=== PATIENT | male | born 1930 | race Caucasian/White ===

== ENCOUNTER 2016-03-07 10:06 | Emergency (ER) | payer MEDICARE ==
[~2016-03-07 10:06] MED LIST: /DULO30CA PO; /PANT40TA PO; ALBU17IN INH; ASPI81CH PO; CALC25TA PO; COMBAER6 INH; COMBRESP INH; COZA50TA PO; CYMB60CA3 PO; D 202000 PO; FLOM5CAP PO; FOLI1TAB2 PO; GABA-279 PO; GABA100C PO; INHALER INH; KEPP1TAB2 PO; KEPP500T6 PO; LOSA100T PO; MAGN400C2 PO; MAGN400T5 PO; MECL-68 PO; NEUR100C PO; NIFE15CA PO; PROTPAK PO; SELE25SHA TOP; SIMV20TA2 PO; SYMB16INH INH; SYMB80INH INH; SYNT50TA PO; SYNTHROID PO; TRAZ50TA4 PO; TRIA1OI TOP; TYLE325T5 PO; VITA10002 PO; VITA100041 PO; VITA100T60 PO; ZOCO20TA PO; [UNRECOGNIZED DRUG - CODE] TOP
[2016-03-07] MEDS ORDERED: LABETALOL HCL 100 MG/20 ML VIAL As Ordered ONE (13:09)
[2016-03-07] MEDS ORDERED: OXAZEPAM 15 MG CAP As Ordered ONE (13:09)
[2016-03-07] MEDS ORDERED: ASPIRIN 81 MG CHEW TABLET As Ordered ONE (13:09)
--- NOTE | 2016-03-07 13:18 | REP ---
PA and lateral chest 03/07/2016 Indication redness of breath Comparison PA and lateral chest 02/06/2009, portable chest 11/04/2014 Cardiac silhouette is of normal size. Mild ectasia and tortuosity of descending thoracic aorta. Small left basilar nodular opacity of 6 mm diameter is most compatible with a nipple shadow. The bones and soft tissues are within normal limits. Impression: 1. Normal cardiomediastinal silhouette 2. 6 mm nodular opacity in left lower lung field is likely a nipple shadow. This can be evaluated by obtaining PA chest with nipple markers. Signed by Paige Morfin MD 03/07/2016 01:10 P
[2016-03-07 13:49] LABS: BASO % 0.1 % (0.0-1.0); EOS # 0.1 K/mm3 (0.0-0.50); EOS % 0.7 % (0.0-3.0); LARGE UNSTAINED CELL # 0.2 K/mm3 (0.0-0.4); LARGE UNSTAINED CELL % 2.1 % (0.0-4.0); LYMPH # 0.9 K/mm3 (1.5-4.5); MEAN CORPUSCULAR HEMOGLOBIN 30.1 pg (27.0-33.0); MEAN CORPUSCULAR HGB CONC 34.5 g/dl (32.0-36.5); MEAN CORPUSCULAR VOLUME 87.3 fl (80.0-96.0); MONO # 0.6 K/mm3 (0.0-0.8); MONO % 6.6 % (0.0-5.0); NEUTROPHILS # 7.2 K/mm3 (1.8-7.7); NEUTROPHILS % 80.5 % (36.0-66.0); PLATELET COUNT, AUTOMATED 166 k/mm3 (150-450); RED CELL DISTRIBUTION WIDTH 13.3 % (11.5-14.5)
[2016-03-07 13:59] LABS: ALBUMIN 3.6 GM/DL (3.2-5.2); ALKALINE PHOSPHATASE 70 U/L (45-117); ALT/SGPT 17 U/L (12-78); ANION GAP 13 MEQ/L (8-16); AST/SGOT 16 U/L (15-37); BILIRUBIN,DIRECT 0.1 MG/DL (0.0-0.2); BILIRUBIN,TOTAL 0.5 MG/DL (0.2-1.0); BLOOD UREA NITROGEN 23 MG/DL (7-18); CALCIUM LEVEL 8.9 MG/DL (8.8-10.2); CARBON DIOXIDE LEVEL 22 MEQ/L (21-32); CHLORIDE LEVEL 103 MEQ/L (98-107); CREATININE FOR GFR 1.46 MG/DL (0.70-1.30); GLOMERULAR FILTRATION RATE 48.5 (>35); GLUCOSE, FASTING 90 MG/DL (83-110); POTASSIUM SERUM 3.8 MEQ/L (3.5-5.1); SODIUM LEVEL 138 MEQ/L (136-145); TOTAL PROTEIN 7.2 GM/DL (6.4-8.2)
--- NOTE | 2016-03-07 16:26 | EDDOCDS ---
[facility] Name: Chidi May Age: 86 yrs Sex: Male : 1930 Arrival Date: 03/07/2016 Time: 10:06 Bed TR8 Private MD: Diagnosis: Anxiety disorder due to known physiological condition Presentation: 03/07 10:10 Presenting complaint: EMS states: INITIAL CALL WAS FOR DIFFICULTY BREATHING OXYGEN EVEN srm THOUGH SATS WERE IN HIGH 90'S. FEELING WEAK. HAVING ANXIETY. The last date and time the patient was known to be well was was at an unknown time on an unknown date. No acute neurological deficit is noted. The patients blood glucose was checked before arriving to the hospital and was found to be normal. Adult Sepsis Screening: The patient does not have new or worsening altered mentation. Suicide/Homicide risk assessment- the patient denies having any suicidal and/or homicidal ideations and does not present with any other emotional, behavioral or mental health complaints. Status: Patient is not a children's service worker or dependent. Transition of care: patient was not received from another setting of care. 10:10 Acuity: AMEE Level 3 srm 10:10 Method Of Arrival: Ambulance srm 10:22 Adult Sepsis Screening: Patient's respiratory rate is less than 22. Systolic blood srm pressure is greater than 100. Patient has a qSOFA score of 0- Negative Sepsis Screen. Care prior to arrival: IV initiated. Saline lock initiated. Glucose check. 18 g LAC fsbs 106. Triage Assessment: 10:22 The onset of the patients symptoms was at an unknown time. General: Appears in no srm apparent distress, Behavior is appropriate for age, cooperative. Pain: Denies pain. Neurological: Level of Consciousness is awake, alert, Oriented to person, place, time, Moves all extremities. Full function Speech is normal, slow to answer questions but normal for pt after craniotomy. Facial symmetry appears normal, Reports weakness. Historical: - Allergies: Morphine (Vomit); - Home Meds: 1. methylphenidate 5 mg Oral tab daily (Last dose: 03/06/2016) 2. Synthroid 50 mcg Oral tab 1 tab once daily (Last dose: 03/06/2016) 3. losartan 50 mg oral tab 1 tab once daily (Last dose: 03/06/2016) 4. simvastatin 20 mg Oral tab 1 tab once daily (Last dose: 03/06/2016) 5. pantoprazole 40 mg oral TbEC 1 tab once daily (Last dose: 03/06/2016) 6. duloxetine 60 mg Oral cpDR 1 cap once daily (Last dose: 03/06/2016) 7. levetiracetam 500 mg oral tab 2 times per day (Last dose: 03/06/2016) - PMHx: Hypercholesterolemia; Hypertension; GERD; Thyroid problem; COPD; Anxiety; Alcoholism; barin cancer; leiomyasarcoma scalp; colon cancer; cerebellar aneurysm; Subdural Hematoma; kidney disease stage 3; - PSHx: brain bleed; Craniotomy; toe nail removal; Appendectomy; - Social history: Smoking status: Patient states former smoker of tobacco. No barriers to communication noted, The patient speaks fluent Lithuanian, Speaks appropriately for age. - Family history: Not pertinent. - : The pt / caregiver states he / she is not on anticoagulants. Home medication list is obtained from external med list Unable to Verify Home Med List with the patient / caregiver. - Exposure Risk Screening:: None identified. Screenin:22 Screening information is obtained from the patient. Fall risk: No risks identified. js13 Assistance ADL's: requires no assistance with activities of daily living. Abuse/DV Screen: The patient / caregiver reports he/she is: not in a situation that causes fear, pain or injury. Nutritional screening: No deficits noted. Advance Directives: Currently, there is no health care proxy. home support is adequate. Assessment: 10:29 General: Appears in no apparent distress, Behavior is appropriate for age, cooperative, srm becomes anxious anD tearful when talking about son and grandson who are in [place] and in the hospital but he cant remember why. Respiratory: Airway is patent Respiratory effort is even, unlabored, Breath sounds are clear bilaterally. GI: Abdomen is non- distended Bowel sounds present X 4 quads. Abd is soft and non tender X 4 quads. Derm: No deficits noted. 10:45 General: Appears in no apparent distress, Behavior is appropriate for age, cooperative. ml6 Pain: Denies pain. Neurological: No deficits noted. Level of Consciousness is awake, alert, Oriented to person, place, time. Cardiovascular: No deficits noted. Capillary refill < 3 seconds is brisk in bilateral fingers toes Heart tones S1 S2 present. Respiratory: No deficits noted. Airway is patent Respiratory effort is even, unlabored, Respiratory pattern is regular, symmetrical, Breath sounds are clear bilaterally. GI: No deficits noted. 11:23 General: patient very anxious states that he was trying to call son and grandson in ml6 [place] and was having trouble making the call, states he then began feeling SOB. 12:30 Reassessment: patient anxious shaking, states that he needs to get ahold of his son. ml6 Daughter in to see patient, states that patient drinks heavily 1L whiskey per day, states no ETOH since last evening. 13:30 Reassessment: Patient appears in no apparent distress at this time. Patient denies pain ml6 at this time. Patient states feeling better. Patient states symptoms have improved. 14:30 Reassessment: Patient appears in no apparent distress at this time. Patient denies pain ml6 at this time. Patient states feeling better. Patient states symptoms have improved. 15:20 General: Appears in no apparent distress, comfortable, Behavior is appropriate for age, ml6 cooperative. Pain: Denies pain. Neurological: No deficits noted. Level of Consciousness is awake, alert, Oriented to person, place, time. Cardiovascular: No deficits noted. Capillary refill < 3 seconds is brisk in bilateral fingers toes Respiratory: No deficits noted. Airway is patent Respiratory effort is even, unlabored, Respiratory pattern is regular, symmetrical. Vital Signs: 10:22 BP 200 / 117; Pulse 59; Resp 18; Temp 99.0(TE); Pulse Ox 98% on R/A; Weight 71.67 kg; dem1 10:28 BP 190 / 88 RA Sitting (man/); [facility] 10:46 BP 178 / 63 (auto/); js13 10:46 Pulse 66 MON; Resp 16; Pulse Ox 98% on R/A; Pain 0/10; js13 11:01 BP 180 / 84 (auto/); js13 11:01 Pulse 66 MON; Resp 16; Pulse Ox 96% on R/A; js13 11:16 BP 179 / 78 (auto/); js13 11:16 Pulse 64 MON; Resp 16; Pulse Ox 96% on R/A; js13 12:30 ml6 13:30 BP 177 / 98; Pulse 65; Resp 18; Pulse Ox 98% on R/A; Pain 0/10; ml6 14:48 BP 160 / 74; Pulse 65; Resp 18; Pulse Ox 98% on R/A; ml6 15:20 BP 155 / 84; Pulse 62; Resp 18; Temp 98.3(O); Pulse Ox 98% on R/A; Pain 0/10; ml6 12:30 patient keeps taking off bp cuff, attempts made to get bp ml6 Vitals: 10:22 Log In Time N/A - ambulance arrival. dem1 10:28 Glucose Measurement D-stick done by EMS. [facility] ED Course: 10:07 Patient visited by Tressa Forrest, Entry Level Project Coordinator. deg 10:07 Patient moved to Waiting deg 10:08 Patient moved to 11 deg 10:12 Triage Initiated srm 10:28 The patient / caregiver is instructed regarding the plan of care and ED course. Patient srm has correct armband on for positive identification. Placed in gown. Bed in low position. Call light in reach. Side rails up X2. front desk monitor on. Pulse ox on. NIBP on. 10:28 Maintain field IV. Dressing intact. Good blood return noted. Site clean & dry. srm 10:31 Patient visited by Samantha Lemus, MARVA. srm 11:04 Patient visited by Zhang Castro, MARVA. ml6 11:30 Patient visited by Zhang Castro, MARVA. ml6 12:08 Patient visited by Niurka Guzman PCA. ls3 12:16 Geremias Oconnor FNP is PHCP. ke 12:16 Patient visited by Geremias Oconnor FNP. ke 12:16 Patient visited by Geremias Oconnor FNP. ke 12:49 Patient visited by Geremias Oconnor FNP. ke 13:03 [facility] Payment Agreement was scanned into [employer] and attached to record. jp5 13:07 EKG done. (by ED staff). Reviewed by Geremias PEÑA. ct3 13:10 Patient visited by Mari Figueroa PCA. ct3 13:34 Patient visited by Zhang Castro, MARVA. ml6 13:34 Liver Profile Sent. ml6 13:35 -Blood Culture Sent. ml6 13:35 B-Type Natiuretic Peptide Sent. ml6 13:35 Basic Metabolic Profile Sent. ml6 13:35 CBC with Diff Sent. ml6 13:35 ETOH Sent. ml6 13:35 Cardiac Injury Profile Sent. ml6 13:35 Troponin Sent. ml6 13:35 BLOOD CULTURES Sent. ml6 13:45 Chest, 2 View (pa\E\lat) Returned. EDMS 13:57 Patient visited by Geremias Oconnor FNP. ke 14:21 Patient visited by Geremias Oconnor FNP. ke 14:39 Patient visited by Zhang Castro RN. ml6 15:07 Chris Miranda is Referral Physician. ke 15:20 Discontinued IV bleeding controlled, pressure dressing applied, No redness/swelling at ml6 site. No procedures done that require assistance. 15:57 Patient moved to [place] [id number] Administered Medications: 13:10 Drug: Oxazepam 30 mg [oxazepam 15 mg capsule (2 caps)] Route: PO; ml6 13:10 Drug: Aspirin 324 mg [aspirin 81 mg chewable tablet (4 tabs)] Route: PO; ml6 13:10 Drug: Labetalol 10 mg [labetalol 5 mg/mL intravenous solution (2 mL)] Route: IVP; Rate: ml6 bolus; Infused Over: 2 mins; Site: left antecubital; 14:39 Drug: Labetalol 10 mg [labetalol 5 mg/mL intravenous solution (2 mL)] Route: IVP; Rate: ml6 bolus; Infused Over: 2 mins; Site: left antecubital; Order Results: Lab Order: B-Type Natiuretic Peptide; SPEC'M 03/07/16 13:29 Test: BRAIN NATRIURETIC PEPTIDE; Value: 94.7; Range: <100; Units: PG/ML; Status: F Lab Order: Basic Metabolic Profile; SPEC'M 03/07/16 13:29 Test: GLUCOSE, FASTING; Value: 90; Range: 83-110; Units: MG/DL; Status: F Test: BLOOD UREA NITROGEN; Value: 23; Range: 7-18; Abnormal: Above high normal; Units: MG/DL; Status: F Test: CREATININE FOR GFR; Value: 1.46; Range: 0.70-1.30; Abnormal: Above high normal; Units: MG/DL; Status: F Test: GLOMERULAR FILTRATION RATE; Value: 48.5; Range: >35; Status: F Test: SODIUM LEVEL; Value: 138; Range: 136-145; Units: MEQ/L; Status: F Test: POTASSIUM SERUM; Value: 3.8; Range: 3.5-5.1; Units: MEQ/L; Status: F Test: CHLORIDE LEVEL; Value: 103; Range: 98-107; Units: MEQ/L; Status: F Test: CARBON DIOXIDE LEVEL; Value: 22; Range: 21-32; Units: MEQ/L; Status: F Test: ANION GAP; Value: 13; Range: 8-16; Units: MEQ/L; Status: F Test: CALCIUM LEVEL; Value: 8.9; Range: 8.8-10.2; Units: MG/DL; Status: F Test Note: ; Units are mL/min/1.73 m2 Chronic Kidney Disease Staging per NKF: Stage I & II GFR >=60 Normal to Mildly Decreased Stage III GFR 30-59 Moderately Decreased Stage IV GFR 15-29 Severely Decreased Stage V GFR <15 Very Little GFR Left ESRD GFR <15 on LOOM CHANGER Lab Order: CBC with Diff; SPEC'M 03/07/16 13:29 Test: WHITE BLOOD COUNT; Value: 9.0; Range: 4.0-10.0; Units: K/mm3; Status: F Test: RED BLOOD COUNT; Value: 4.76; Range: 4.30-6.10; Units: M/mm3; Status: F Test: HEMOGLOBIN; Value: 14.3; Range: 14.0-18.0; Units: g/dl; Status: F Test: HEMATOCRIT; Value: 41.6; Range: 42.0-52.0; Abnormal: Below low normal; Units: %; Status: F Test: MEAN CORPUSCULAR VOLUME; Value: 87.3; Range: 80.0-96.0; Units: fl; Status: F Test: MEAN CORPUSCULAR HEMOGLOBIN; Value: 30.1; Range: 27.0-33.0; Units: pg; Status: F Test: MEAN CORPUSCULAR HGB CONC; Value: 34.5; Range: 32.0-36.5; Units: g/dl; Status: F Test: RED CELL DISTRIBUTION WIDTH; Value: 13.3; Range: 11.5-14.5; Units: %; Status: F Test: PLATELET COUNT, AUTOMATED; Value: 166; Range: 150-450; Units: k/mm3; Status: F Test: NEUTROPHILS %; Value: 80.5; Range: 36.0-66.0; Abnormal: Above high normal; Units: %; Status: F Test: LYMPH %; Value: 10.0; Range: 24.0-44.0; Abnormal: Below low normal; Units: %; Status: F Test: MONO %; Value: 6.6; Range: 0.0-5.0; Abnormal: Above high normal; Units: %; Status: F Test: EOS %; Value: 0.7; Range: 0.0-3.0; Units: %; Status: F Test: BASO %; Value: 0.1; Range: 0.0-1.0; Units: %; Status: F Test: LARGE UNSTAINED CELL %; Value: 2.1; Range: 0.0-4.0; Units: %; Status: F Test: NEUTROPHILS #; Value: 7.2; Range: 1.8-7.7; Units: K/mm3; Status: F Test: LYMPH #; Value: 0.9; Range: 1.5-4.5; Abnormal: Below low normal; Units: K/mm3; Status: F Test: MONO #; Value: 0.6; Range: 0.0-0.8; Units: K/mm3; Status: F Test: EOS #; Value: 0.1; Range: 0.0-0.50; Units: K/mm3; Status: F Test: BASO #; Value: 0.0; Range: 0.0-0.2; Units: K/mm3; Status: F Test: LARGE UNSTAINED CELL #; Value: 0.2; Range: 0.0-0.4; Units: K/mm3; Status: F Lab Order: Cardiac Injury Profile; SPEC'M 03/07/16 13:29 Test: CPK CREATINE PHOSPHOKINASE; Value: 45; Range: 39-308; Units: U/L; Status: F Test: CK-MB VALUE MASS; Value: 1.0; Range: 0.0-3.6; Units: NG/ML; Status: F Test: MB/CK RELATIVE INDEX; Value: 2.22; Range: < OR =4; Status: F Test Note: ; DIAGNOSIS CRITERIA MMB ng/ml Relative Index (RI) NON-AMI < or = 5 N/A [place]ONE > 5 < or = 4 AMI > 5 > 4 Lab Order: Troponin; SPEC'M 03/07/16 13:29 Test: TROPONIN I; Value: < 0.02; Range: < 0.10; Units: NG/ML; Status: F Test Note: ; Troponin I Reference Interval for Siemens Metafused LOCI: 99th Percentile= 0.00-0.045 ng/ml Risk Stratification: <= 0.10 ng/ml Decreased Risk for Adverse Clinical Events. 0.10-1.50 ng/ml Increased Risk for Adverse Clinical Events. Evaluation of additional criterion and/or repeat testing in 2-6 hours is suggested to rule out myocardial damage. >= 1.50 ng/ml Indicative of Myocardial Injury. Lab Order: ETOH; SPEC' 03/07/16 13:29 Test: ETHYL ALCOHOL (ETHANOL); Value: < 0.003; Range: 0.000-0.010; Units: %; Status: F Lab Order: Liver Profile; [facility]' 03/07/16 13:29 Test: AST/SGOT; Value: 16; Range: 15-37; Units: U/L; Status: F Test: ALT/SGPT; Value: 17; Range: 12-78; Units: U/L; Status: F Test: ALKALINE PHOSPHATASE; Value: 70; Range: 45-117; Units: U/L; Status: F Test: BILIRUBIN,TOTAL; Value: 0.5; Range: 0.2-1.0; Units: MG/DL; Status: F Test: BILIRUBIN,DIRECT; Value: 0.1; Range: 0.0-0.2; Units: MG/DL; Status: F Test: TOTAL PROTEIN; Value: 7.2; Range: 6.4-8.2; Units: GM/DL; Status: F Test: ALBUMIN; Value: 3.6; Range: 3.2-5.2; Units: GM/DL; Status: F Test: ALBUMIN/GLOBULIN RATIO; Value: 1.00; Range: 1.00-1.93; Status: F Radiology Order: Chest, 2 View (pa\E\lat) Test: Chest, 2 View (pa\E\lat) REASON FOR EXAMINATION: Shortness of Breath; PA and lateral chest 03/07/2016; ; Indication redness of breath; ; Comparison PA and lateral chest 02/06/2009, portable chest 11/04/2014; ; Cardiac silhouette is of normal size. Mild ectasia and tortuosity of descending; thoracic aorta. Small left basilar nodular opacity of 6 mm diameter is most; compatible with a nipple shadow.; ; The bones and soft tissues are within normal limits.; ; Impression:; 1. Normal cardiomediastinal silhouette; 2. 6 mm nodular opacity in left lower lung field is likely a nipple shadow.; This can be evaluated by obtaining PA chest with nipple markers.; ; ; Signed by; Paige Morfin MD 03/07/2016 01:10 P; Outcome: 15:08 Discharge ordered by Provider. ke 15:20 Discharge Assessment: Patient awake, alert and oriented x 3. No cognitive and/or ml6 functional deficits noted. Patient verbalized understanding of disposition instructions. patient administered narcotics - no. The following High Risk Discharge criteria are identified: None. Discharged to home ambulatory, with family. Condition: stable. Discharge instructions given to patient, family, Instructed on discharge instructions, follow up and referral plans. medication usage, Demonstrated understanding of instructions, medications, Pt was receptive of discharge instructions/ teaching. Prescriptions given X 1. CT Study completed. Property :Personal belongings accompany Pt. 16:25 Patient left the ED. ml6 Signatures: Dispatcher [employer] EDMS Tressa Forrest, Entry Level Project Coordinator Unit deg Samantha Lemus RN RN srm Elsner, Karl, FITNESS CONSULTANT FITNESS CONSULTANT Gissell Pendleton,RN Zhang Wilson RN RN ml6 Mari Figueroa, VACUUM CLEANER MECHANIC VACUUM CLEANER MECHANIC ct3 Ivette Matthew dem1 Gissell Lau,RN RN js13 Aminata Taylor jp5 Niurka Guzman, VACUUM CLEANER MECHANIC VACUUM CLEANER MECHANIC ls3 Corrections: (The following items were deleted from the chart) 10:24 10:22 BP 200 / 117; Pulse 59bpm; Resp 18bpm; Pulse Ox 98% RA; Temp 99.0F Temporal; dem1 dem1 11:27 10:45 General: Appears in no apparent distress, Behavior is appropriate for age, ml6 sailaja brown 11:27 10:45 Pain: Denies pain. js13 ml6 : 10:45 Neurological: No deficits noted. Level of Consciousness is awake, alert, Oriented ml6 to person, place, time, [facility] : 10:45 Cardiovascular: No deficits noted. Capillary refill < 3 seconds is brisk in ml6 bilateral fingers toes Heart tones S1 S2 present [facility] : 10:45 Respiratory: No deficits noted. Airway is patent Respiratory effort is even, ml6 unlabored, Respiratory pattern is regular, symmetrical, Breath sounds are clear bilaterally. [facility] : 10:45 GI: No deficits noted. [facility] ml6 MTDD
--- NOTE | 2016-03-07 16:26 | EDDOCDS ---
Physician Documentation [facility] Name: Chidi May Age: 86 yrs Sex: Male : 1930 Arrival Date: 03/07/2016 Time: 10:06 Bed TR8 Private MD: Disposition: 03/07/16 15:08 Discharged to Home/Self Care. Impression: Anxiety disorder due to known physiological condition. - Condition is Stable. - Discharge Instructions: Alcohol Abuse and Nutrition, Panic Attacks, [id number]. - Prescriptions for oxazepam 30 mg Oral capsule - take 1 capsule by ORAL route 3 times per day; 20 capsule. - Medication Reconciliation, Local Pharmacy Hours form. - Follow up: Chris Miranda; When: 4 - 5 days; Reason: Recheck today's complaints, Continuance of care. - Problem is an acute exacerbation. - Symptoms have improved. Historical: - Allergies: Morphine (Vomit); - Home Meds: 1. methylphenidate 5 mg Oral tab daily (Last dose: 03/06/2016) 2. Synthroid 50 mcg Oral tab 1 tab once daily (Last dose: 03/06/2016) 3. losartan 50 mg oral tab 1 tab once daily (Last dose: 03/06/2016) 4. simvastatin 20 mg Oral tab 1 tab once daily (Last dose: 03/06/2016) 5. pantoprazole 40 mg oral TbEC 1 tab once daily (Last dose: 03/06/2016) 6. duloxetine 60 mg Oral cpDR 1 cap once daily (Last dose: 03/06/2016) 7. levetiracetam 500 mg oral tab 2 times per day (Last dose: 03/06/2016) - PMHx: Hypercholesterolemia; Hypertension; GERD; Thyroid problem; COPD; Anxiety; Alcoholism; barin cancer; leiomyasarcoma scalp; colon cancer; cerebellar aneurysm; Subdural Hematoma; kidney disease stage 3; - PSHx: brain bleed; Craniotomy; toe nail removal; Appendectomy; - Social history: Smoking status: Patient states former smoker of tobacco. No barriers to communication noted, The patient speaks fluent Maori, Speaks appropriately for age. - Family history: Not pertinent. - : The pt / caregiver states he / she is not on anticoagulants. Home medication list is obtained from external med list Unable to Verify Home Med List with the patient / caregiver. - Exposure Risk Screening:: None identified. Vital Signs: 03/07 10:22 BP 200 / 117; Pulse 59; Resp 18; Temp 99.0(TE); Pulse Ox 98% on R/A; Weight 71.67 kg / dem1 158.01 lbs; 10:28 BP 190 / 88 RA Sitting (man/); srm 10:46 BP 178 / 63 (auto/); js13 10:46 Pulse 66 MON; Resp 16; Pulse Ox 98% on R/A; Pain 0/10; js13 11:01 BP 180 / 84 (auto/); js13 11:01 Pulse 66 MON; Resp 16; Pulse Ox 96% on R/A; js13 11:16 BP 179 / 78 (auto/); js13 11:16 Pulse 64 MON; Resp 16; Pulse Ox 96% on R/A; js13 12:30 ml6 13:30 BP 177 / 98; Pulse 65; Resp 18; Pulse Ox 98% on R/A; Pain 0/10; ml6 14:48 BP 160 / 74; Pulse 65; Resp 18; Pulse Ox 98% on R/A; ml6 15:20 BP 155 / 84; Pulse 62; Resp 18; Temp 98.3(O); Pulse Ox 98% on R/A; Pain 0/10; ml6 12:30 patient keeps taking off bp cuff, attempts made to get bp ml6 MDM: 12:29 -Blood Culture (Adults Only), peripheral from different site, or from device/port/PICC ke etc. if present ordered. 12:29 Program Control Analyst/Pulse Ox/q 15 min VS ordered. ke 12:29 IV Saline Lock ordered. ke 12:29 Oxygen at 4L/Min NC or Home dosage ordered. ke 12:29 Rhythm Strip to chart ordered. ke 12:29 Oxazepam 30 mg PO once ordered. ke 12:30 B-Type Natiuretic Peptide Ordered. EDMS 12:30 Basic Metabolic Profile Ordered. EDMS 12:30 CBC with Diff Ordered. EDMS 12:30 Cardiac Injury Profile Ordered. EDMS 12:30 Troponin Ordered. EDMS 12:30 ETOH Ordered. EDMS 12:30 Liver Profile Ordered. EDMS 12:30 -Blood Culture Ordered. EDMS 12:30 Aspirin Chewable Tablet 324 mg PO once ordered. ke 12:30 Labetalol 10 mg IVP at bolus once over 2 mins ordered. ke 12:31 Chest, 2 View (pa\E\lat) Ordered. EDMS 12:31 ECG WITH READING ER PHYS+CARDIAG ordered. EDMS 12:38 -Blood Culture (Adults Only), peripheral from different site, or from device/port/PICC deg etc. if present complete. 12:39 BLOOD CULTURES Ordered. EDMS 13:03 [facility] Payment Agreement was scanned into [employer] and attached to record. jp5 13:03 Financial registration complete. jp5 13:45 Keppra (short red top tube) Ordered. EDMS 14:04 Basic Metabolic Profile Reviewed. ke 14:04 CBC with Diff Reviewed. ke 14:04 Troponin Reviewed. ke 14:04 ETOH Reviewed. ke 14:04 Liver Profile Reviewed. ke 14:04 Chest, 2 View (pa\E\lat) Reviewed. ke 14:06 Labetalol 10 mg IVP at bolus once over 2 mins ordered. ke 14:22 Basic Metabolic Profile Reviewed. ke 14:22 Cardiac Injury Profile Reviewed. ke 14:22 Troponin Reviewed. ke 14:22 ETOH Reviewed. ke 14:22 Liver Profile Reviewed. ke 14:37 B-Type Natiuretic Peptide Reviewed. ke Administered Medications: 13:10 Drug: Oxazepam 30 mg [oxazepam 15 mg capsule (2 caps)] Route: PO; ml6 13:10 Drug: Aspirin 324 mg [aspirin 81 mg chewable tablet (4 tabs)] Route: PO; ml6 13:10 Drug: Labetalol 10 mg [labetalol 5 mg/mL intravenous solution (2 mL)] Route: IVP; Rate: ml6 bolus; Infused Over: 2 mins; Site: left antecubital; 14:39 Drug: Labetalol 10 mg [labetalol 5 mg/mL intravenous solution (2 mL)] Route: IVP; Rate: ml6 bolus; Infused Over: 2 mins; Site: left antecubital; Signatures: Dispatcher [employer] EDMS Tressa Forrest, Petroleum Refinery Operator Unit deg Samantha Lemus RN RN srm Elsner, Karl, SEA KAYAKING GUIDE SEA KAYAKING GUIDE Zhang De La Vega RN RN ml6 Aminata Taylor jp5 The chart was reviewed and I authenticate all verbal orders and agree with the evaluation and treatment provided.Attachments: 13:03 [facility] Payment Agreement jp5 [id number]
--- NOTE | 2016-03-08 08:27 | ECGEPIP ---
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
--- NOTE | 2016-03-09 17:26 | EDDOCDS ---
Physician Documentation [facility] Name: Chidi May Age: 86 yrs Sex: Male : 1930 Arrival Date: 03/07/2016 Time: 10:06 Bed TR8 Private MD: Disposition: 03/07/16 15:08 Discharged to Home/Self Care. Impression: Anxiety disorder due to known physiological condition. - Condition is Stable. - Discharge Instructions: Alcohol Abuse and Nutrition, Panic Attacks, [id number]. - Prescriptions for oxazepam 30 mg Oral capsule - take 1 capsule by ORAL route 3 times per day; 20 capsule. - Medication Reconciliation, Local Pharmacy Hours form. - Follow up: Chris Miranda; When: 4 - 5 days; Reason: Recheck today's complaints, Continuance of care. - Problem is an acute exacerbation. - Symptoms have improved. Historical: - Allergies: Morphine (Vomit); - Home Meds: 1. methylphenidate 5 mg Oral tab daily (Last dose: 03/06/2016) 2. Synthroid 50 mcg Oral tab 1 tab once daily (Last dose: 03/06/2016) 3. losartan 50 mg oral tab 1 tab once daily (Last dose: 03/06/2016) 4. simvastatin 20 mg Oral tab 1 tab once daily (Last dose: 03/06/2016) 5. pantoprazole 40 mg oral TbEC 1 tab once daily (Last dose: 03/06/2016) 6. duloxetine 60 mg Oral cpDR 1 cap once daily (Last dose: 03/06/2016) 7. levetiracetam 500 mg oral tab 2 times per day (Last dose: 03/06/2016) - PMHx: Hypercholesterolemia; Hypertension; GERD; Thyroid problem; COPD; Anxiety; Alcoholism; barin cancer; leiomyasarcoma scalp; colon cancer; cerebellar aneurysm; Subdural Hematoma; kidney disease stage 3; - PSHx: brain bleed; Craniotomy; toe nail removal; Appendectomy; - Social history: Smoking status: Patient states former smoker of tobacco. No barriers to communication noted, The patient speaks fluent Pashto, Speaks appropriately for age. - Family history: Not pertinent. - : The pt / caregiver states he / she is not on anticoagulants. Home medication list is obtained from external med list Unable to Verify Home Med List with the patient / caregiver. - Exposure Risk Screening:: None identified. Vital Signs: 03/07 10:22 BP 200 / 117; Pulse 59; Resp 18; Temp 99.0(TE); Pulse Ox 98% on R/A; Weight 71.67 kg / dem1 158.01 lbs; 10:28 BP 190 / 88 RA Sitting (man/); srm 10:46 BP 178 / 63 (auto/); js13 10:46 Pulse 66 MON; Resp 16; Pulse Ox 98% on R/A; Pain 0/10; js13 11:01 BP 180 / 84 (auto/); js13 11:01 Pulse 66 MON; Resp 16; Pulse Ox 96% on R/A; js13 11:16 BP 179 / 78 (auto/); js13 11:16 Pulse 64 MON; Resp 16; Pulse Ox 96% on R/A; js13 12:30 ml6 13:30 BP 177 / 98; Pulse 65; Resp 18; Pulse Ox 98% on R/A; Pain 0/10; ml6 14:48 BP 160 / 74; Pulse 65; Resp 18; Pulse Ox 98% on R/A; ml6 15:20 BP 155 / 84; Pulse 62; Resp 18; Temp 98.3(O); Pulse Ox 98% on R/A; Pain 0/10; ml6 12:30 patient keeps taking off bp cuff, attempts made to get bp ml6 MDM: 12:29 -Blood Culture (Adults Only), peripheral from different site, or from device/port/PICC ke etc. if present ordered. 12:29 Children'S Lunchroom Supervisor/Pulse Ox/q 15 min VS ordered. ke 12:29 IV Saline Lock ordered. ke 12:29 Oxygen at 4L/Min NC or Home dosage ordered. ke 12:29 Rhythm Strip to chart ordered. ke 12:29 Oxazepam 30 mg PO once ordered. ke 12:30 B-Type Natiuretic Peptide Ordered. EDMS 12:30 Basic Metabolic Profile Ordered. EDMS 12:30 CBC with Diff Ordered. EDMS 12:30 Cardiac Injury Profile Ordered. EDMS 12:30 Troponin Ordered. EDMS 12:30 ETOH Ordered. EDMS 12:30 Liver Profile Ordered. EDMS 12:30 -Blood Culture Ordered. EDMS 12:30 Aspirin Chewable Tablet 324 mg PO once ordered. ke 12:30 Labetalol 10 mg IVP at bolus once over 2 mins ordered. ke 12:31 Chest, 2 View (pa\E\lat) Ordered. EDMS 12:31 ECG WITH READING ER PHYS+CARDIAG ordered. EDMS 12:38 -Blood Culture (Adults Only), peripheral from different site, or from device/port/PICC deg etc. if present complete. 12:39 BLOOD CULTURES Ordered. EDMS 13:03 [facility] Payment Agreement was scanned into [employer] and attached to record. jp5 13:03 Financial registration complete. jp5 13:45 Keppra (short red top tube) Ordered. EDMS 14:04 Basic Metabolic Profile Reviewed. ke 14:04 CBC with Diff Reviewed. ke 14:04 Troponin Reviewed. ke 14:04 ETOH Reviewed. ke 14:04 Liver Profile Reviewed. ke 14:04 Chest, 2 View (pa\E\lat) Reviewed. ke 14:06 Labetalol 10 mg IVP at bolus once over 2 mins ordered. ke 14:22 Basic Metabolic Profile Reviewed. ke 14:22 Cardiac Injury Profile Reviewed. ke 14:22 Troponin Reviewed. ke 14:22 ETOH Reviewed. ke 14:22 Liver Profile Reviewed. ke 14:37 B-Type Natiuretic Peptide Reviewed. ke 03/08 09:34 T-Sheet-- Draft Copy was scanned into [employer] and attached to record. gb 09:35 ECG/EKG was scanned into [employer] and attached to record. gb 09:36 Trend VS was scanned into [employer] and attached to record. gb 09:36 PCR was scanned into [employer] and attached to record. gb Administered Medications: 03/07 13:10 Drug: Oxazepam 30 mg [oxazepam 15 mg capsule (2 caps)] Route: PO; ml6 13:10 Drug: Aspirin 324 mg [aspirin 81 mg chewable tablet (4 tabs)] Route: PO; ml6 13:10 Drug: Labetalol 10 mg [labetalol 5 mg/mL intravenous solution (2 mL)] Route: IVP; Rate: ml6 bolus; Infused Over: 2 mins; Site: left antecubital; 14:39 Drug: Labetalol 10 mg [labetalol 5 mg/mL intravenous solution (2 mL)] Route: IVP; Rate: ml6 bolus; Infused Over: 2 mins; Site: left antecubital; Signatures: Dispatcher [employer] EDTressa Sierra, System Support Developer Unit deg Samantha Lemus, RN RN [facility] Swati Avila, Reg Reg gb Geremias Oconnor, GRINDER SET UP OPERATOR GEAR TOOL GRINDER SET UP OPERATOR GEAR TOOL Zhang De La Vega, RN RN ml6 Aminata Taylor jp5 The chart was reviewed and I authenticate all verbal orders and agree with the evaluation and treatment provided.Attachments: 13:03 [facility] Payment Agreement jp5 03/08 09:34 T-Sheet-- Draft Copy 09:35 ECG/EKG Chart Complete MTDD
--- NOTE | 2016-03-09 17:26 | EDDOCDS ---
Physician Documentation [facility] Name: Chidi May Age: 86 yrs Sex: Male : 1930 Arrival Date: 03/07/2016 Time: 10:06 Bed TR8 Private MD: Disposition: 03/07/16 15:08 Discharged to Home/Self Care. Impression: Anxiety disorder due to known physiological condition. - Condition is Stable. - Discharge Instructions: Alcohol Abuse and Nutrition, Panic Attacks, [id number]. - Prescriptions for oxazepam 30 mg Oral capsule - take 1 capsule by ORAL route 3 times per day; 20 capsule. - Medication Reconciliation, Local Pharmacy Hours form. - Follow up: Chris Miranda; When: 4 - 5 days; Reason: Recheck today's complaints, Continuance of care. - Problem is an acute exacerbation. - Symptoms have improved. Historical: - Allergies: Morphine (Vomit); - Home Meds: 1. methylphenidate 5 mg Oral tab daily (Last dose: 03/06/2016) 2. Synthroid 50 mcg Oral tab 1 tab once daily (Last dose: 03/06/2016) 3. losartan 50 mg oral tab 1 tab once daily (Last dose: 03/06/2016) 4. simvastatin 20 mg Oral tab 1 tab once daily (Last dose: 03/06/2016) 5. pantoprazole 40 mg oral TbEC 1 tab once daily (Last dose: 03/06/2016) 6. duloxetine 60 mg Oral cpDR 1 cap once daily (Last dose: 03/06/2016) 7. levetiracetam 500 mg oral tab 2 times per day (Last dose: 03/06/2016) - PMHx: Hypercholesterolemia; Hypertension; GERD; Thyroid problem; COPD; Anxiety; Alcoholism; barin cancer; leiomyasarcoma scalp; colon cancer; cerebellar aneurysm; Subdural Hematoma; kidney disease stage 3; - PSHx: brain bleed; Craniotomy; toe nail removal; Appendectomy; - Social history: Smoking status: Patient states former smoker of tobacco. No barriers to communication noted, The patient speaks fluent Latvian, Speaks appropriately for age. - Family history: Not pertinent. - : The pt / caregiver states he / she is not on anticoagulants. Home medication list is obtained from external med list Unable to Verify Home Med List with the patient / caregiver. - Exposure Risk Screening:: None identified. Vital Signs: 03/07 10:22 BP 200 / 117; Pulse 59; Resp 18; Temp 99.0(TE); Pulse Ox 98% on R/A; Weight 71.67 kg / dem1 158.01 lbs; 10:28 BP 190 / 88 RA Sitting (man/); srm 10:46 BP 178 / 63 (auto/); js13 10:46 Pulse 66 MON; Resp 16; Pulse Ox 98% on R/A; Pain 0/10; js13 11:01 BP 180 / 84 (auto/); js13 11:01 Pulse 66 MON; Resp 16; Pulse Ox 96% on R/A; js13 11:16 BP 179 / 78 (auto/); js13 11:16 Pulse 64 MON; Resp 16; Pulse Ox 96% on R/A; js13 12:30 ml6 13:30 BP 177 / 98; Pulse 65; Resp 18; Pulse Ox 98% on R/A; Pain 0/10; ml6 14:48 BP 160 / 74; Pulse 65; Resp 18; Pulse Ox 98% on R/A; ml6 15:20 BP 155 / 84; Pulse 62; Resp 18; Temp 98.3(O); Pulse Ox 98% on R/A; Pain 0/10; ml6 12:30 patient keeps taking off bp cuff, attempts made to get bp ml6 MDM: 12:29 -Blood Culture (Adults Only), peripheral from different site, or from device/port/PICC ke etc. if present ordered. 12:29 Energy Efficiency Finance Manager/Pulse Ox/q 15 min VS ordered. ke 12:29 IV Saline Lock ordered. ke 12:29 Oxygen at 4L/Min NC or Home dosage ordered. ke 12:29 Rhythm Strip to chart ordered. ke 12:29 Oxazepam 30 mg PO once ordered. ke 12:30 B-Type Natiuretic Peptide Ordered. EDMS 12:30 Basic Metabolic Profile Ordered. EDMS 12:30 CBC with Diff Ordered. EDMS 12:30 Cardiac Injury Profile Ordered. EDMS 12:30 Troponin Ordered. EDMS 12:30 ETOH Ordered. EDMS 12:30 Liver Profile Ordered. EDMS 12:30 -Blood Culture Ordered. EDMS 12:30 Aspirin Chewable Tablet 324 mg PO once ordered. ke 12:30 Labetalol 10 mg IVP at bolus once over 2 mins ordered. ke 12:31 Chest, 2 View (pa\E\lat) Ordered. EDMS 12:31 ECG WITH READING ER PHYS+CARDIAG ordered. EDMS 12:38 -Blood Culture (Adults Only), peripheral from different site, or from device/port/PICC deg etc. if present complete. 12:39 BLOOD CULTURES Ordered. EDMS 13:03 [facility] Payment Agreement was scanned into [employer] and attached to record. jp5 13:03 Financial registration complete. jp5 13:45 Keppra (short red top tube) Ordered. EDMS 14:04 Basic Metabolic Profile Reviewed. ke 14:04 CBC with Diff Reviewed. ke 14:04 Troponin Reviewed. ke 14:04 ETOH Reviewed. ke 14:04 Liver Profile Reviewed. ke 14:04 Chest, 2 View (pa\E\lat) Reviewed. ke 14:06 Labetalol 10 mg IVP at bolus once over 2 mins ordered. ke 14:22 Basic Metabolic Profile Reviewed. ke 14:22 Cardiac Injury Profile Reviewed. ke 14:22 Troponin Reviewed. ke 14:22 ETOH Reviewed. ke 14:22 Liver Profile Reviewed. ke 14:37 B-Type Natiuretic Peptide Reviewed. ke 03/08 09:34 T-Sheet-- Draft Copy was scanned into [employer] and attached to record. gb 09:35 ECG/EKG was scanned into [employer] and attached to record. gb 09:36 Trend VS was scanned into [employer] and attached to record. gb 09:36 PCR was scanned into [employer] and attached to record. gb Administered Medications: 03/07 13:10 Drug: Oxazepam 30 mg [oxazepam 15 mg capsule (2 caps)] Route: PO; ml6 13:10 Drug: Aspirin 324 mg [aspirin 81 mg chewable tablet (4 tabs)] Route: PO; ml6 13:10 Drug: Labetalol 10 mg [labetalol 5 mg/mL intravenous solution (2 mL)] Route: IVP; Rate: ml6 bolus; Infused Over: 2 mins; Site: left antecubital; 14:39 Drug: Labetalol 10 mg [labetalol 5 mg/mL intravenous solution (2 mL)] Route: IVP; Rate: ml6 bolus; Infused Over: 2 mins; Site: left antecubital; Signatures: Dispatcher [employer] EDTressa Sierra, Provider Relations Specialist Unit deg Samantha Lemus, RN RN [facility] Swati Avila, Reg Reg gb Geremias Oconnor, EMERGENCY MEDICAL TECHNICIAN/DRIVER EMERGENCY MEDICAL TECHNICIAN/DRIVER Zhang De La Vega, RN RN ml6 Aminata Taylor jp5 The chart was reviewed and I authenticate all verbal orders and agree with the evaluation and treatment provided.Attachments: 13:03 [facility] Payment Agreement jp5 03/08 09:34 T-Sheet-- Draft Copy 09:35 ECG/EKG Chart Complete MTDD
--- NOTE | 2016-03-09 17:26 | EDDOCDS ---
Nurse's Notes [facility] Name: Darian May Age: 86 yrs Sex: Male : 1930 Arrival Date: 03/07/2016 Time: 10:06 Bed TR8 Private MD: Diagnosis: Anxiety disorder due to known physiological condition Presentation: 03/07 10:10 Presenting complaint: EMS states: INITIAL CALL WAS FOR DIFFICULTY BREATHING OXYGEN EVEN srm THOUGH SATS WERE IN HIGH 90'S. FEELING WEAK. HAVING ANXIETY. The last date and time the patient was known to be well was was at an unknown time on an unknown date. No acute neurological deficit is noted. The patients blood glucose was checked before arriving to the hospital and was found to be normal. Adult Sepsis Screening: The patient does not have new or worsening altered mentation. Suicide/Homicide risk assessment- the patient denies having any suicidal and/or homicidal ideations and does not present with any other emotional, behavioral or mental health complaints. Status: Patient is not a teleservices representative or dependent. Transition of care: patient was not received from another setting of care. 10:10 Acuity: AMEE Level 3 srm 10:10 Method Of Arrival: Ambulance srm 10:22 Adult Sepsis Screening: Patient's respiratory rate is less than 22. Systolic blood srm pressure is greater than 100. Patient has a qSOFA score of 0- Negative Sepsis Screen. Care prior to arrival: IV initiated. Saline lock initiated. Glucose check. 18 g LAC fsbs 106. Triage Assessment: 10:22 The onset of the patients symptoms was at an unknown time. General: Appears in no srm apparent distress, Behavior is appropriate for age, cooperative. Pain: Denies pain. Neurological: Level of Consciousness is awake, alert, Oriented to person, place, time, Moves all extremities. Full function Speech is normal, slow to answer questions but normal for pt after craniotomy. Facial symmetry appears normal, Reports weakness. Historical: - Allergies: Morphine (Vomit); - Home Meds: 1. methylphenidate 5 mg Oral tab daily (Last dose: 03/06/2016) 2. Synthroid 50 mcg Oral tab 1 tab once daily (Last dose: 03/06/2016) 3. losartan 50 mg oral tab 1 tab once daily (Last dose: 03/06/2016) 4. simvastatin 20 mg Oral tab 1 tab once daily (Last dose: 03/06/2016) 5. pantoprazole 40 mg oral TbEC 1 tab once daily (Last dose: 03/06/2016) 6. duloxetine 60 mg Oral cpDR 1 cap once daily (Last dose: 03/06/2016) 7. levetiracetam 500 mg oral tab 2 times per day (Last dose: 03/06/2016) - PMHx: Hypercholesterolemia; Hypertension; GERD; Thyroid problem; COPD; Anxiety; Alcoholism; barin cancer; leiomyasarcoma scalp; colon cancer; cerebellar aneurysm; Subdural Hematoma; kidney disease stage 3; - PSHx: brain bleed; Craniotomy; toe nail removal; Appendectomy; - Social history: Smoking status: Patient states former smoker of tobacco. No barriers to communication noted, The patient speaks fluent Danish, Speaks appropriately for age. - Family history: Not pertinent. - : The pt / caregiver states he / she is not on anticoagulants. Home medication list is obtained from external med list Unable to Verify Home Med List with the patient / caregiver. - Exposure Risk Screening:: None identified. Screenin:22 Screening information is obtained from the patient. Fall risk: No risks identified. js13 Assistance ADL's: requires no assistance with activities of daily living. Abuse/DV Screen: The patient / caregiver reports he/she is: not in a situation that causes fear, pain or injury. Nutritional screening: No deficits noted. Advance Directives: Currently, there is no health care proxy. home support is adequate. Assessment: 10:29 General: Appears in no apparent distress, Behavior is appropriate for age, cooperative, srm becomes anxious anD tearful when talking about son and grandson who are in [place] and in the hospital but he cant remember why. Respiratory: Airway is patent Respiratory effort is even, unlabored, Breath sounds are clear bilaterally. GI: Abdomen is non- distended Bowel sounds present X 4 quads. Abd is soft and non tender X 4 quads. Derm: No deficits noted. 10:45 General: Appears in no apparent distress, Behavior is appropriate for age, cooperative. ml6 Pain: Denies pain. Neurological: No deficits noted. Level of Consciousness is awake, alert, Oriented to person, place, time. Cardiovascular: No deficits noted. Capillary refill < 3 seconds is brisk in bilateral fingers toes Heart tones S1 S2 present. Respiratory: No deficits noted. Airway is patent Respiratory effort is even, unlabored, Respiratory pattern is regular, symmetrical, Breath sounds are clear bilaterally. GI: No deficits noted. 11:23 General: patient very anxious states that he was trying to call son and grandson in ml6 [place] and was having trouble making the call, states he then began feeling SOB. 12:30 Reassessment: patient anxious shaking, states that he needs to get ahold of his son. ml6 Daughter in to see patient, states that patient drinks heavily 1L whiskey per day, states no ETOH since last evening. 13:30 Reassessment: Patient appears in no apparent distress at this time. Patient denies pain ml6 at this time. Patient states feeling better. Patient states symptoms have improved. 14:30 Reassessment: Patient appears in no apparent distress at this time. Patient denies pain ml6 at this time. Patient states feeling better. Patient states symptoms have improved. 15:20 General: Appears in no apparent distress, comfortable, Behavior is appropriate for age, ml6 cooperative. Pain: Denies pain. Neurological: No deficits noted. Level of Consciousness is awake, alert, Oriented to person, place, time. Cardiovascular: No deficits noted. Capillary refill < 3 seconds is brisk in bilateral fingers toes Respiratory: No deficits noted. Airway is patent Respiratory effort is even, unlabored, Respiratory pattern is regular, symmetrical. Vital Signs: 10:22 BP 200 / 117; Pulse 59; Resp 18; Temp 99.0(TE); Pulse Ox 98% on R/A; Weight 71.67 kg; dem1 10:28 BP 190 / 88 RA Sitting (man/); [facility] 10:46 BP 178 / 63 (auto/); js13 10:46 Pulse 66 MON; Resp 16; Pulse Ox 98% on R/A; Pain 0/10; js13 11:01 BP 180 / 84 (auto/); js13 11:01 Pulse 66 MON; Resp 16; Pulse Ox 96% on R/A; js13 11:16 BP 179 / 78 (auto/); js13 11:16 Pulse 64 MON; Resp 16; Pulse Ox 96% on R/A; js13 12:30 ml6 13:30 BP 177 / 98; Pulse 65; Resp 18; Pulse Ox 98% on R/A; Pain 0/10; ml6 14:48 BP 160 / 74; Pulse 65; Resp 18; Pulse Ox 98% on R/A; ml6 15:20 BP 155 / 84; Pulse 62; Resp 18; Temp 98.3(O); Pulse Ox 98% on R/A; Pain 0/10; ml6 12:30 patient keeps taking off bp cuff, attempts made to get bp ml6 Vitals: 10:22 Log In Time N/A - ambulance arrival. dem1 10:28 Glucose Measurement D-stick done by EMS. [facility] ED Course: 10:07 Patient visited by Tressa Forrest, Pricing Consultant. deg 10:07 Patient moved to Waiting deg 10:08 Patient moved to 11 deg 10:12 Triage Initiated srm 10:28 The patient / caregiver is instructed regarding the plan of care and ED course. Patient srm has correct armband on for positive identification. Placed in gown. Bed in low position. Call light in reach. Side rails up X2. groundwater monitoring technician on. Pulse ox on. NIBP on. 10:28 Maintain field IV. Dressing intact. Good blood return noted. Site clean & dry. srm 10:31 Patient visited by Samantha Lemus, MARVA. srm 11:04 Patient visited by Zhang Castro, MARVA. ml6 11:30 Patient visited by Zhang Castro, MARVA. ml6 12:08 Patient visited by Niurka Guzman PCA. ls3 12:16 Geremias Oconnor FNP is PHCP. ke 12:16 Patient visited by Geremias Oconnor FNP. ke 12:16 Patient visited by Geremias Oconnor FNP. ke 12:49 Patient visited by Geremias Oconnor FNP. ke 13:03 [facility] Payment Agreement was scanned into [employer] (formerly [employer]) and attached to record. jp5 13:07 EKG done. (by ED staff). Reviewed by Geremias PEÑA. ct3 13:10 Patient visited by Mari Figueroa PCA. ct3 13:34 Patient visited by Zhang Castro, MARVA. ml6 13:34 Liver Profile Sent. ml6 13:35 -Blood Culture Sent. ml6 13:35 B-Type Natiuretic Peptide Sent. ml6 13:35 Basic Metabolic Profile Sent. ml6 13:35 CBC with Diff Sent. ml6 13:35 ETOH Sent. ml6 13:35 Cardiac Injury Profile Sent. ml6 13:35 Troponin Sent. ml6 13:35 BLOOD CULTURES Sent. ml6 13:45 Chest, 2 View (pa\E\lat) Returned. EDMS 13:57 Patient visited by Geremias Oconnor FNP. ke 14:21 Patient visited by Geremias Oconnor FNP. ke 14:39 Patient visited by Zhang Castro RN. ml6 15:07 Chris Miranda is Referral Physician. ke 15:20 Discontinued IV bleeding controlled, pressure dressing applied, No redness/swelling at ml6 site. No procedures done that require assistance. 15:57 Patient moved to [place] [id number] 03/08 09:06 EKG-ADULT Returned. EDMS 09:34 T-Sheet-- Draft Copy was scanned into [employer] (formerly [employer]) and attached to record. gb 09:35 ECG/EKG was scanned into [employer] (formerly [employer]) and attached to record. 09:36 Trend VS was scanned into [employer] (formerly [employer]) and attached to record. gb 09:36 PCR was scanned into [employer] (formerly [employer]) and attached to record. gb Administered Medications: 03/07 13:10 Drug: Oxazepam 30 mg [oxazepam 15 mg capsule (2 caps)] Route: PO; ml6 13:10 Drug: Aspirin 324 mg [aspirin 81 mg chewable tablet (4 tabs)] Route: PO; ml6 13:10 Drug: Labetalol 10 mg [labetalol 5 mg/mL intravenous solution (2 mL)] Route: IVP; Rate: ml6 bolus; Infused Over: 2 mins; Site: left antecubital; 14:39 Drug: Labetalol 10 mg [labetalol 5 mg/mL intravenous solution (2 mL)] Route: IVP; Rate: ml6 bolus; Infused Over: 2 mins; Site: left antecubital; Attachments: 09:36 Trend VS gb Order Results: Lab Order: -Blood Culture; SPEC'M 03/07/16 13:29 Test: BLOOD CULTURE; Value: No growth after 24 hours . All specimens observed; Status: F Test: BLOOD CULTURE; Value: for 5 days. Results final at that time.; Status: F Test: BLOOD CULTURE; Value: No Growth after 48 hours. All Specimens observed; Status: F Test: BLOOD CULTURE; Value: for 7 days. Results final at that time.; Status: F Lab Order: B-Type Natiuretic Peptide; SPEC'M 03/07/16 13:29 Test: BRAIN NATRIURETIC PEPTIDE; Value: 94.7; Range: <100; Units: PG/ML; Status: F Lab Order: Basic Metabolic Profile; SPEC'M 03/07/16 13:29 Test: GLUCOSE, FASTING; Value: 90; Range: 83-110; Units: MG/DL; Status: F Test: BLOOD UREA NITROGEN; Value: 23; Range: 7-18; Abnormal: Above high normal; Units: MG/DL; Status: F Test: CREATININE FOR GFR; Value: 1.46; Range: 0.70-1.30; Abnormal: Above high normal; Units: MG/DL; Status: F Test: GLOMERULAR FILTRATION RATE; Value: 48.5; Range: >35; Status: F Test: SODIUM LEVEL; Value: 138; Range: 136-145; Units: MEQ/L; Status: F Test: POTASSIUM SERUM; Value: 3.8; Range: 3.5-5.1; Units: MEQ/L; Status: F Test: CHLORIDE LEVEL; Value: 103; Range: 98-107; Units: MEQ/L; Status: F Test: CARBON DIOXIDE LEVEL; Value: 22; Range: 21-32; Units: MEQ/L; Status: F Test: ANION GAP; Value: 13; Range: 8-16; Units: MEQ/L; Status: F Test: CALCIUM LEVEL; Value: 8.9; Range: 8.8-10.2; Units: MG/DL; Status: F Test Note: ; Units are mL/min/1.73 m2 Chronic Kidney Disease Staging per NKF: Stage I & II GFR >=60 Normal to Mildly Decreased Stage III GFR 30-59 Moderately Decreased Stage IV GFR 15-29 Severely Decreased Stage V GFR <15 Very Little GFR Left ESRD GFR <15 on DATA MINING ANALYST Lab Order: CBC with Diff; SPEC'M 03/07/16 13:29 Test: WHITE BLOOD COUNT; Value: 9.0; Range: 4.0-10.0; Units: K/mm3; Status: F Test: RED BLOOD COUNT; Value: 4.76; Range: 4.30-6.10; Units: M/mm3; Status: F Test: HEMOGLOBIN; Value: 14.3; Range: 14.0-18.0; Units: g/dl; Status: F Test: HEMATOCRIT; Value: 41.6; Range: 42.0-52.0; Abnormal: Below low normal; Units: %; Status: F Test: MEAN CORPUSCULAR VOLUME; Value: 87.3; Range: 80.0-96.0; Units: fl; Status: F Test: MEAN CORPUSCULAR HEMOGLOBIN; Value: 30.1; Range: 27.0-33.0; Units: pg; Status: F Test: MEAN CORPUSCULAR HGB CONC; Value: 34.5; Range: 32.0-36.5; Units: g/dl; Status: F Test: RED CELL DISTRIBUTION WIDTH; Value: 13.3; Range: 11.5-14.5; Units: %; Status: F Test: PLATELET COUNT, AUTOMATED; Value: 166; Range: 150-450; Units: k/mm3; Status: F Test: NEUTROPHILS %; Value: 80.5; Range: 36.0-66.0; Abnormal: Above high normal; Units: %; Status: F Test: LYMPH %; Value: 10.0; Range: 24.0-44.0; Abnormal: Below low normal; Units: %; Status: F Test: MONO %; Value: 6.6; Range: 0.0-5.0; Abnormal: Above high normal; Units: %; Status: F Test: EOS %; Value: 0.7; Range: 0.0-3.0; Units: %; Status: F Test: BASO %; Value: 0.1; Range: 0.0-1.0; Units: %; Status: F Test: LARGE UNSTAINED CELL %; Value: 2.1; Range: 0.0-4.0; Units: %; Status: F Test: NEUTROPHILS #; Value: 7.2; Range: 1.8-7.7; Units: K/mm3; Status: F Test: LYMPH #; Value: 0.9; Range: 1.5-4.5; Abnormal: Below low normal; Units: K/mm3; Status: F Test: MONO #; Value: 0.6; Range: 0.0-0.8; Units: K/mm3; Status: F Test: EOS #; Value: 0.1; Range: 0.0-0.50; Units: K/mm3; Status: F Test: BASO #; Value: 0.0; Range: 0.0-0.2; Units: K/mm3; Status: F Test: LARGE UNSTAINED CELL #; Value: 0.2; Range: 0.0-0.4; Units: K/mm3; Status: F Lab Order: Cardiac Injury Profile; [facility] 03/07/16 13: Test: CPK CREATINE PHOSPHOKINASE; Value: 45; Range: 39-308; Units: U/L; Status: F Test: CK-MB VALUE MASS; Value: 1.0; Range: 0.0-3.6; Units: NG/ML; Status: F Test: MB/CK RELATIVE INDEX; Value: 2.22; Range: < OR =4; Status: F Test Note: ; DIAGNOSIS CRITERIA MMB ng/ml Relative Index (RI) NON-AMI < or = 5 N/A [place] > 5 < or = 4 AMI > 5 > 4 Lab Order: Troponin; 03/07/16 Test: TROPONIN I; Value: < 0.02; Range: < 0.10; Units: NG/ML; Status: F Test Note: ; Troponin I Reference Interval for Histogen LOCI: 99th Percentile= 0.00-0.045 ng/ml Risk Stratification: <= 0.10 ng/ml Decreased Risk for Adverse Clinical Events. 0.10-1.50 ng/ml Increased Risk for Adverse Clinical Events. Evaluation of additional criterion and/or repeat testing in 2-6 hours is suggested to rule out myocardial damage. >= 1.50 ng/ml Indicative of Myocardial Injury. Lab Order: ETOH; SPEC'03/07/16 13:29 Test: ETHYL ALCOHOL (ETHANOL); Value: < 0.003; Range: 0.000-0.010; Units: %; Status: F Lab Order: Liver Profile; 03/07/16 13: Test: AST/SGOT; Value: 16; Range: 15-37; Units: U/L; Status: F Test: ALT/SGPT; Value: 17; Range: 12-78; Units: U/L; Status: F Test: ALKALINE PHOSPHATASE; Value: 70; Range: 45-117; Units: U/L; Status: F Test: BILIRUBIN,TOTAL; Value: 0.5; Range: 0.2-1.0; Units: MG/DL; Status: F Test: BILIRUBIN,DIRECT; Value: 0.1; Range: 0.0-0.2; Units: MG/DL; Status: F Test: TOTAL PROTEIN; Value: 7.2; Range: 6.4-8.2; Units: GM/DL; Status: F Test: ALBUMIN; Value: 3.6; Range: 3.2-5.2; Units: GM/DL; Status: F Test: ALBUMIN/GLOBULIN RATIO; Value: 1.00; Range: 1.00-1.93; Status: F Lab Order: BLOOD CULTURES; SPEC'M 03/07/16 13:29 Test: BLOOD CULTURE; Value: No growth after 24 hours . All specimens observed; Status: F Test: BLOOD CULTURE; Value: for 5 days. Results final at that time.; Status: F Test: BLOOD CULTURE; Value: No Growth after 48 hours. All Specimens observed; Status: F Test: BLOOD CULTURE; Value: for 7 days. Results final at that time.; Status: F Radiology Order: Chest, 2 View (pa\E\lat) Test: Chest, 2 View (pa\E\lat) REASON FOR EXAMINATION: Shortness of Breath; PA and lateral chest 03/07/2016; ; Indication redness of breath; ; Comparison PA and lateral chest 02/06/2009, portable chest 11/04/2014; ; Cardiac silhouette is of normal size. Mild ectasia and tortuosity of descending; thoracic aorta. Small left basilar nodular opacity of 6 mm diameter is most; compatible with a nipple shadow.; ; The bones and soft tissues are within normal limits.; ; Impression:; 1. Normal cardiomediastinal silhouette; 2. 6 mm nodular opacity in left lower lung field is likely a nipple shadow.; This can be evaluated by obtaining PA chest with nipple markers.; ; ; Signed by; Paige Morfin MD 03/07/2016 01:10 P; Radiology Order: EKG-ADULT Test: EKG-ADULT REASON FOR EXAMINATION: Shortness of Breath; Stationary ECG Study; [facility] ED; ; Test Date: 2016-03-07; Pat Name: DARIAN MAY Department:; Room: -; Gender: M Java Front End Web Developer: ct; : 1930 Requested By: GEREMIAS PEÑA; Order Number: [id number] Reading MD: Thompson Cueva; Measurements; Intervals [place]; Rate: 74 P: 79; [place]: 331 QRS: 15; QRSD: 84 T: 43; QT: 438; QTc: 489; Interpretive Statements; SINUS RHYTHM WITH FIRST DEGREE AV BLOCK WITH OCCASIONAL SUPRAVENTRICULAR; PREMATURE COMPLEXES; PROLONGED QT INTERVAL; PRWP; Electronically Signed On 03-08-2016 8:27:05 EST by Thompson Cueva; Outcome: 03/07 15:08 Discharge ordered by Provider. eriberto 15:20 Discharge Assessment: Patient awake, alert and oriented x 3. No cognitive and/or ml6 functional deficits noted. Patient verbalized understanding of disposition instructions. patient administered narcotics - no. The following High Risk Discharge criteria are identified: None. Discharged to home ambulatory, with family. Condition: stable. Discharge instructions given to patient, family, Instructed on discharge instructions, follow up and referral plans. medication usage, Demonstrated understanding of instructions, medications, Pt was receptive of discharge instructions/ teaching. Prescriptions given X 1. CT Study completed. Property :Personal belongings accompany Pt. 15:20 Patient left the ED. ml6 Signatures: Dispatcher [employer] EDMS Tressa Forrest, Pricing Consultant Unit deg Samantha Lemus RN RN [facility], Swati, Reg Reg Geremias Philippe, Gissell Morales,RN Zhang Wilson RN MARVA ml6 Mari Figueroa, PROFESSOR OF PUBLIC ADMINISTRATION PROFESSOR OF PUBLIC ADMINISTRATION ct3 Ivette Matthew dem1 Gissell Lau,RN RN Aminata [place] Lauren, PROFESSOR OF PUBLIC ADMINISTRATION PROFESSOR OF PUBLIC ADMINISTRATION ls3 Corrections: (The following items were deleted from the chart) 10:24 10:22 BP 200 / 117; Pulse 59bpm; Resp 18bpm; Pulse Ox 98% RA; Temp 99.0F Temporal; dem1 dem1 11:27 10:45 General: Appears in no apparent distress, Behavior is appropriate for age, ml6 sailaja brown 11:27 10:45 Pain: Denies pain. [facility] ml6 : 10:45 Neurological: No deficits noted. Level of Consciousness is awake, alert, Oriented ml6 to person, place, time, [facility] 10:45 Cardiovascular: No deficits noted. Capillary refill < 3 seconds is brisk in ml6 bilateral fingers toes Heart tones S1 S2 present [facility] : 10:45 Respiratory: No deficits noted. Airway is patent Respiratory effort is even, ml6 unlabored, Respiratory pattern is regular, symmetrical, Breath sounds are clear bilaterally. [facility] 10:45 GI: No deficits noted. [facility] ml6 16:26 16:25 Patient left the ED. 6 ml6 Chart Complete MTDD
--- NOTE | 2016-03-12 20:21 | EDDOCDS ---
Physician Documentation [facility] Name: Chidi May Age: 86 yrs Sex: Male : 1930 Arrival Date: 03/07/2016 Time: 10:06 Bed TR8 Private MD: Disposition: 03/07/16 15:08 Discharged to Home/Self Care. Impression: Anxiety disorder due to known physiological condition. - Condition is Stable. - Discharge Instructions: Alcohol Abuse and Nutrition, Panic Attacks, [id number]. - Prescriptions for oxazepam 30 mg Oral capsule - take 1 capsule by ORAL route 3 times per day; 20 capsule. - Medication Reconciliation, Local Pharmacy Hours form. - Follow up: Chris Miranda; When: 4 - 5 days; Reason: Recheck today's complaints, Continuance of care. - Problem is an acute exacerbation. - Symptoms have improved. Historical: - Allergies: Morphine (Vomit); - Home Meds: 1. methylphenidate 5 mg Oral tab daily (Last dose: 03/06/2016) 2. Synthroid 50 mcg Oral tab 1 tab once daily (Last dose: 03/06/2016) 3. losartan 50 mg oral tab 1 tab once daily (Last dose: 03/06/2016) 4. simvastatin 20 mg Oral tab 1 tab once daily (Last dose: 03/06/2016) 5. pantoprazole 40 mg oral TbEC 1 tab once daily (Last dose: 03/06/2016) 6. duloxetine 60 mg Oral cpDR 1 cap once daily (Last dose: 03/06/2016) 7. levetiracetam 500 mg oral tab 2 times per day (Last dose: 03/06/2016) - PMHx: Hypercholesterolemia; Hypertension; GERD; Thyroid problem; COPD; Anxiety; Alcoholism; barin cancer; leiomyasarcoma scalp; colon cancer; cerebellar aneurysm; Subdural Hematoma; kidney disease stage 3; - PSHx: brain bleed; Craniotomy; toe nail removal; Appendectomy; - Social history: Smoking status: Patient states former smoker of tobacco. No barriers to communication noted, The patient speaks fluent Georgian, Speaks appropriately for age. - Family history: Not pertinent. - : The pt / caregiver states he / she is not on anticoagulants. Home medication list is obtained from external med list Unable to Verify Home Med List with the patient / caregiver. - Exposure Risk Screening:: None identified. Vital Signs: 03/07 10:22 BP 200 / 117; Pulse 59; Resp 18; Temp 99.0(TE); Pulse Ox 98% on R/A; Weight 71.67 kg / dem1 158.01 lbs; 10:28 BP 190 / 88 RA Sitting (man/); srm 10:46 BP 178 / 63 (auto/); js13 10:46 Pulse 66 MON; Resp 16; Pulse Ox 98% on R/A; Pain 0/10; js13 11:01 BP 180 / 84 (auto/); js13 11:01 Pulse 66 MON; Resp 16; Pulse Ox 96% on R/A; js13 11:16 BP 179 / 78 (auto/); js13 11:16 Pulse 64 MON; Resp 16; Pulse Ox 96% on R/A; js13 12:30 ml6 13:30 BP 177 / 98; Pulse 65; Resp 18; Pulse Ox 98% on R/A; Pain 0/10; ml6 14:48 BP 160 / 74; Pulse 65; Resp 18; Pulse Ox 98% on R/A; ml6 15:20 BP 155 / 84; Pulse 62; Resp 18; Temp 98.3(O); Pulse Ox 98% on R/A; Pain 0/10; ml6 12:30 patient keeps taking off bp cuff, attempts made to get bp ml6 MDM: 12:29 -Blood Culture (Adults Only), peripheral from different site, or from device/port/PICC ke etc. if present ordered. 12:29 Senior Information Security Engineer/Pulse Ox/q 15 min VS ordered. ke 12:29 IV Saline Lock ordered. ke 12:29 Oxygen at 4L/Min NC or Home dosage ordered. ke 12:29 Rhythm Strip to chart ordered. ke 12:29 Oxazepam 30 mg PO once ordered. ke 12:30 B-Type Natiuretic Peptide Ordered. EDMS 12:30 Basic Metabolic Profile Ordered. EDMS 12:30 CBC with Diff Ordered. EDMS 12:30 Cardiac Injury Profile Ordered. EDMS 12:30 Troponin Ordered. EDMS 12:30 ETOH Ordered. EDMS 12:30 Liver Profile Ordered. EDMS 12:30 -Blood Culture Ordered. EDMS 12:30 Aspirin Chewable Tablet 324 mg PO once ordered. ke 12:30 Labetalol 10 mg IVP at bolus once over 2 mins ordered. ke 12:31 Chest, 2 View (pa\E\lat) Ordered. EDMS 12:31 ECG WITH READING ER PHYS+CARDIAG ordered. EDMS 12:38 -Blood Culture (Adults Only), peripheral from different site, or from device/port/PICC deg etc. if present complete. 12:39 BLOOD CULTURES Ordered. EDMS 13:03 [facility] Payment Agreement was scanned into [employer] and attached to record. jp5 13:03 Financial registration complete. jp5 13:45 Keppra (short red top tube) Ordered. EDMS 14:04 Basic Metabolic Profile Reviewed. ke 14:04 CBC with Diff Reviewed. ke 14:04 Troponin Reviewed. ke 14:04 ETOH Reviewed. ke 14:04 Liver Profile Reviewed. ke 14:04 Chest, 2 View (pa\E\lat) Reviewed. ke 14:06 Labetalol 10 mg IVP at bolus once over 2 mins ordered. ke 14:22 Basic Metabolic Profile Reviewed. ke 14:22 Cardiac Injury Profile Reviewed. ke 14:22 Troponin Reviewed. ke 14:22 ETOH Reviewed. ke 14:22 Liver Profile Reviewed. ke 14:37 B-Type Natiuretic Peptide Reviewed. ke 03/08 09:34 T-Sheet-- Draft Copy was scanned into [employer] and attached to record. gb 09:35 ECG/EKG was scanned into [employer] and attached to record. gb 09:36 Trend VS was scanned into [employer] and attached to record. gb 09:36 PCR was scanned into [employer] and attached to record. gb Administered Medications: 03/07 13:10 Drug: Oxazepam 30 mg [oxazepam 15 mg capsule (2 caps)] Route: PO; ml6 13:10 Drug: Aspirin 324 mg [aspirin 81 mg chewable tablet (4 tabs)] Route: PO; ml6 13:10 Drug: Labetalol 10 mg [labetalol 5 mg/mL intravenous solution (2 mL)] Route: IVP; Rate: ml6 bolus; Infused Over: 2 mins; Site: left antecubital; 14:39 Drug: Labetalol 10 mg [labetalol 5 mg/mL intravenous solution (2 mL)] Route: IVP; Rate: ml6 bolus; Infused Over: 2 mins; Site: left antecubital; Addendum: 03/12/2016 20:19 Radiology Callback: Radiology results faxed to primary care physician/provider. dr gracy miranda faxed formal report of cxr for fu mlg. Signatures: Dispatcher [employer] EDObinna Perla MD MD ml Murray, Denise, Cos[employer] Salesperson Unit deg Samantha Lemus, RN RN [facility] Margarita, Swati, Reg Reg gb Geremias Oconnor, DATA SECURITY ANALYST DATA SECURITY ANALYST Zhang De La Vega, RN RN ml6 Aminata Taylor jp5 The chart was reviewed and I authenticate all verbal orders and agree with the evaluation and treatment provided.Attachments: 03/07 13:03 [facility] Payment Agreement jp5 03/08 09:34 T-Sheet-- Draft Copy 09:35 ECG/EKG MTDD
--- NOTE | 2016-03-12 20:21 | EDDOCDS ---
Nurse's Notes [facility] Name: Darian May Age: 86 yrs Sex: Male : 1930 Arrival Date: 03/07/2016 Time: 10:06 Bed TR8 Private MD: Diagnosis: Anxiety disorder due to known physiological condition Presentation: 03/07 10:10 Presenting complaint: EMS states: INITIAL CALL WAS FOR DIFFICULTY BREATHING OXYGEN EVEN srm THOUGH SATS WERE IN HIGH 90'S. FEELING WEAK. HAVING ANXIETY. The last date and time the patient was known to be well was was at an unknown time on an unknown date. No acute neurological deficit is noted. The patients blood glucose was checked before arriving to the hospital and was found to be normal. Adult Sepsis Screening: The patient does not have new or worsening altered mentation. Suicide/Homicide risk assessment- the patient denies having any suicidal and/or homicidal ideations and does not present with any other emotional, behavioral or mental health complaints. Status: Patient is not a child and family services specialist or dependent. Transition of care: patient was not received from another setting of care. 10:10 Acuity: AMEE Level 3 srm 10:10 Method Of Arrival: Ambulance srm 10:22 Adult Sepsis Screening: Patient's respiratory rate is less than 22. Systolic blood srm pressure is greater than 100. Patient has a qSOFA score of 0- Negative Sepsis Screen. Care prior to arrival: IV initiated. Saline lock initiated. Glucose check. 18 g LAC fsbs 106. Triage Assessment: 10:22 The onset of the patients symptoms was at an unknown time. General: Appears in no srm apparent distress, Behavior is appropriate for age, cooperative. Pain: Denies pain. Neurological: Level of Consciousness is awake, alert, Oriented to person, place, time, Moves all extremities. Full function Speech is normal, slow to answer questions but normal for pt after craniotomy. Facial symmetry appears normal, Reports weakness. Historical: - Allergies: Morphine (Vomit); - Home Meds: 1. methylphenidate 5 mg Oral tab daily (Last dose: 03/06/2016) 2. Synthroid 50 mcg Oral tab 1 tab once daily (Last dose: 03/06/2016) 3. losartan 50 mg oral tab 1 tab once daily (Last dose: 03/06/2016) 4. simvastatin 20 mg Oral tab 1 tab once daily (Last dose: 03/06/2016) 5. pantoprazole 40 mg oral TbEC 1 tab once daily (Last dose: 03/06/2016) 6. duloxetine 60 mg Oral cpDR 1 cap once daily (Last dose: 03/06/2016) 7. levetiracetam 500 mg oral tab 2 times per day (Last dose: 03/06/2016) - PMHx: Hypercholesterolemia; Hypertension; GERD; Thyroid problem; COPD; Anxiety; Alcoholism; barin cancer; leiomyasarcoma scalp; colon cancer; cerebellar aneurysm; Subdural Hematoma; kidney disease stage 3; - PSHx: brain bleed; Craniotomy; toe nail removal; Appendectomy; - Social history: Smoking status: Patient states former smoker of tobacco. No barriers to communication noted, The patient speaks fluent Hebrew, Speaks appropriately for age. - Family history: Not pertinent. - : The pt / caregiver states he / she is not on anticoagulants. Home medication list is obtained from external med list Unable to Verify Home Med List with the patient / caregiver. - Exposure Risk Screening:: None identified. Screenin:22 Screening information is obtained from the patient. Fall risk: No risks identified. js13 Assistance ADL's: requires no assistance with activities of daily living. Abuse/DV Screen: The patient / caregiver reports he/she is: not in a situation that causes fear, pain or injury. Nutritional screening: No deficits noted. Advance Directives: Currently, there is no health care proxy. home support is adequate. Assessment: 10:29 General: Appears in no apparent distress, Behavior is appropriate for age, cooperative, srm becomes anxious anD tearful when talking about son and grandson who are in [place] and in the hospital but he cant remember why. Respiratory: Airway is patent Respiratory effort is even, unlabored, Breath sounds are clear bilaterally. GI: Abdomen is non- distended Bowel sounds present X 4 quads. Abd is soft and non tender X 4 quads. Derm: No deficits noted. 10:45 General: Appears in no apparent distress, Behavior is appropriate for age, cooperative. ml6 Pain: Denies pain. Neurological: No deficits noted. Level of Consciousness is awake, alert, Oriented to person, place, time. Cardiovascular: No deficits noted. Capillary refill < 3 seconds is brisk in bilateral fingers toes Heart tones S1 S2 present. Respiratory: No deficits noted. Airway is patent Respiratory effort is even, unlabored, Respiratory pattern is regular, symmetrical, Breath sounds are clear bilaterally. GI: No deficits noted. 11:23 General: patient very anxious states that he was trying to call son and grandson in ml6 [place] and was having trouble making the call, states he then began feeling SOB. 12:30 Reassessment: patient anxious shaking, states that he needs to get ahold of his son. ml6 Daughter in to see patient, states that patient drinks heavily 1L whiskey per day, states no ETOH since last evening. 13:30 Reassessment: Patient appears in no apparent distress at this time. Patient denies pain ml6 at this time. Patient states feeling better. Patient states symptoms have improved. 14:30 Reassessment: Patient appears in no apparent distress at this time. Patient denies pain ml6 at this time. Patient states feeling better. Patient states symptoms have improved. 15:20 General: Appears in no apparent distress, comfortable, Behavior is appropriate for age, ml6 cooperative. Pain: Denies pain. Neurological: No deficits noted. Level of Consciousness is awake, alert, Oriented to person, place, time. Cardiovascular: No deficits noted. Capillary refill < 3 seconds is brisk in bilateral fingers toes Respiratory: No deficits noted. Airway is patent Respiratory effort is even, unlabored, Respiratory pattern is regular, symmetrical. Vital Signs: 10:22 BP 200 / 117; Pulse 59; Resp 18; Temp 99.0(TE); Pulse Ox 98% on R/A; Weight 71.67 kg; dem1 10:28 BP 190 / 88 RA Sitting (man/); [facility] 10:46 BP 178 / 63 (auto/); js13 10:46 Pulse 66 MON; Resp 16; Pulse Ox 98% on R/A; Pain 0/10; js13 11:01 BP 180 / 84 (auto/); js13 11:01 Pulse 66 MON; Resp 16; Pulse Ox 96% on R/A; js13 11:16 BP 179 / 78 (auto/); js13 11:16 Pulse 64 MON; Resp 16; Pulse Ox 96% on R/A; js13 12:30 ml6 13:30 BP 177 / 98; Pulse 65; Resp 18; Pulse Ox 98% on R/A; Pain 0/10; ml6 14:48 BP 160 / 74; Pulse 65; Resp 18; Pulse Ox 98% on R/A; ml6 15:20 BP 155 / 84; Pulse 62; Resp 18; Temp 98.3(O); Pulse Ox 98% on R/A; Pain 0/10; ml6 12:30 patient keeps taking off bp cuff, attempts made to get bp ml6 Vitals: 10:22 Log In Time N/A - ambulance arrival. dem1 10:28 Glucose Measurement D-stick done by EMS. [facility] ED Course: 10:07 Patient visited by Tressa Forrest, Manager Books. deg 10:07 Patient moved to Waiting deg 10:08 Patient moved to 11 deg 10:12 Triage Initiated srm 10:28 The patient / caregiver is instructed regarding the plan of care and ED course. Patient srm has correct armband on for positive identification. Placed in gown. Bed in low position. Call light in reach. Side rails up X2. ekg monitor tech on. Pulse ox on. NIBP on. 10:28 Maintain field IV. Dressing intact. Good blood return noted. Site clean & dry. srm 10:31 Patient visited by Samantha Lemus, MARVA. srm 11:04 Patient visited by Zhang Castro, MARVA. ml6 11:30 Patient visited by Zhang Castro, MARVA. ml6 12:08 Patient visited by Niurka Guzamn PCA. ls3 12:16 Geremias Oconnor FNP is PHCP. ke 12:16 Patient visited by Geremias Oconnor FNP. ke 12:16 Patient visited by Geremias Oconnor FNP. ke 12:49 Patient visited by Geremias Oconnor FNP. ke 13:03 [facility] Payment Agreement was scanned into DIIME and attached to record. jp5 13:07 EKG done. (by ED staff). Reviewed by Geremias PEÑA. ct3 13:10 Patient visited by Mari Figueroa PCA. ct3 13:34 Patient visited by Zhang Castro, MARVA. ml6 13:34 Liver Profile Sent. ml6 13:35 -Blood Culture Sent. ml6 13:35 B-Type Natiuretic Peptide Sent. ml6 13:35 Basic Metabolic Profile Sent. ml6 13:35 CBC with Diff Sent. ml6 13:35 ETOH Sent. ml6 13:35 Cardiac Injury Profile Sent. ml6 13:35 Troponin Sent. ml6 13:35 BLOOD CULTURES Sent. ml6 13:45 Chest, 2 View (pa\E\lat) Returned. EDMS 13:57 Patient visited by Geremias Oconnor FNP. ke 14:21 Patient visited by Geremias Oconnor FNP. ke 14:39 Patient visited by Zhang Castro RN. ml6 15:07 Chris Miranda is Referral Physician. ke 15:20 Discontinued IV bleeding controlled, pressure dressing applied, No redness/swelling at ml6 site. No procedures done that require assistance. 15:57 Patient moved to [place] [id number] 03/08 09:06 EKG-ADULT Returned. EDMS 09:34 T-Sheet-- Draft Copy was scanned into DIIME and attached to record. gb 09:35 ECG/EKG was scanned into DIIME and attached to record. 09:36 Trend VS was scanned into DIIME and attached to record. gb 09:36 PCR was scanned into DIIME and attached to record. gb Administered Medications: 03/07 13:10 Drug: Oxazepam 30 mg [oxazepam 15 mg capsule (2 caps)] Route: PO; ml6 13:10 Drug: Aspirin 324 mg [aspirin 81 mg chewable tablet (4 tabs)] Route: PO; ml6 13:10 Drug: Labetalol 10 mg [labetalol 5 mg/mL intravenous solution (2 mL)] Route: IVP; Rate: ml6 bolus; Infused Over: 2 mins; Site: left antecubital; 14:39 Drug: Labetalol 10 mg [labetalol 5 mg/mL intravenous solution (2 mL)] Route: IVP; Rate: ml6 bolus; Infused Over: 2 mins; Site: left antecubital; Attachments: 09:36 Trend VS gb Order Results: Lab Order: -Blood Culture; SPEC'M 03/07/16 13:29 Test: BLOOD CULTURE; Value: No growth after 72 hours . All specimens observed; Status: F Test: BLOOD CULTURE; Value: for 5 days. Results final at that time.; Status: F Test: BLOOD CULTURE; Status: F Test: BLOOD CULTURE; Value: No growth after 48 hours . All specimens observed; Status: F Test: BLOOD CULTURE; Value: for 5 days. Results final at that time.; Status: F Test: BLOOD CULTURE; Status: F Test: BLOOD CULTURE; Value: No growth after 24 hours . All specimens observed; Status: F Test: BLOOD CULTURE; Value: for 5 days. Results final at that time.; Status: F Test: BLOOD CULTURE; Value: NO GROWTH AFTER 5 DAYS; Status: F Lab Order: B-Type Natiuretic Peptide; SPEC'M 03/07/16 13:29 Test: BRAIN NATRIURETIC PEPTIDE; Value: 94.7; Range: <100; Units: PG/ML; Status: F Lab Order: Basic Metabolic Profile; SPEC'M 03/07/16 13:29 Test: GLUCOSE, FASTING; Value: 90; Range: 83-110; Units: MG/DL; Status: F Test: BLOOD UREA NITROGEN; Value: 23; Range: 7-18; Abnormal: Above high normal; Units: MG/DL; Status: F Test: CREATININE FOR GFR; Value: 1.46; Range: 0.70-1.30; Abnormal: Above high normal; Units: MG/DL; Status: F Test: GLOMERULAR FILTRATION RATE; Value: 48.5; Range: >35; Status: F Test: SODIUM LEVEL; Value: 138; Range: 136-145; Units: MEQ/L; Status: F Test: POTASSIUM SERUM; Value: 3.8; Range: 3.5-5.1; Units: MEQ/L; Status: F Test: CHLORIDE LEVEL; Value: 103; Range: 98-107; Units: MEQ/L; Status: F Test: CARBON DIOXIDE LEVEL; Value: 22; Range: 21-32; Units: MEQ/L; Status: F Test: ANION GAP; Value: 13; Range: 8-16; Units: MEQ/L; Status: F Test: CALCIUM LEVEL; Value: 8.9; Range: 8.8-10.2; Units: MG/DL; Status: F Test Note: ; Units are mL/min/1.73 m2 Chronic Kidney Disease Staging per NKF: Stage I & II GFR >=60 Normal to Mildly Decreased Stage III GFR 30-59 Moderately Decreased Stage IV GFR 15-29 Severely Decreased Stage V GFR <15 Very Little GFR Left ESRD GFR <15 on FOOT CUTTER Lab Order: CBC with Diff; SPEC'M 03/07/16 13:29 Test: WHITE BLOOD COUNT; Value: 9.0; Range: 4.0-10.0; Units: K/mm3; Status: F Test: RED BLOOD COUNT; Value: 4.76; Range: 4.30-6.10; Units: M/mm3; Status: F Test: HEMOGLOBIN; Value: 14.3; Range: 14.0-18.0; Units: g/dl; Status: F Test: HEMATOCRIT; Value: 41.6; Range: 42.0-52.0; Abnormal: Below low normal; Units: %; Status: F Test: MEAN CORPUSCULAR VOLUME; Value: 87.3; Range: 80.0-96.0; Units: fl; Status: F Test: MEAN CORPUSCULAR HEMOGLOBIN; Value: 30.1; Range: 27.0-33.0; Units: pg; Status: F Test: MEAN CORPUSCULAR HGB CONC; Value: 34.5; Range: 32.0-36.5; Units: g/dl; Status: F Test: RED CELL DISTRIBUTION WIDTH; Value: 13.3; Range: 11.5-14.5; Units: %; Status: F Test: PLATELET COUNT, AUTOMATED; Value: 166; Range: 150-450; Units: k/mm3; Status: F Test: NEUTROPHILS %; Value: 80.5; Range: 36.0-66.0; Abnormal: Above high normal; Units: %; Status: F Test: LYMPH %; Value: 10.0; Range: 24.0-44.0; Abnormal: Below low normal; Units: %; Status: F Test: MONO %; Value: 6.6; Range: 0.0-5.0; Abnormal: Above high normal; Units: %; Status: F Test: EOS %; Value: 0.7; Range: 0.0-3.0; Units: %; Status: F Test: BASO %; Value: 0.1; Range: 0.0-1.0; Units: %; Status: F Test: LARGE UNSTAINED CELL %; Value: 2.1; Range: 0.0-4.0; Units: %; Status: F Test: NEUTROPHILS #; Value: 7.2; Range: 1.8-7.7; Units: K/mm3; Status: F Test: LYMPH #; Value: 0.9; Range: 1.5-4.5; Abnormal: Below low normal; Units: K/mm3; Status: F Test: MONO #; Value: 0.6; Range: 0.0-0.8; Units: K/mm3; Status: F Test: EOS #; Value: 0.1; Range: 0.0-0.50; Units: K/mm3; Status: F Test: BASO #; Value: 0.0; Range: 0.0-0.2; Units: K/mm3; Status: F Test: LARGE UNSTAINED CELL #; Value: 0.2; Range: 0.0-0.4; Units: K/mm3; Status: F Lab Order: Cardiac Injury Profile; [facility]' 03/07/16 13:29 Test: CPK CREATINE PHOSPHOKINASE; Value: 45; Range: 39-308; Units: U/L; Status: F Test: CK-MB VALUE MASS; Value: 1.0; Range: 0.0-3.6; Units: NG/ML; Status: F Test: MB/CK RELATIVE INDEX; Value: 2.22; Range: < OR =4; Status: F Test Note: ; DIAGNOSIS CRITERIA MMB ng/ml Relative Index (RI) NON-AMI < or = 5 N/A CO[place] ZONE > 5 < or = 4 AMI > 5 > 4 Lab Order: Troponin; [facility]' 03/07/16 13:29 Test: TROPONIN I; Value: < 0.02; Range: < 0.10; Units: NG/ML; Status: F Test Note: ; Troponin I Reference Interval for [employer] LOCI: 99th Percentile= 0.00-0.045 ng/ml Risk Stratification: <= 0.10 ng/ml Decreased Risk for Adverse Clinical Events. 0.10-1.50 ng/ml Increased Risk for Adverse Clinical Events. Evaluation of additional criterion and/or repeat testing in 2-6 hours is suggested to rule out myocardial damage. >= 1.50 ng/ml Indicative of Myocardial Injury. Lab Order: ETOH; SPEC' 03/07/16 13:29 Test: ETHYL ALCOHOL (ETHANOL); Value: < 0.003; Range: 0.000-0.010; Units: %; Status: F Lab Order: Liver Profile; SPEC'M 03/07/16 13:29 Test: AST/SGOT; Value: 16; Range: 15-37; Units: U/L; Status: F Test: ALT/SGPT; Value: 17; Range: 12-78; Units: U/L; Status: F Test: ALKALINE PHOSPHATASE; Value: 70; Range: 45-117; Units: U/L; Status: F Test: BILIRUBIN,TOTAL; Value: 0.5; Range: 0.2-1.0; Units: MG/DL; Status: F Test: BILIRUBIN,DIRECT; Value: 0.1; Range: 0.0-0.2; Units: MG/DL; Status: F Test: TOTAL PROTEIN; Value: 7.2; Range: 6.4-8.2; Units: GM/DL; Status: F Test: ALBUMIN; Value: 3.6; Range: 3.2-5.2; Units: GM/DL; Status: F Test: ALBUMIN/GLOBULIN RATIO; Value: 1.00; Range: 1.00-1.93; Status: F Lab Order: BLOOD CULTURES; SPEC'M 03/07/16 13:29 Test: BLOOD CULTURE; Value: No growth after 72 hours . All specimens observed; Status: F Test: BLOOD CULTURE; Value: for 5 days. Results final at that time.; Status: F Test: BLOOD CULTURE; Status: F Test: BLOOD CULTURE; Value: No growth after 48 hours . All specimens observed; Status: F Test: BLOOD CULTURE; Value: for 5 days. Results final at that time.; Status: F Test: BLOOD CULTURE; Status: F Test: BLOOD CULTURE; Value: No growth after 24 hours . All specimens observed; Status: F Test: BLOOD CULTURE; Value: for 5 days. Results final at that time.; Status: F Test: BLOOD CULTURE; Value: NO GROWTH AFTER 5 DAYS; Status: F Lab Order: Keppra (short red top tube); SPEC'M 03/07/16 13:28 Test: LEVETIRACETAM (KEPPRA); Value: None Detected; Range: 10.0-40.0; Units: ug/mL; Status: F Test Note: ; Performed at: [address] [id number] Garment Cutter: Yoseph Brunson MD, Phone: [phone] Radiology Order: Chest, 2 View (pa\E\lat) Test: Chest, 2 View (pa\E\lat) REASON FOR EXAMINATION: Shortness of Breath; PA and lateral chest 03/07/2016; ; Indication redness of breath; ; Comparison PA and lateral chest 02/06/2009, portable chest 11/04/2014; ; Cardiac silhouette is of normal size. Mild ectasia and tortuosity of descending; thoracic aorta. Small left basilar nodular opacity of 6 mm diameter is most; compatible with a nipple shadow.; ; The bones and soft tissues are within normal limits.; ; Impression:; 1. Normal cardiomediastinal silhouette; 2. 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 15:20 Discharge Assessment: Patient awake, alert and oriented x 3. No cognitive and/or ml6 functional deficits noted. Patient verbalized understanding of disposition instructions. patient administered narcotics - no. The following High Risk Discharge criteria are identified: None. Discharged to home ambulatory, with family. Condition: stable. Discharge instructions given to patient, family, Instructed on discharge instructions, follow up and referral plans. medication usage, Demonstrated understanding of instructions, medications, Pt was receptive of discharge instructions/ teaching. Prescriptions given X 1. CT Study completed. Property :Personal belongings accompany Pt. 15:20 Patient left the ED. ml6 Signatures: Dispatcher [employer] EDMS Tressa Forrest, Manager Books Unit deg Samantha Lemus, RN RN srm Barnhardt, Swati, Reg Reg gb Geremias Oconnor, AIR BRUSH DECORATOR AIR BRUSH DECORATOR Gissell Pendleton RN RN jo3 Lowe, Matthew, RN RN ml6 Mari Figueroa, NUCLEAR CRITICALITY SAFETY ENGINEER NUCLEAR CRITICALITY SAFETY ENGINEER ct3 Ivette Matthew dem1 Gissell Lau,RN RN js13 Aminata Taylor jp5 Niurka Guzman, NUCLEAR CRITICALITY SAFETY ENGINEER NUCLEAR CRITICALITY SAFETY ENGINEER ls3 Corrections: (The following items were deleted from the chart) 10:24 10:22 BP 200 / 117; Pulse 59bpm; Resp 18bpm; Pulse Ox 98% RA; Temp 99.0F Temporal; dem1 dem1 11: 10:45 General: Appears in no apparent distress, Behavior is appropriate for age, ml6 cooperative, rust : 10:45 Pain: Denies pain. rust ml6 11: 10:45 Neurological: No deficits noted. Level of Consciousness is awake, alert, Oriented [facility] to person, place, time, rust : 10:45 Cardiovascular: No deficits noted. Capillary refill < 3 seconds is brisk in ml6 bilateral fingers toes Heart tones S1 S2 present rust : 10:45 Respiratory: No deficits noted. Airway is patent Respiratory effort is even, ml6 unlabored, Respiratory pattern is regular, symmetrical, Breath sounds are clear bilaterally. rust 10:45 GI: No deficits noted. rust ml6 16:26 16:25 Patient left the ED. ml6 ml6 MTDD
--- NOTE | 2016-03-12 20:21 | EDDOCDS ---
Physician Documentation [facility] Name: Chidi May Age: 86 yrs Sex: Male : 1930 Arrival Date: 03/07/2016 Time: 10:06 Bed TR8 Private MD: Disposition: 03/07/16 15:08 Discharged to Home/Self Care. Impression: Anxiety disorder due to known physiological condition. - Condition is Stable. - Discharge Instructions: Alcohol Abuse and Nutrition, Panic Attacks, [id number]. - Prescriptions for oxazepam 30 mg Oral capsule - take 1 capsule by ORAL route 3 times per day; 20 capsule. - Medication Reconciliation, Local Pharmacy Hours form. - Follow up: Chris Miranda; When: 4 - 5 days; Reason: Recheck today's complaints, Continuance of care. - Problem is an acute exacerbation. - Symptoms have improved. Historical: - Allergies: Morphine (Vomit); - Home Meds: 1. methylphenidate 5 mg Oral tab daily (Last dose: 03/06/2016) 2. Synthroid 50 mcg Oral tab 1 tab once daily (Last dose: 03/06/2016) 3. losartan 50 mg oral tab 1 tab once daily (Last dose: 03/06/2016) 4. simvastatin 20 mg Oral tab 1 tab once daily (Last dose: 03/06/2016) 5. pantoprazole 40 mg oral TbEC 1 tab once daily (Last dose: 03/06/2016) 6. duloxetine 60 mg Oral cpDR 1 cap once daily (Last dose: 03/06/2016) 7. levetiracetam 500 mg oral tab 2 times per day (Last dose: 03/06/2016) - PMHx: Hypercholesterolemia; Hypertension; GERD; Thyroid problem; COPD; Anxiety; Alcoholism; barin cancer; leiomyasarcoma scalp; colon cancer; cerebellar aneurysm; Subdural Hematoma; kidney disease stage 3; - PSHx: brain bleed; Craniotomy; toe nail removal; Appendectomy; - Social history: Smoking status: Patient states former smoker of tobacco. No barriers to communication noted, The patient speaks fluent Slovak, Speaks appropriately for age. - Family history: Not pertinent. - : The pt / caregiver states he / she is not on anticoagulants. Home medication list is obtained from external med list Unable to Verify Home Med List with the patient / caregiver. - Exposure Risk Screening:: None identified. Vital Signs: 03/07 10:22 BP 200 / 117; Pulse 59; Resp 18; Temp 99.0(TE); Pulse Ox 98% on R/A; Weight 71.67 kg / dem1 158.01 lbs; 10:28 BP 190 / 88 RA Sitting (man/); srm 10:46 BP 178 / 63 (auto/); js13 10:46 Pulse 66 MON; Resp 16; Pulse Ox 98% on R/A; Pain 0/10; js13 11:01 BP 180 / 84 (auto/); js13 11:01 Pulse 66 MON; Resp 16; Pulse Ox 96% on R/A; js13 11:16 BP 179 / 78 (auto/); js13 11:16 Pulse 64 MON; Resp 16; Pulse Ox 96% on R/A; js13 12:30 ml6 13:30 BP 177 / 98; Pulse 65; Resp 18; Pulse Ox 98% on R/A; Pain 0/10; ml6 14:48 BP 160 / 74; Pulse 65; Resp 18; Pulse Ox 98% on R/A; ml6 15:20 BP 155 / 84; Pulse 62; Resp 18; Temp 98.3(O); Pulse Ox 98% on R/A; Pain 0/10; ml6 12:30 patient keeps taking off bp cuff, attempts made to get bp ml6 MDM: 12:29 -Blood Culture (Adults Only), peripheral from different site, or from device/port/PICC ke etc. if present ordered. 12:29 Uranium Processing Supervisor/Pulse Ox/q 15 min VS ordered. ke 12:29 IV Saline Lock ordered. ke 12:29 Oxygen at 4L/Min NC or Home dosage ordered. ke 12:29 Rhythm Strip to chart ordered. ke 12:29 Oxazepam 30 mg PO once ordered. ke 12:30 B-Type Natiuretic Peptide Ordered. EDMS 12:30 Basic Metabolic Profile Ordered. EDMS 12:30 CBC with Diff Ordered. EDMS 12:30 Cardiac Injury Profile Ordered. EDMS 12:30 Troponin Ordered. EDMS 12:30 ETOH Ordered. EDMS 12:30 Liver Profile Ordered. EDMS 12:30 -Blood Culture Ordered. EDMS 12:30 Aspirin Chewable Tablet 324 mg PO once ordered. ke 12:30 Labetalol 10 mg IVP at bolus once over 2 mins ordered. ke 12:31 Chest, 2 View (pa\E\lat) Ordered. EDMS 12:31 ECG WITH READING ER PHYS+CARDIAG ordered. EDMS 12:38 -Blood Culture (Adults Only), peripheral from different site, or from device/port/PICC deg etc. if present complete. 12:39 BLOOD CULTURES Ordered. EDMS 13:03 [facility] Payment Agreement was scanned into [employer] and attached to record. jp5 13:03 Financial registration complete. jp5 13:45 Keppra (short red top tube) Ordered. EDMS 14:04 Basic Metabolic Profile Reviewed. ke 14:04 CBC with Diff Reviewed. ke 14:04 Troponin Reviewed. ke 14:04 ETOH Reviewed. ke 14:04 Liver Profile Reviewed. ke 14:04 Chest, 2 View (pa\E\lat) Reviewed. ke 14:06 Labetalol 10 mg IVP at bolus once over 2 mins ordered. ke 14:22 Basic Metabolic Profile Reviewed. ke 14:22 Cardiac Injury Profile Reviewed. ke 14:22 Troponin Reviewed. ke 14:22 ETOH Reviewed. ke 14:22 Liver Profile Reviewed. ke 14:37 B-Type Natiuretic Peptide Reviewed. ke 03/08 09:34 T-Sheet-- Draft Copy was scanned into [employer] and attached to record. gb 09:35 ECG/EKG was scanned into [employer] and attached to record. gb 09:36 Trend VS was scanned into [employer] and attached to record. gb 09:36 PCR was scanned into [employer] and attached to record. gb Administered Medications: 03/07 13:10 Drug: Oxazepam 30 mg [oxazepam 15 mg capsule (2 caps)] Route: PO; ml6 13:10 Drug: Aspirin 324 mg [aspirin 81 mg chewable tablet (4 tabs)] Route: PO; ml6 13:10 Drug: Labetalol 10 mg [labetalol 5 mg/mL intravenous solution (2 mL)] Route: IVP; Rate: ml6 bolus; Infused Over: 2 mins; Site: left antecubital; 14:39 Drug: Labetalol 10 mg [labetalol 5 mg/mL intravenous solution (2 mL)] Route: IVP; Rate: ml6 bolus; Infused Over: 2 mins; Site: left antecubital; Addendum: 03/12/2016 20:19 Radiology Callback: Radiology results faxed to primary care physician/provider. dr gracy miranda faxed formal report of cxr for fu mlg. Signatures: Dispatcher [employer] EDObinna Perla MD MD ml Murray, Denise, Distribution Clerk Unit deg Samantha Lemus, RN RN [facility] Margarita, Swati, Reg Reg gb Geremias Oconnor, NITROCELLULOSE OPERATOR NITROCELLULOSE OPERATOR Zhang De La Vega, RN RN ml6 Aminata Taylor jp5 The chart was reviewed and I authenticate all verbal orders and agree with the evaluation and treatment provided.Attachments: 03/07 13:03 [facility] Payment Agreement jp5 03/08 09:34 T-Sheet-- Draft Copy 09:35 ECG/EKG MTDD
--- NOTE | 2016-03-12 20:22 | EDDOCDS ---
Nurse's Notes [facility] Name: Darian May Age: 86 yrs Sex: Male : 1930 Arrival Date: 03/07/2016 Time: 10:06 Bed TR8 Private MD: Diagnosis: Anxiety disorder due to known physiological condition Presentation: 03/07 10:10 Presenting complaint: EMS states: INITIAL CALL WAS FOR DIFFICULTY BREATHING OXYGEN EVEN srm THOUGH SATS WERE IN HIGH 90'S. FEELING WEAK. HAVING ANXIETY. The last date and time the patient was known to be well was was at an unknown time on an unknown date. No acute neurological deficit is noted. The patients blood glucose was checked before arriving to the hospital and was found to be normal. Adult Sepsis Screening: The patient does not have new or worsening altered mentation. Suicide/Homicide risk assessment- the patient denies having any suicidal and/or homicidal ideations and does not present with any other emotional, behavioral or mental health complaints. 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 Transition of care: patient was not received from another setting of care. 10:10 Acuity: AMEE Level 3 srm 10:10 Method Of Arrival: Ambulance srm 10:22 Adult Sepsis Screening: Patient's respiratory rate is less than 22. Systolic blood srm pressure is greater than 100. Patient has a qSOFA score of 0- Negative Sepsis Screen. Care prior to arrival: IV initiated. Saline lock initiated. Glucose check. 18 g LAC fsbs 106. Triage Assessment: 10:22 The onset of the patients symptoms was at an unknown time. General: Appears in no srm apparent distress, Behavior is appropriate for age, cooperative. Pain: Denies pain. Neurological: Level of Consciousness is awake, alert, Oriented to person, place, time, Moves all extremities. Full function Speech is normal, slow to answer questions but normal for pt after craniotomy. Facial symmetry appears normal, Reports weakness. Historical: - Allergies: Morphine (Vomit); - Home Meds: 1. methylphenidate 5 mg Oral tab daily (Last dose: 03/06/2016) 2. Synthroid 50 mcg Oral tab 1 tab once daily (Last dose: 03/06/2016) 3. losartan 50 mg oral tab 1 tab once daily (Last dose: 03/06/2016) 4. simvastatin 20 mg Oral tab 1 tab once daily (Last dose: 03/06/2016) 5. pantoprazole 40 mg oral TbEC 1 tab once daily (Last dose: 03/06/2016) 6. duloxetine 60 mg Oral cpDR 1 cap once daily (Last dose: 03/06/2016) 7. levetiracetam 500 mg oral tab 2 times per day (Last dose: 03/06/2016) - PMHx: Hypercholesterolemia; Hypertension; GERD; Thyroid problem; COPD; Anxiety; Alcoholism; barin cancer; leiomyasarcoma scalp; colon cancer; cerebellar aneurysm; Subdural Hematoma; kidney disease stage 3; - PSHx: brain bleed; Craniotomy; toe nail removal; Appendectomy; - Social history: Smoking status: Patient states former smoker of tobacco. No barriers to communication noted, The patient speaks fluent Maori, Speaks appropriately for age. - Family history: Not pertinent. - : The pt / caregiver states he / she is not on anticoagulants. Home medication list is obtained from external med list Unable to Verify Home Med List with the patient / caregiver. - Exposure Risk Screening:: None identified. Screenin:22 Screening information is obtained from the patient. Fall risk: No risks identified. js13 Assistance ADL's: requires no assistance with activities of daily living. Abuse/DV Screen: The patient / caregiver reports he/she is: not in a situation that causes fear, pain or injury. Nutritional screening: No deficits noted. Advance Directives: Currently, there is no health care proxy. home support is adequate. Assessment: 10:29 General: Appears in no apparent distress, Behavior is appropriate for age, cooperative, srm becomes anxious anD tearful when talking about son and grandson who are in [place] and in the hospital but he cant remember why. Respiratory: Airway is patent Respiratory effort is even, unlabored, Breath sounds are clear bilaterally. GI: Abdomen is non- distended Bowel sounds present X 4 quads. Abd is soft and non tender X 4 quads. Derm: No deficits noted. 10:45 General: Appears in no apparent distress, Behavior is appropriate for age, cooperative. ml6 Pain: Denies pain. Neurological: No deficits noted. Level of Consciousness is awake, alert, Oriented to person, place, time. Cardiovascular: No deficits noted. Capillary refill < 3 seconds is brisk in bilateral fingers toes Heart tones S1 S2 present. Respiratory: No deficits noted. Airway is patent Respiratory effort is even, unlabored, Respiratory pattern is regular, symmetrical, Breath sounds are clear bilaterally. GI: No deficits noted. 11:23 General: patient very anxious states that he was trying to call son and grandson in ml6 [place] and was having trouble making the call, states he then began feeling SOB. 12:30 Reassessment: patient anxious shaking, states that he needs to get ahold of his son. ml6 Daughter in to see patient, states that patient drinks heavily 1L whiskey per day, states no ETOH since last evening. 13:30 Reassessment: Patient appears in no apparent distress at this time. Patient denies pain ml6 at this time. Patient states feeling better. Patient states symptoms have improved. 14:30 Reassessment: Patient appears in no apparent distress at this time. Patient denies pain ml6 at this time. Patient states feeling better. Patient states symptoms have improved. 15:20 General: Appears in no apparent distress, comfortable, Behavior is appropriate for age, ml6 cooperative. Pain: Denies pain. Neurological: No deficits noted. Level of Consciousness is awake, alert, Oriented to person, place, time. Cardiovascular: No deficits noted. Capillary refill < 3 seconds is brisk in bilateral fingers toes Respiratory: No deficits noted. Airway is patent Respiratory effort is even, unlabored, Respiratory pattern is regular, symmetrical. Vital Signs: 10:22 BP 200 / 117; Pulse 59; Resp 18; Temp 99.0(TE); Pulse Ox 98% on R/A; Weight 71.67 kg; dem1 10:28 BP 190 / 88 RA Sitting (man/); [facility] 10:46 BP 178 / 63 (auto/); js13 10:46 Pulse 66 MON; Resp 16; Pulse Ox 98% on R/A; Pain 0/10; js13 11:01 BP 180 / 84 (auto/); js13 11:01 Pulse 66 MON; Resp 16; Pulse Ox 96% on R/A; js13 11:16 BP 179 / 78 (auto/); js13 11:16 Pulse 64 MON; Resp 16; Pulse Ox 96% on R/A; js13 12:30 ml6 13:30 BP 177 / 98; Pulse 65; Resp 18; Pulse Ox 98% on R/A; Pain 0/10; ml6 14:48 BP 160 / 74; Pulse 65; Resp 18; Pulse Ox 98% on R/A; ml6 15:20 BP 155 / 84; Pulse 62; Resp 18; Temp 98.3(O); Pulse Ox 98% on R/A; Pain 0/10; ml6 12:30 patient keeps taking off bp cuff, attempts made to get bp ml6 Vitals: 10:22 Log In Time N/A - ambulance arrival. dem1 10:28 Glucose Measurement D-stick done by EMS. [facility] ED Course: 10:07 Patient visited by Tressa Forrest, Gallery Assistant. deg 10:07 Patient moved to Waiting deg 10:08 Patient moved to 11 deg 10:12 Triage Initiated srm 10:28 The patient / caregiver is instructed regarding the plan of care and ED course. Patient srm has correct armband on for positive identification. Placed in gown. Bed in low position. Call light in reach. Side rails up X2. title i director on. Pulse ox on. NIBP on. 10:28 Maintain field IV. Dressing intact. Good blood return noted. Site clean & dry. srm 10:31 Patient visited by Samantha Lemus, MARVA. srm 11:04 Patient visited by Zhang Castro, MARVA. ml6 11:30 Patient visited by Zhang Castro, MARVA. ml6 12:08 Patient visited by Niurka Guzman PCA. ls3 12:16 Geremias Oconnor FNP is PHCP. ke 12:16 Patient visited by Geremias Oconnor FNP. ke 12:16 Patient visited by Geremias Oconnor FNP. ke 12:49 Patient visited by Geremias Oconnor FNP. ke 13:03 ON LICENSE OF [facility] Payment Agreement was scanned into [employer] and attached to record. jp5 13:07 EKG done. (by ED staff). Reviewed by Geremias PEÑA. ct3 13:10 Patient visited by Mari Figueroa PCA. ct3 13:34 Patient visited by Zhang Castro, MARVA. ml6 13:34 Liver Profile Sent. ml6 13:35 -Blood Culture Sent. ml6 13:35 B-Type Natiuretic Peptide Sent. ml6 13:35 Basic Metabolic Profile Sent. ml6 13:35 CBC with Diff Sent. ml6 13:35 ETOH Sent. ml6 13:35 Cardiac Injury Profile Sent. ml6 13:35 Troponin Sent. ml6 13:35 BLOOD CULTURES Sent. ml6 13:45 Chest, 2 View (pa\E\lat) Returned. EDMS 13:57 Patient visited by Geremias Oconnor FNP. ke 14:21 Patient visited by Geremias Oconnor FNP. ke 14:39 Patient visited by Zhang Castro RN. ml6 15:07 Chris Miranda is Referral Physician. ke 15:20 Discontinued IV bleeding controlled, pressure dressing applied, No redness/swelling at ml6 site. No procedures done that require assistance. 15:57 Patient moved to [place] [id number] 03/08 09:06 EKG-ADULT Returned. EDMS 09:34 T-Sheet-- Draft Copy was scanned into [employer] and attached to record. gb 09:35 ECG/EKG was scanned into [employer] and attached to record. 09:36 Trend VS was scanned into [employer] and attached to record. gb 09:36 PCR was scanned into [employer] and attached to record. gb Administered Medications: 03/07 13:10 Drug: Oxazepam 30 mg [oxazepam 15 mg capsule (2 caps)] Route: PO; ml6 13:10 Drug: Aspirin 324 mg [aspirin 81 mg chewable tablet (4 tabs)] Route: PO; ml6 13:10 Drug: Labetalol 10 mg [labetalol 5 mg/mL intravenous solution (2 mL)] Route: IVP; Rate: ml6 bolus; Infused Over: 2 mins; Site: left antecubital; 14:39 Drug: Labetalol 10 mg [labetalol 5 mg/mL intravenous solution (2 mL)] Route: IVP; Rate: ml6 bolus; Infused Over: 2 mins; Site: left antecubital; Attachments: 09:36 Trend VS gb Order Results: Lab Order: -Blood Culture; SPEC'M 03/07/16 13:29 Test: BLOOD CULTURE; Value: No growth after 72 hours . All specimens observed; Status: F Test: BLOOD CULTURE; Value: for 5 days. Results final at that time.; Status: F Test: BLOOD CULTURE; Status: F Test: BLOOD CULTURE; Value: No growth after 48 hours . All specimens observed; Status: F Test: BLOOD CULTURE; Value: for 5 days. Results final at that time.; Status: F Test: BLOOD CULTURE; Status: F Test: BLOOD CULTURE; Value: No growth after 24 hours . All specimens observed; Status: F Test: BLOOD CULTURE; Value: for 5 days. Results final at that time.; Status: F Test: BLOOD CULTURE; Value: NO GROWTH AFTER 5 DAYS; Status: F Lab Order: B-Type Natiuretic Peptide; SPEC'M 03/07/16 13:29 Test: BRAIN NATRIURETIC PEPTIDE; Value: 94.7; Range: <100; Units: PG/ML; Status: F Lab Order: Basic Metabolic Profile; SPEC'M 03/07/16 13:29 Test: GLUCOSE, FASTING; Value: 90; Range: 83-110; Units: MG/DL; Status: F Test: BLOOD UREA NITROGEN; Value: 23; Range: 7-18; Abnormal: Above high normal; Units: MG/DL; Status: F Test: CREATININE FOR GFR; Value: 1.46; Range: 0.70-1.30; Abnormal: Above high normal; Units: MG/DL; Status: F Test: GLOMERULAR FILTRATION RATE; Value: 48.5; Range: >35; Status: F Test: SODIUM LEVEL; Value: 138; Range: 136-145; Units: MEQ/L; Status: F Test: POTASSIUM SERUM; Value: 3.8; Range: 3.5-5.1; Units: MEQ/L; Status: F Test: CHLORIDE LEVEL; Value: 103; Range: 98-107; Units: MEQ/L; Status: F Test: CARBON DIOXIDE LEVEL; Value: 22; Range: 21-32; Units: MEQ/L; Status: F Test: ANION GAP; Value: 13; Range: 8-16; Units: MEQ/L; Status: F Test: CALCIUM LEVEL; Value: 8.9; Range: 8.8-10.2; Units: MG/DL; Status: F Test Note: ; Units are mL/min/1.73 m2 Chronic Kidney Disease Staging per NKF: Stage I & II GFR >=60 Normal to Mildly Decreased Stage III GFR 30-59 Moderately Decreased Stage IV GFR 15-29 Severely Decreased Stage V GFR <15 Very Little GFR Left ESRD GFR <15 on ECD Lab Order: CBC with Diff; SPEC'M 03/07/16 13:29 Test: WHITE BLOOD COUNT; Value: 9.0; Range: 4.0-10.0; Units: K/mm3; Status: F Test: RED BLOOD COUNT; Value: 4.76; Range: 4.30-6.10; Units: M/mm3; Status: F Test: HEMOGLOBIN; Value: 14.3; Range: 14.0-18.0; Units: g/dl; Status: F Test: HEMATOCRIT; Value: 41.6; Range: 42.0-52.0; Abnormal: Below low normal; Units: %; Status: F Test: MEAN CORPUSCULAR VOLUME; Value: 87.3; Range: 80.0-96.0; Units: fl; Status: F Test: MEAN CORPUSCULAR HEMOGLOBIN; Value: 30.1; Range: 27.0-33.0; Units: pg; Status: F Test: MEAN CORPUSCULAR HGB CONC; Value: 34.5; Range: 32.0-36.5; Units: g/dl; Status: F Test: RED CELL DISTRIBUTION WIDTH; Value: 13.3; Range: 11.5-14.5; Units: %; Status: F Test: PLATELET COUNT, AUTOMATED; Value: 166; Range: 150-450; Units: k/mm3; Status: F Test: NEUTROPHILS %; Value: 80.5; Range: 36.0-66.0; Abnormal: Above high normal; Units: %; Status: F Test: LYMPH %; Value: 10.0; Range: 24.0-44.0; Abnormal: Below low normal; Units: %; Status: F Test: MONO %; Value: 6.6; Range: 0.0-5.0; Abnormal: Above high normal; Units: %; Status: F Test: EOS %; Value: 0.7; Range: 0.0-3.0; Units: %; Status: F Test: BASO %; Value: 0.1; Range: 0.0-1.0; Units: %; Status: F Test: LARGE UNSTAINED CELL %; Value: 2.1; Range: 0.0-4.0; Units: %; Status: F Test: NEUTROPHILS #; Value: 7.2; Range: 1.8-7.7; Units: K/mm3; Status: F Test: LYMPH #; Value: 0.9; Range: 1.5-4.5; Abnormal: Below low normal; Units: K/mm3; Status: F Test: MONO #; Value: 0.6; Range: 0.0-0.8; Units: K/mm3; Status: F Test: EOS #; Value: 0.1; Range: 0.0-0.50; Units: K/mm3; Status: F Test: BASO #; Value: 0.0; Range: 0.0-0.2; Units: K/mm3; Status: F Test: LARGE UNSTAINED CELL #; Value: 0.2; Range: 0.0-0.4; Units: K/mm3; Status: F Lab Order: Cardiac Injury Profile; [facility]' 03/07/16 13:29 Test: CPK CREATINE PHOSPHOKINASE; Value: 45; Range: 39-308; Units: U/L; Status: F Test: CK-MB VALUE MASS; Value: 1.0; Range: 0.0-3.6; Units: NG/ML; Status: F Test: MB/CK RELATIVE INDEX; Value: 2.22; Range: < OR =4; Status: F Test Note: ; DIAGNOSIS CRITERIA MMB ng/ml Relative Index (RI) NON-AMI < or = 5 N/A [place] > 5 < or = 4 AMI > 5 > 4 Lab Order: Troponin; [facility]' 03/07/16 13:29 Test: TROPONIN I; Value: < 0.02; Range: < 0.10; Units: NG/ML; Status: F Test Note: ; Troponin I Reference Interval for Novogen LOCI: 99th Percentile= 0.00-0.045 ng/ml Risk Stratification: <= 0.10 ng/ml Decreased Risk for Adverse Clinical Events. 0.10-1.50 ng/ml Increased Risk for Adverse Clinical Events. Evaluation of additional criterion and/or repeat testing in 2-6 hours is suggested to rule out myocardial damage. >= 1.50 ng/ml Indicative of Myocardial Injury. Lab Order: ETOH; SPEC' 03/07/16 13:29 Test: ETHYL ALCOHOL (ETHANOL); Value: < 0.003; Range: 0.000-0.010; Units: %; Status: F Lab Order: Liver Profile; SPEC'M 03/07/16 13:29 Test: AST/SGOT; Value: 16; Range: 15-37; Units: U/L; Status: F Test: ALT/SGPT; Value: 17; Range: 12-78; Units: U/L; Status: F Test: ALKALINE PHOSPHATASE; Value: 70; Range: 45-117; Units: U/L; Status: F Test: BILIRUBIN,TOTAL; Value: 0.5; Range: 0.2-1.0; Units: MG/DL; Status: F Test: BILIRUBIN,DIRECT; Value: 0.1; Range: 0.0-0.2; Units: MG/DL; Status: F Test: TOTAL PROTEIN; Value: 7.2; Range: 6.4-8.2; Units: GM/DL; Status: F Test: ALBUMIN; Value: 3.6; Range: 3.2-5.2; Units: GM/DL; Status: F Test: ALBUMIN/GLOBULIN RATIO; Value: 1.00; Range: 1.00-1.93; Status: F Lab Order: BLOOD CULTURES; SPEC'M 03/07/16 13:29 Test: BLOOD CULTURE; Value: No growth after 72 hours . All specimens observed; Status: F Test: BLOOD CULTURE; Value: for 5 days. Results final at that time.; Status: F Test: BLOOD CULTURE; Status: F Test: BLOOD CULTURE; Value: No growth after 48 hours . All specimens observed; Status: F Test: BLOOD CULTURE; Value: for 5 days. Results final at that time.; Status: F Test: BLOOD CULTURE; Status: F Test: BLOOD CULTURE; Value: No growth after 24 hours . All specimens observed; Status: F Test: BLOOD CULTURE; Value: for 5 days. Results final at that time.; Status: F Test: BLOOD CULTURE; Value: NO GROWTH AFTER 5 DAYS; Status: F Lab Order: Keppra (short red top tube); SPEC'M 03/07/16 13:28 Test: LEVETIRACETAM (KEPPRA); Value: None Detected; Range: 10.0-40.0; Units: ug/mL; Status: F Test Note: ; Performed at: [address] [id number] Protective Signal Installer: Yoseph Brunson MD, Phone: [phone] Radiology Order: Chest, 2 View (pa\E\lat) Test: Chest, 2 View (pa\E\lat) REASON FOR EXAMINATION: Shortness of Breath; PA and lateral chest 03/07/2016; ; Indication redness of breath; ; Comparison PA and lateral chest 02/06/2009, portable chest 11/04/2014; ; Cardiac silhouette is of normal size. Mild ectasia and tortuosity of descending; thoracic aorta. Small left basilar nodular opacity of 6 mm diameter is most; compatible with a nipple shadow.; ; The bones and soft tissues are within normal limits.; ; Impression:; 1. Normal cardiomediastinal silhouette; 2. 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 15:20 Discharge Assessment: Patient awake, alert and oriented x 3. No cognitive and/or ml6 functional deficits noted. Patient verbalized understanding of disposition instructions. patient administered narcotics - no. The following High Risk Discharge criteria are identified: None. Discharged to home ambulatory, with family. Condition: stable. Discharge instructions given to patient, family, Instructed on discharge instructions, follow up and referral plans. medication usage, Demonstrated understanding of instructions, medications, Pt was receptive of discharge instructions/ teaching. Prescriptions given X 1. CT Study completed. Property :Personal belongings accompany Pt. 15:20 Patient left the ED. ml6 Signatures: Dispatcher [employer] EDMS Tressa Forrest, Gallery Assistant Unit deg Samantha Lemus, RN RN srm Barnhardt, Swati, Reg Reg gb Geremias Oconnor, BOILER WASHER BOILER WASHER Gissell Pendleton RN RN jo3 Lowe, Matthew, RN RN ml6 Mari Figueroa, MAINTAINABILITY ENGINEER MAINTAINABILITY ENGINEER ct3 Ivette Matthew dem1 Gissell Lau,RN RN js13 Aminata Taylor jp5 Niurka Guzman, MAINTAINABILITY ENGINEER MAINTAINABILITY ENGINEER ls3 Corrections: (The following items were deleted from the chart) 10:24 10:22 BP 200 / 117; Pulse 59bpm; Resp 18bpm; Pulse Ox 98% RA; Temp 99.0F Temporal; dem1 dem1 11: 10:45 General: Appears in no apparent distress, Behavior is appropriate for age, ml6 cooperative, [facility] : 10:45 Pain: Denies pain. [facility] ml6 11: 10:45 Neurological: No deficits noted. Level of Consciousness is awake, alert, Oriented [facility] to person, place, time, [facility] : 10:45 Cardiovascular: No deficits noted. Capillary refill < 3 seconds is brisk in ml6 bilateral fingers toes Heart tones S1 S2 present [facility] : 10:45 Respiratory: No deficits noted. Airway is patent Respiratory effort is even, ml6 unlabored, Respiratory pattern is regular, symmetrical, Breath sounds are clear bilaterally. [facility] 10:45 GI: No deficits noted. [facility] ml6 16:26 16:25 Patient left the ED. ml6 ml6 Chart Complete MTDD
--- NOTE | 2016-03-12 20:22 | EDDOCDS ---
Physician Documentation [facility] Name: Chidi May Age: 86 yrs Sex: Male : 1930 Arrival Date: 03/07/2016 Time: 10:06 Bed TR8 Private MD: Disposition: 03/07/16 15:08 Discharged to Home/Self Care. Impression: Anxiety disorder due to known physiological condition. - Condition is Stable. - Discharge Instructions: Alcohol Abuse and Nutrition, Panic Attacks, [id number]. - Prescriptions for oxazepam 30 mg Oral capsule - take 1 capsule by ORAL route 3 times per day; 20 capsule. - Medication Reconciliation, Local Pharmacy Hours form. - Follow up: Chris Miranda; When: 4 - 5 days; Reason: Recheck today's complaints, Continuance of care. - Problem is an acute exacerbation. - Symptoms have improved. Historical: - Allergies: Morphine (Vomit); - Home Meds: 1. methylphenidate 5 mg Oral tab daily (Last dose: 03/06/2016) 2. Synthroid 50 mcg Oral tab 1 tab once daily (Last dose: 03/06/2016) 3. losartan 50 mg oral tab 1 tab once daily (Last dose: 03/06/2016) 4. simvastatin 20 mg Oral tab 1 tab once daily (Last dose: 03/06/2016) 5. pantoprazole 40 mg oral TbEC 1 tab once daily (Last dose: 03/06/2016) 6. duloxetine 60 mg Oral cpDR 1 cap once daily (Last dose: 03/06/2016) 7. levetiracetam 500 mg oral tab 2 times per day (Last dose: 03/06/2016) - PMHx: Hypercholesterolemia; Hypertension; GERD; Thyroid problem; COPD; Anxiety; Alcoholism; barin cancer; leiomyasarcoma scalp; colon cancer; cerebellar aneurysm; Subdural Hematoma; kidney disease stage 3; - PSHx: brain bleed; Craniotomy; toe nail removal; Appendectomy; - Social history: Smoking status: Patient states former smoker of tobacco. No barriers to communication noted, The patient speaks fluent Croatian, Speaks appropriately for age. - Family history: Not pertinent. - : The pt / caregiver states he / she is not on anticoagulants. Home medication list is obtained from external med list Unable to Verify Home Med List with the patient / caregiver. - Exposure Risk Screening:: None identified. Vital Signs: 03/07 10:22 BP 200 / 117; Pulse 59; Resp 18; Temp 99.0(TE); Pulse Ox 98% on R/A; Weight 71.67 kg / dem1 158.01 lbs; 10:28 BP 190 / 88 RA Sitting (man/); srm 10:46 BP 178 / 63 (auto/); js13 10:46 Pulse 66 MON; Resp 16; Pulse Ox 98% on R/A; Pain 0/10; js13 11:01 BP 180 / 84 (auto/); js13 11:01 Pulse 66 MON; Resp 16; Pulse Ox 96% on R/A; js13 11:16 BP 179 / 78 (auto/); js13 11:16 Pulse 64 MON; Resp 16; Pulse Ox 96% on R/A; js13 12:30 ml6 13:30 BP 177 / 98; Pulse 65; Resp 18; Pulse Ox 98% on R/A; Pain 0/10; ml6 14:48 BP 160 / 74; Pulse 65; Resp 18; Pulse Ox 98% on R/A; ml6 15:20 BP 155 / 84; Pulse 62; Resp 18; Temp 98.3(O); Pulse Ox 98% on R/A; Pain 0/10; ml6 12:30 patient keeps taking off bp cuff, attempts made to get bp ml6 MDM: 12:29 -Blood Culture (Adults Only), peripheral from different site, or from device/port/PICC ke etc. if present ordered. 12:29 Benefits Sales Consultant/Pulse Ox/q 15 min VS ordered. ke 12:29 IV Saline Lock ordered. ke 12:29 Oxygen at 4L/Min NC or Home dosage ordered. ke 12:29 Rhythm Strip to chart ordered. ke 12:29 Oxazepam 30 mg PO once ordered. ke 12:30 B-Type Natiuretic Peptide Ordered. EDMS 12:30 Basic Metabolic Profile Ordered. EDMS 12:30 CBC with Diff Ordered. EDMS 12:30 Cardiac Injury Profile Ordered. EDMS 12:30 Troponin Ordered. EDMS 12:30 ETOH Ordered. EDMS 12:30 Liver Profile Ordered. EDMS 12:30 -Blood Culture Ordered. EDMS 12:30 Aspirin Chewable Tablet 324 mg PO once ordered. ke 12:30 Labetalol 10 mg IVP at bolus once over 2 mins ordered. ke 12:31 Chest, 2 View (pa\E\lat) Ordered. EDMS 12:31 ECG WITH READING ER PHYS+CARDIAG ordered. EDMS 12:38 -Blood Culture (Adults Only), peripheral from different site, or from device/port/PICC deg etc. if present complete. 12:39 BLOOD CULTURES Ordered. EDMS 13:03 [facility] Payment Agreement was scanned into [employer] and attached to record. jp5 13:03 Financial registration complete. jp5 13:45 Keppra (short red top tube) Ordered. EDMS 14:04 Basic Metabolic Profile Reviewed. ke 14:04 CBC with Diff Reviewed. ke 14:04 Troponin Reviewed. ke 14:04 ETOH Reviewed. ke 14:04 Liver Profile Reviewed. ke 14:04 Chest, 2 View (pa\E\lat) Reviewed. ke 14:06 Labetalol 10 mg IVP at bolus once over 2 mins ordered. ke 14:22 Basic Metabolic Profile Reviewed. ke 14:22 Cardiac Injury Profile Reviewed. ke 14:22 Troponin Reviewed. ke 14:22 ETOH Reviewed. ke 14:22 Liver Profile Reviewed. ke 14:37 B-Type Natiuretic Peptide Reviewed. ke 03/08 09:34 T-Sheet-- Draft Copy was scanned into [employer] and attached to record. gb 09:35 ECG/EKG was scanned into [employer] and attached to record. gb 09:36 Trend VS was scanned into [employer] and attached to record. gb 09:36 PCR was scanned into [employer] and attached to record. gb Administered Medications: 03/07 13:10 Drug: Oxazepam 30 mg [oxazepam 15 mg capsule (2 caps)] Route: PO; ml6 13:10 Drug: Aspirin 324 mg [aspirin 81 mg chewable tablet (4 tabs)] Route: PO; ml6 13:10 Drug: Labetalol 10 mg [labetalol 5 mg/mL intravenous solution (2 mL)] Route: IVP; Rate: ml6 bolus; Infused Over: 2 mins; Site: left antecubital; 14:39 Drug: Labetalol 10 mg [labetalol 5 mg/mL intravenous solution (2 mL)] Route: IVP; Rate: ml6 bolus; Infused Over: 2 mins; Site: left antecubital; Addendum: 03/12/2016 20:19 Radiology Callback: Radiology results faxed to primary care physician/provider. dr gracy miranda faxed formal report of cxr for fu mlg. Signatures: Dispatcher [employer] EDObinna Perla MD MD ml Murray, Denise, Ash Pit Worker Unit deg Samantha Lemus, RN RN [facility] Margarita, Swati, Reg Reg gb Geremias Oconnor, AD OPERATIONS SPECIALIST AD OPERATIONS SPECIALIST Zhang De La Vega, RN RN ml6 Aminata Taylor jp5 The chart was reviewed and I authenticate all verbal orders and agree with the evaluation and treatment provided.Attachments: 03/07 13:03 [facility] Payment Agreement jp5 03/08 09:34 T-Sheet-- Draft Copy 09:35 ECG/EKG Chart Complete MTDD
--- NOTE | 2016-03-12 20:22 | EDDOCDS ---
Physician Documentation [facility] Name: Chidi May Age: 86 yrs Sex: Male : 1930 Arrival Date: 03/07/2016 Time: 10:06 Bed TR8 Private MD: Disposition: 03/07/16 15:08 Discharged to Home/Self Care. Impression: Anxiety disorder due to known physiological condition. - Condition is Stable. - Discharge Instructions: Alcohol Abuse and Nutrition, Panic Attacks, [id number]. - Prescriptions for oxazepam 30 mg Oral capsule - take 1 capsule by ORAL route 3 times per day; 20 capsule. - Medication Reconciliation, Local Pharmacy Hours form. - Follow up: Chris Miranda; When: 4 - 5 days; Reason: Recheck today's complaints, Continuance of care. - Problem is an acute exacerbation. - Symptoms have improved. Historical: - Allergies: Morphine (Vomit); - Home Meds: 1. methylphenidate 5 mg Oral tab daily (Last dose: 03/06/2016) 2. Synthroid 50 mcg Oral tab 1 tab once daily (Last dose: 03/06/2016) 3. losartan 50 mg oral tab 1 tab once daily (Last dose: 03/06/2016) 4. simvastatin 20 mg Oral tab 1 tab once daily (Last dose: 03/06/2016) 5. pantoprazole 40 mg oral TbEC 1 tab once daily (Last dose: 03/06/2016) 6. duloxetine 60 mg Oral cpDR 1 cap once daily (Last dose: 03/06/2016) 7. levetiracetam 500 mg oral tab 2 times per day (Last dose: 03/06/2016) - PMHx: Hypercholesterolemia; Hypertension; GERD; Thyroid problem; COPD; Anxiety; Alcoholism; barin cancer; leiomyasarcoma scalp; colon cancer; cerebellar aneurysm; Subdural Hematoma; kidney disease stage 3; - PSHx: brain bleed; Craniotomy; toe nail removal; Appendectomy; - Social history: Smoking status: Patient states former smoker of tobacco. No barriers to communication noted, The patient speaks fluent Azeri, Speaks appropriately for age. - Family history: Not pertinent. - : The pt / caregiver states he / she is not on anticoagulants. Home medication list is obtained from external med list Unable to Verify Home Med List with the patient / caregiver. - Exposure Risk Screening:: None identified. Vital Signs: 03/07 10:22 BP 200 / 117; Pulse 59; Resp 18; Temp 99.0(TE); Pulse Ox 98% on R/A; Weight 71.67 kg / dem1 158.01 lbs; 10:28 BP 190 / 88 RA Sitting (man/); srm 10:46 BP 178 / 63 (auto/); js13 10:46 Pulse 66 MON; Resp 16; Pulse Ox 98% on R/A; Pain 0/10; js13 11:01 BP 180 / 84 (auto/); js13 11:01 Pulse 66 MON; Resp 16; Pulse Ox 96% on R/A; js13 11:16 BP 179 / 78 (auto/); js13 11:16 Pulse 64 MON; Resp 16; Pulse Ox 96% on R/A; js13 12:30 ml6 13:30 BP 177 / 98; Pulse 65; Resp 18; Pulse Ox 98% on R/A; Pain 0/10; ml6 14:48 BP 160 / 74; Pulse 65; Resp 18; Pulse Ox 98% on R/A; ml6 15:20 BP 155 / 84; Pulse 62; Resp 18; Temp 98.3(O); Pulse Ox 98% on R/A; Pain 0/10; ml6 12:30 patient keeps taking off bp cuff, attempts made to get bp ml6 MDM: 12:29 -Blood Culture (Adults Only), peripheral from different site, or from device/port/PICC ke etc. if present ordered. 12:29 Ductfixing Plumber/Pulse Ox/q 15 min VS ordered. ke 12:29 IV Saline Lock ordered. ke 12:29 Oxygen at 4L/Min NC or Home dosage ordered. ke 12:29 Rhythm Strip to chart ordered. ke 12:29 Oxazepam 30 mg PO once ordered. ke 12:30 B-Type Natiuretic Peptide Ordered. EDMS 12:30 Basic Metabolic Profile Ordered. EDMS 12:30 CBC with Diff Ordered. EDMS 12:30 Cardiac Injury Profile Ordered. EDMS 12:30 Troponin Ordered. EDMS 12:30 ETOH Ordered. EDMS 12:30 Liver Profile Ordered. EDMS 12:30 -Blood Culture Ordered. EDMS 12:30 Aspirin Chewable Tablet 324 mg PO once ordered. ke 12:30 Labetalol 10 mg IVP at bolus once over 2 mins ordered. ke 12:31 Chest, 2 View (pa\E\lat) Ordered. EDMS 12:31 ECG WITH READING ER PHYS+CARDIAG ordered. EDMS 12:38 -Blood Culture (Adults Only), peripheral from different site, or from device/port/PICC deg etc. if present complete. 12:39 BLOOD CULTURES Ordered. EDMS 13:03 [facility] Payment Agreement was scanned into [employer] and attached to record. jp5 13:03 Financial registration complete. jp5 13:45 Keppra (short red top tube) Ordered. EDMS 14:04 Basic Metabolic Profile Reviewed. ke 14:04 CBC with Diff Reviewed. ke 14:04 Troponin Reviewed. ke 14:04 ETOH Reviewed. ke 14:04 Liver Profile Reviewed. ke 14:04 Chest, 2 View (pa\E\lat) Reviewed. ke 14:06 Labetalol 10 mg IVP at bolus once over 2 mins ordered. ke 14:22 Basic Metabolic Profile Reviewed. ke 14:22 Cardiac Injury Profile Reviewed. ke 14:22 Troponin Reviewed. ke 14:22 ETOH Reviewed. ke 14:22 Liver Profile Reviewed. ke 14:37 B-Type Natiuretic Peptide Reviewed. ke 03/08 09:34 T-Sheet-- Draft Copy was scanned into [employer] and attached to record. gb 09:35 ECG/EKG was scanned into [employer] and attached to record. gb 09:36 Trend VS was scanned into [employer] and attached to record. gb 09:36 PCR was scanned into [employer] and attached to record. gb Administered Medications: 03/07 13:10 Drug: Oxazepam 30 mg [oxazepam 15 mg capsule (2 caps)] Route: PO; ml6 13:10 Drug: Aspirin 324 mg [aspirin 81 mg chewable tablet (4 tabs)] Route: PO; ml6 13:10 Drug: Labetalol 10 mg [labetalol 5 mg/mL intravenous solution (2 mL)] Route: IVP; Rate: ml6 bolus; Infused Over: 2 mins; Site: left antecubital; 14:39 Drug: Labetalol 10 mg [labetalol 5 mg/mL intravenous solution (2 mL)] Route: IVP; Rate: ml6 bolus; Infused Over: 2 mins; Site: left antecubital; Addendum: 03/12/2016 20:19 Radiology Callback: Radiology results faxed to primary care physician/provider. dr gracy miranda faxed formal report of cxr for fu mlg. Signatures: Dispatcher [employer] EDObinna Perla MD MD ml Murray, Denise, Sandblasting Supervisor Unit deg Samantha Lemus, RN RN [facility] Margarita, Swati, Reg Reg gb Geremias Oconnor, WHITE HAT HACKER WHITE HAT HACKER Zhang De La Vega, RN RN ml6 Aminata Taylor jp5 The chart was reviewed and I authenticate all verbal orders and agree with the evaluation and treatment provided.Attachments: 03/07 13:03 [facility] Payment Agreement jp5 03/08 09:34 T-Sheet-- Draft Copy 09:35 ECG/EKG Chart Complete MTDD
== END 2016-03-07 16:25 | disposition home or self-care (01) ==
LOC: M ED 10:06
DX: F41.9 Anxiety disorder, unspecified (principal); I12.9 Hypertensive chronic kidney disease with stage 1 through stage 4 chronic kidney disease, or unspecified chronic kidney disease; J44.9 Chronic obstructive pulmonary disease, unspecified; K21.9 Gastro-esophageal reflux disease without esophagitis; N18.3 Chronic kidney disease, stage 3 (moderate); E07.9 Disorder of thyroid, unspecified; E78.00 Pure hypercholesterolemia, unspecified; F10.20 Alcohol dependence, uncomplicated; I67.1 Cerebral aneurysm, nonruptured; Z85.841 Personal history of malignant neoplasm of brain; Z85.038 Personal history of other malignant neoplasm of large intestine; Z85.820 Personal history of malignant melanoma of skin; Z79.899 Other long term (current) drug therapy; Z79.52 Long term (current) use of systemic steroids; Z88.5 Allergy status to narcotic agent; Z87.891 Personal history of nicotine dependence
CPT/HCPCS: 71020; 80048; 80076; 80180; 82550; 82553; 83880; 84484; 85025; 87040; 93005; 93041; 96374; 96376; 99285; G0480

== ENCOUNTER → 2016-05-06 | Outpatient (REF) | payer MEDICARE ==
[2016-05-06 18:12] LABS: ALBUMIN 3.6 GM/DL (3.2-5.2); ALBUMIN/GLOBULIN RATIO 1.24 (1.00-1.93); BILIRUBIN,TOTAL 0.5 MG/DL (0.2-1.0); CALCIUM LEVEL 8.7 MG/DL (8.8-10.2); CREATININE FOR GFR 1.69 MG/DL (0.70-1.30); POTASSIUM SERUM 4.2 MEQ/L (3.5-5.1); TOTAL PROTEIN 6.5 GM/DL (6.4-8.2)
== END ==
LOC: M SFHCCLAY 10:10
PROVIDERS: ATTEND Internal Medicine
DX: I10 Essential (primary) hypertension (principal); E78.00 Pure hypercholesterolemia, unspecified

== ENCOUNTER → 2016-07-30 | Outpatient (REF) | payer MEDICARE ==
[~2016-07-30] MED LIST changes: +ALEV220T26 PO; +METH1CAP3 PO; +TRIA0.1L TOP; +VITA100037 PO; +[UNRECOGNIZED DRUG - OTHER] TOP
[2016-07-30 17:52] LABS: CALCIUM LEVEL 9.1 MG/DL (8.8-10.2); CREATININE FOR GFR 1.74 MG/DL (0.70-1.30); GLOMERULAR FILTRATION RATE 39.6 (>35); POTASSIUM SERUM 4.6 MEQ/L (3.5-5.1)
== END ==
LOC: M LABDRAWC 16:19
PROVIDERS: ATTEND Ophthalmology
DX: Z01.812 Encounter for preprocedural laboratory examination (principal); I10 Essential (primary) hypertension; H18.51 Endothelial corneal dystrophy

== ENCOUNTER → 2016-08-08 | Day surgery (SDC) | payer MEDICARE ==
[~2016-08-08] VITALS: Ht 167.6 cm; Wt 74.4 kg
[~2016-08-08] MED LIST changes: +ACETAMINOPHEN 325 MG TAB PO PRN; +ACETYLCHOLINE OPHTH SOLN 1% 2ML (MIOCHOL-E) As Ordered ONE; +BALANCED SALT IRRIGATION SOLUTION 500ML BAG (FOR OR EYE MACHINE) As Ordered ONE; +BUPIVACAINE HCL 0.25% 30 ML VIAL As Ordered ONE; -FOLI1TAB2 PO; +FOLI1TAB4 PO; +HEALON DUET (HEALON 10MG/ML 0.55ML & HEALON ENDOCOAT 30MG/ML 0.85ML) As Ordered ONE; +KEPP1TAB PO; -KEPP500T6 PO; +LIDOCAINE 1% SDV INJ 30 ML VIAL As Ordered ONE; +LIDOCAINE 2% INJ 100 MG/5 ML SDV (FOR ANES.) As Ordered ONE; +LIDOCAINE 2% W/EPIN INJ 20ML **PRES FREE As Ordered ONE; +LOSA100T8 PO; +LR 500 ML IV ONE; +MAXITROL OPHTH SUSP 5 ML As Ordered ONE; +MIDAZOLAM INJ 2 MG/2 ML VIAL (J2250) As Ordered ONE; +OFLOXACIN 0.3 % (OCUFLOX) OPTH SOL 5ML OS ONE; +ONDANSETRON 4MG/2ML VIAL (J2405) IV PRN; +PHENYLEPHRINE 2.5% OPHTH SOL 2ML As Ordered ONE; +PHENYLEPHRINE 2.5% OPHTH SOL 2ML OS ONE; +POVIDONE-IODINE 5% OPHTH PREP SOL 30ML As Ordered ONE; +PROPARACAINE 0.5% OPHTH SOL 15ML OS ONE; +PROPOFOL 200 MG/20 ML VIAL As Ordered ONE; +TRAZ50TA11 PO; -TRAZ50TA4 PO; +TRIMETHOBENZAMIDE 300 MG CAP PO PRN; +TROPICAMIDE 1% OPHTH SOLN 2ML OS ONE; +VITA-182 PO; -VITA100037 PO; -VITA100041 PO; +VITA100067 PO; +fentaNYL 100 MCG/2 ML INJECTION (J3010) As Ordered ONE
[2016-08-08] MEDS: fentaNYL 100 MCG/2 ML INJECTION (J3010) IV PRN ×4 (14:05→14:39)
[2016-08-08 15:45] VITALS: BP 143/95
--- NOTE | 2016-08-09 09:23 | RO ---
DATE OF PROCEDURE: 08/08/2016 PREPROCEDURE DIAGNOSES: 1. Fuchs corneal dystrophy. 2. Corneal edema. POSTPROCEDURE DIAGNOSES: 1. Fuchs corneal dystrophy. 2. Corneal edema. PROCEDURE: Descemet stripping automated endothelial keratoplasty with use of air and Busin glide of the left eye (8.5 mm graft). SURGEON: Zhang Lane DO TAPE CUTTER: None ANESTHESIA: Local with monitored anesthesia care (MAC). DESCRIPTION OF PROCEDURE: The patient was seen in the preoperative area and properly identified. The correct operative eye was identified and marked. Attention was turned to that eye. The patient received topical antibiotics in the preoperative area and was transferred to the operating room. The correct side was reidentified. The patient received topical antibiotic. The eye was prepped and draped in the sterile fashion. The upper and lower eyelids were isolated with Tegaderm tape and the lids were held with the speculum. The patient's cornea was sized using a metal corneal trephine and it was found that the appropriate size was 8.5 mm. The patient's cornea was marked with the 8.5 metal trephine and then this ring was marked with a marking pen. Three paracentesis incisions were made, one at 4 o'clock, one at 8 o'clock, and then one at 12 o'clock. 1% lidocaine was placed in the anterior chamber and then Miochol was placed showing a moderately small pupil. At that time, cohesive viscoelastic was placed into the anterior chamber to deepen it. Using a reverse Sinsky hook from the paracentesis incisions, descemet's membrane was scored just inside the marked area and then removed. Using a reverse stripper the peripheral host was gently polished. Using a 2.6 mm keratome, the anterior chamber was entered via a temporal clear corneal incision and then was enlarged to approximately 4.0 mm. At that time, attention was turned to the donor cornea. The cornea was placed epithelial side down. The tissue was placed in an 8.5 mm donor punch and the button was excised. The donor scleral rim was cut in half and sent for pathology and microbiology. The donor button was placed endothelial side up on the lip of the Busin glide. A small amount of cohesive viscoelastic was placed on the cornea endothelium. Using intraocular forceps, the tissue was gently retracted into the Busin tunnel. Attention was turned back to the patient. Additional Miochol was placed showing a moderately small pupil. The irrigation and aspiration function on the phacoemulsification machine was used to remove all cohesive viscoelastic from the anterior chamber. A 25-gauge anterior chamber maintainer was placed in the superior paracentesis incision to deepen the anterior chamber. The anterior chamber maintainer was turned on and set to a pressure 40 mmHg. The Busin glide with the donor button was brought near the eye and turned over so the endothelium was facing down. The intraocular forceps were inserted from the nasal paracentesis across the anterior chamber and out of the temporal incision. The graft was drawn into the incision across the anterior chamber so that the edge of the graft lined up with the epithelial marking and the graft unfolded without difficulty. The Busin glide intraocular forceps were then set aside. The anterior chamber maintainer was removed from the eye. Two single interrupted 10-0 nylon sutures were placed in the main incision to close it. The superior paracentesis incision was closed with a 10-0 nylon suture. Balanced salt solution was used to fill the anterior chamber and then air was placed beneath the donor graft to push the donor button against the recipient stroma and was left without manipulation for 10 minutes. Incisions were then sealed further with ReSure sealant. After the 10 minutues , using a 30-gauge cannula on a BSS syringe, the intraocular air bubble was reduced to about 50% and was mobile. A drop of 2.5% phenylephrine was placed on the patient's eye. The lid speculum was removed and a shield was placed over the eye. The patient was sent to postanesthesia care unit for one hour to lay supine to enhance graft sticking. The patient was reexamined approximately 60 minutes later. The pressure was found to be within normal limits by finger tension and additional air was removed showing a 30% bubble and mobile. An additional 2.5% phenylephrine drop was placed. At that time, TobraDex ointment was placed into the left eye and a patch and shield were fixed over the eye. The patient was instructed to lay flat as much as possible over the next 24 hours until followup in the office. The patient was discharged home in a stable condition. FREDERICK
== END | disposition home or self-care (01) ==
LOC: M SDC 09:23
PROVIDERS: ATTEND Ophthalmology
DX: H18.51 Endothelial corneal dystrophy (principal); H18.20 Unspecified corneal edema; R00.0 Tachycardia, unspecified; I12.9 Hypertensive chronic kidney disease with stage 1 through stage 4 chronic kidney disease, or unspecified chronic kidney disease; E78.5 Hyperlipidemia, unspecified; E03.9 Hypothyroidism, unspecified; K21.9 Gastro-esophageal reflux disease without esophagitis; M12.9 Arthropathy, unspecified; M54.2 Cervicalgia; S81.009D Unspecified open wound, unspecified knee, subsequent encounter; S51.009D Unspecified open wound of unspecified elbow, subsequent encounter; L21.9 Seborrheic dermatitis, unspecified; F90.9 Attention-deficit hyperactivity disorder, unspecified type; F32.9 Major depressive disorder, single episode, unspecified; J45.21 Mild intermittent asthma with (acute) exacerbation; N13.9 Obstructive and reflux uropathy, unspecified; F34.1 Dysthymic disorder; R56.9 Unspecified convulsions; R29.6 Repeated falls; J44.9 Chronic obstructive pulmonary disease, unspecified; N18.3 Chronic kidney disease, stage 3 (moderate); N40.0 Benign prostatic hyperplasia without lower urinary tract symptoms; G62.9 Polyneuropathy, unspecified; Z88.5 Allergy status to narcotic agent; Z79.899 Other long term (current) drug therapy; Z87.891 Personal history of nicotine dependence; Z85.828 Personal history of other malignant neoplasm of skin; Z66 Do not resuscitate
CPT/HCPCS: 65756; 65757; 87070; 87075; 87102; 88300; 88302; J2250; J3010

== ENCOUNTER 2016-12-04 19:49 | Emergency (ER) | payer MEDICARE ==
[~2016-12-04] VITALS: Ht 167.6 cm; Wt 75.0 kg
[~2016-12-04 19:49] MED LIST changes: -ACETAMINOPHEN 325 MG TAB PO PRN; -ACETYLCHOLINE OPHTH SOLN 1% 2ML (MIOCHOL-E) As Ordered ONE; -BALANCED SALT IRRIGATION SOLUTION 500ML BAG (FOR OR EYE MACHINE) As Ordered ONE; -BUPIVACAINE HCL 0.25% 30 ML VIAL As Ordered ONE; -HEALON DUET (HEALON 10MG/ML 0.55ML & HEALON ENDOCOAT 30MG/ML 0.85ML) As Ordered ONE; -LIDOCAINE 1% SDV INJ 30 ML VIAL As Ordered ONE; -LIDOCAINE 2% INJ 100 MG/5 ML SDV (FOR ANES.) As Ordered ONE; -LIDOCAINE 2% W/EPIN INJ 20ML **PRES FREE As Ordered ONE; -LR 500 ML IV ONE; -MAXITROL OPHTH SUSP 5 ML As Ordered ONE; -MIDAZOLAM INJ 2 MG/2 ML VIAL (J2250) As Ordered ONE; -OFLOXACIN 0.3 % (OCUFLOX) OPTH SOL 5ML OS ONE; -ONDANSETRON 4MG/2ML VIAL (J2405) IV PRN; -PHENYLEPHRINE 2.5% OPHTH SOL 2ML As Ordered ONE; -PHENYLEPHRINE 2.5% OPHTH SOL 2ML OS ONE; -POVIDONE-IODINE 5% OPHTH PREP SOL 30ML As Ordered ONE; -PROPARACAINE 0.5% OPHTH SOL 15ML OS ONE; -PROPOFOL 200 MG/20 ML VIAL As Ordered ONE; -TRIMETHOBENZAMIDE 300 MG CAP PO PRN; -TROPICAMIDE 1% OPHTH SOLN 2ML OS ONE; -fentaNYL 100 MCG/2 ML INJECTION (J3010) As Ordered ONE
--- NOTE | 2016-12-04 22:00 | REPUSA ---
CLINICAL HISTORY: Trauma. TECHNIQUE: Multiple axial CT images were obtained through the brain without IV contrast material. COMMENTS: There is normal configuration of sella turcica. There are no intra or extra-axial collections. There is no mass effect or midline shift. There is no evidence of hematoma formation. No hydrocephalus is p resent. The ventricles are symmetrical. No abnormal calcifications are present. There is diffuse age-appropriate cerebellar and cerebral atrophy with proportionally dilated ventricl es and cortical sulci. There are bilateral periventricular and subcortical white matter hypolucencies compatible with chroni c microvascular disease. Otherwise, no significant focal abnormalities are seen either in the posterior fossa or supratentoria l compartment. IMPRESSION: 1. Age-appropriate cerebellar and cerebral atrophy. 2. Chronic microvascular disease. 3. No evidence of acute intracranial pathology. Thank you for your kind referral of this patient.
--- NOTE | 2016-12-04 22:10 | REPUSA ---
CLINICAL HISTORY: Trauma. TECHNIQUE: Multiple axial images were obtained through the cervical spine. Images were also reconstru cted in coronal and sagittal planes. The study was performed without IV contrast. COMMENTS: There is no fracture. Grade 1 anterior spondylolisthesis of C2 on C3 is noted. Grade 1 retrolisthesi s of C3 on C4 and C4 on C5 is seen. The paraspinal soft tissues are unremarkable. There are no lytic or blastic lesions. Straightening of cervical lordosis is seen, suggesting muscular spasm. There is evidence of severe mu ltilevel disk disease, demonstrated by loss of disc space heights, osteophytosis and endplate scleros is. Severe multilevel foraminal and canal stenosis is seen, especially at C3-C4 through C6-C7. IMPRESSION: 1. Grade 1 anterior spondylolisthesis of C2 on C3 is noted. Grade 1 retrolisthesis of C3 on C4 and C4 on C5 is seen. 2. Straightening of cervical lordosis is seen, suggesting muscular spasm. 3. Severe multilevel foraminal and canal stenosis is seen, especially at C3-C4 through C6-C7. Thank you for your kind referral of this patient.
[2016-12-04 23:46] VITALS: BP 143/63
--- NOTE | 2016-12-05 08:17 | ED PDOC ---
Post-Departure Follow-Up radiology rpeort faxed to Ariadne Orellana MD Dec 05, 2016 08:17
== END 2016-12-04 23:48 | disposition home or self-care (01) ==
LOC: EDSEX 19:49 → M ED 19:49 → EDUNIT# 19:49 → EDBD 19:49 → M ED 23:48
DX: S01.01XA Laceration without foreign body of scalp, initial encounter (principal); W01.198A Fall on same level from slipping, tripping and stumbling with subsequent striking against other object, initial encounter; Y92.129 Unspecified place in nursing home as the place of occurrence of the external cause; Y93.89 Activity, other specified; Y99.8 Other external cause status; I69.193 Ataxia following nontraumatic intracerebral hemorrhage; K21.9 Gastro-esophageal reflux disease without esophagitis; F33.9 Major depressive disorder, recurrent, unspecified; Z79.899 Other long term (current) drug therapy; Z88.5 Allergy status to narcotic agent; Z85.038 Personal history of other malignant neoplasm of large intestine

== ENCOUNTER → 2016-12-24 | Outpatient (REF) | payer MEDICARE ==
[2016-12-24 11:44] LABS: ALBUMIN 3.8 GM/DL (3.2-5.2); ALBUMIN/GLOBULIN RATIO 1.19 (1.00-1.93); BILIRUBIN,TOTAL 0.6 MG/DL (0.2-1.0); CALCIUM LEVEL 8.9 MG/DL (8.8-10.2); CREATININE FOR GFR 1.72 MG/DL (0.70-1.30); GLOMERULAR FILTRATION RATE 40.1 (>35); MAGNESIUM LEVEL 2.2 MG/DL (1.8-2.4); POTASSIUM SERUM 5.1 MEQ/L (3.5-5.1)
== END ==
PROVIDERS: ATTEND Internal Medicine
DX: I10 Essential (primary) hypertension (principal)

== ENCOUNTER 2017-02-09 10:33 | Inpatient (IN) | payer MEDICARE ==
[2017-02-09] MEDS: ACETAMINOPHEN 325 MG TAB PO (11:00)
[2017-02-09 11:01] LABS: BASO % 0.1 % (0.0-1.0); IMMATURE GRANULOCYTE # 0.1 10^3/uL (0-0); IMMATURE GRANULOCYTE % 0.5 % (0-0); LYMPH # 0.5 10^3/uL (1.5-4.5); LYMPH % 2.6 % (24.0-44.0); MEAN CORPUSCULAR HEMOGLOBIN 29.1 pg (27.0-33.0); MEAN CORPUSCULAR VOLUME 85.5 fl (80.0-96.0); MONO # 1.7 10^3/uL (0.0-0.8); MONO % 8.8 % (0.0-5.0); NEUTROPHILS # 16.5 10^3/uL (1.8-7.7); PLATELET COUNT, AUTOMATED 203 10^3/uL (150-450); RED CELL DISTRIBUTION WIDTH 13.3 % (11.5-14.5); WHITE BLOOD COUNT 18.8 10^3/uL (4.0-10.0)
[2017-02-09 11:03] LABS: ANION GAP 10 MEQ/L (8-16); BLOOD UREA NITROGEN 31 MG/DL (7-18); CALCIUM LEVEL 8.2 MG/DL (8.8-10.2); CARBON DIOXIDE LEVEL 24 MEQ/L (21-32); CHLORIDE LEVEL 109 MEQ/L (98-107); CREATININE FOR GFR 2.12 MG/DL (0.70-1.30); GLOMERULAR FILTRATION RATE 31.5 (>35); GLUCOSE, FASTING 108 MG/DL (83-110); POTASSIUM SERUM 3.9 MEQ/L (3.5-5.1); SODIUM LEVEL 143 MEQ/L (136-145)
[2017-02-09 11:09] LABS: ALBUMIN 3.3 GM/DL (3.2-5.2); ALBUMIN/GLOBULIN RATIO 1.14 (1.00-1.93); ALKALINE PHOSPHATASE 65 U/L (45-117); ALT/SGPT 13 U/L (12-78); AST/SGOT 12 U/L (7-37); BILIRUBIN,DIRECT 0.2 MG/DL (0.0-0.2); BILIRUBIN,TOTAL 0.7 MG/DL (0.2-1.0); TOTAL PROTEIN 6.2 GM/DL (6.4-8.2)
[2017-02-09 11:14] LABS: LACTIC ACID SEPSIS PROTOCOL 2.4 MMOL/L (0.4-2.0)
[2017-02-09] MEDS: NS 1,000 ML IV ×3 (11:26→12:30)
[2017-02-09] MEDS: PIPERACILLIN/TAZOBACTAM SOD 4.5 GM in APPROPRIATE DILUENT 1 EA IV (11:29)
[2017-02-09] MEDS: ALBUTEROL SULFATE 2.5 MG/0.5 ML INH NEB SOLN INH (11:58)
[2017-02-09] MEDS: IPRATROPIUM 0.5MG/ALBUTEROL 2.5MG INH SOL UD 3ML (DUONEB)(J7620) NEB (11:58)
[2017-02-09] MEDS: DILUENT IV (12:00)
[2017-02-09] MEDS: NS IV (12:00)
[2017-02-09] MEDS: VANCOMYCIN HCL 1,000 MG, VIAL MATE ADAPTER 1 EACH in D5W 250 ML IV (12:00)
[2017-02-09 12:14] LABS: ABG BASE EXCESS -6.2 (-2.0-2.0); ABG HCO3 17.8 MEQ/L (22.0-26.0); ABG PARTIAL PRESSURE CO2 30.9 mmHg (35.0-45.0); ABG PARTIAL PRESSURE O2 135.3 mmHg (75.0-100.0); ABG STANDARD HCO3 19.5 MEQ/L (22.0-26.0); ABG TOTAL CO2 18.7 MEQ/L (23.0-31.0); ABG pH (ARTERIAL) 7.378 UNITS (7.350-7.450)
[2017-02-09] MEDS: methylPREDNISolone INJ 125 MG/2 ML VIAL (J2930) IV (12:18)
[2017-02-09] MEDS ORDERED: PIPERACILLIN/TAZOBACTAM SOD 2.25 GM in APPROPRIATE DILUENT 1 EA IV (12:30)
[2017-02-09] MEDS: LACTOBACILLUS ACIDOPHILUS CAP (BACID) PO ×2 (12:30→18:38)
[2017-02-09] MEDS: VANCOMYCIN HCL 750 MG, VIAL MATE ADAPTER 1 EACH in D5W 250 ML IV (13:30)
[2017-02-09] MEDS ORDERED: TRIAMCINOLONE ACET 0.1% CREAM 15 GM TOP (14:30)
[2017-02-09] MEDS ORDERED: MOM 30ML SUSPENSION UDC PO (14:30)
[2017-02-09] MEDS ORDERED: CALCIUM CARBONATE 500 MG CHEW U/D PO (14:30)
[2017-02-09] MEDS ORDERED: LORazepam 2 MG/ML VIAL (J2060) IV (14:45)
[2017-02-09 15:47] LABS: METHADONE URINE NEGATIVE (NEGATIVE)
[2017-02-09] MEDS ORDERED: levETIRAcetam INJection 1,000 MG in D5W 100 ML IV (16:00)
[2017-02-09] MEDS: PIPERACILLIN/TAZOBACTAM SOD 3.375 GM in APPROPRIATE DILUENT 1 EA IV (18:36)
[2017-02-09] MEDS: POLYVINYL ALCOHOL OPHTH SOLN 15 ML(LIQUITEARS) OU ×2 (18:36→20:14)
[2017-02-09] MEDS: SOD CHLORIDE OD ×2 (18:36→20:14)
[2017-02-09] MEDS: ENOXAPARIN 30 MG/0.3 ML SYR (J1650) SC (18:38)
[2017-02-09] MEDS: levETIRAcetam INJection 1,000 MG in D5W 100 ML IV (20:00)
[2017-02-09] MEDS: SYMBICORT 160/4.5MCG INHALER 6GM INH (20:43)
[2017-02-09] MEDS ORDERED: levETIRAcetam 250MG TABLET (KEPPRA) PO (21:00)
[2017-02-10] MEDS: PIPERACILLIN/TAZOBACTAM SOD 3.375 GM in APPROPRIATE DILUENT 1 EA IV ×4 (01:08→18:17)
[2017-02-10 05:28] LABS: BASO % 0.1 % (0.0-1.0); IMMATURE GRANULOCYTE # 0.4 10^3/uL (0-0); IMMATURE GRANULOCYTE % 1.7 % (0-0); LYMPH # 0.8 10^3/uL (1.5-4.5); LYMPH % 3.1 % (24.0-44.0); MEAN CORPUSCULAR HEMOGLOBIN 29.4 pg (27.0-33.0); MEAN CORPUSCULAR VOLUME 86.5 fl (80.0-96.0); MONO # 0.8 10^3/uL (0.0-0.8); MONO % 3.2 % (0.0-5.0); NEUTROPHILS % 91.9 % (36.0-66.0); PLATELET COUNT, AUTOMATED 161 10^3/uL (150-450); RED CELL DISTRIBUTION WIDTH 13.9 % (11.5-14.5)
[2017-02-10 05:51] LABS: ALBUMIN 2.8 GM/DL (3.2-5.2); ALBUMIN/GLOBULIN RATIO 0.82 (1.00-1.93); ALKALINE PHOSPHATASE 39 U/L (45-117); ALT/SGPT 13 U/L (12-78); ANION GAP 11 MEQ/L (8-16); AST/SGOT 9 U/L (7-37); BILIRUBIN,TOTAL 0.5 MG/DL (0.2-1.0); BLOOD UREA NITROGEN 33 MG/DL (7-18); CALCIUM LEVEL 7.6 MG/DL (8.8-10.2); CARBON DIOXIDE LEVEL 19 MEQ/L (21-32); CHLORIDE LEVEL 109 MEQ/L (98-107); CREATININE FOR GFR 1.94 MG/DL (0.70-1.30); GLOMERULAR FILTRATION RATE 34.9 (>35); GLUCOSE, FASTING 177 MG/DL (83-110); MAGNESIUM LEVEL 1.9 MG/DL (1.8-2.4); POTASSIUM SERUM 4.3 MEQ/L (3.5-5.1); SODIUM LEVEL 139 MEQ/L (136-145); TOTAL PROTEIN 6.2 GM/DL (6.4-8.2)
[2017-02-10] MEDS: LEVOTHYROXINE 50MCG TABLET (0.05MG) PO (06:11)
[2017-02-10] MEDS: TAMSULOSIN 0.4 MG CAP PO (09:41)
[2017-02-10] MEDS: prednisoLONE ACET 1% OPHTH SUSP 5ML OS (09:41)
[2017-02-10] MEDS: DULoxetine 30 MG CAP (CYMBALTA) PO (09:41)
[2017-02-10] MEDS: VITAMIN D 1,000 INTERNATIONAL UNITS TABLET PO (09:41)
[2017-02-10] MEDS: LACTOBACILLUS ACIDOPHILUS CAP (BACID) PO ×3 (09:41→18:17)
[2017-02-10] MEDS: ENOXAPARIN 30 MG/0.3 ML SYR (J1650) SC (09:41)
[2017-02-10] MEDS: levETIRAcetam INJection 1,000 MG in D5W 100 ML IV ×2 (09:42→20:42)
[2017-02-10 10:45] LABS: PROLACTIN 6.8 NG/ML (2.1-17.7)
[2017-02-10] MEDS: SYMBICORT 160/4.5MCG INHALER 6GM INH ×2 (11:30→21:21)
[2017-02-10] MEDS: SOD CHLORIDE OD ×3 (12:52→20:52)
[2017-02-10] MEDS: POLYVINYL ALCOHOL OPHTH SOLN 15 ML(LIQUITEARS) OU ×4 (12:52→20:52)
[2017-02-10] MEDS: VANCOMYCIN HCL 1,000 MG, VIAL MATE ADAPTER 1 EACH in D5W 250 ML IV (12:52)
[2017-02-10] MEDS: METHYLPHENIDATE 5 MG TAB PO (14:46)
[2017-02-10] MEDS: ACETAMINOPHEN TAB 650MG DOSE (2X325MG) PO (14:47)
[2017-02-10] MEDS ORDERED: amLODIPine 5 MG TAB PO (19:30)
[2017-02-10] MEDS: SIMVASTATIN 20 MG TAB PO (20:43)
[2017-02-10] MEDS: NITROGLYCERIN 2% OINT 1 GM *U/D* PKT TOP (20:50)
[2017-02-11] MEDS: PIPERACILLIN/TAZOBACTAM SOD 3.375 GM in APPROPRIATE DILUENT 1 EA IV ×4 (00:51→18:58)
[2017-02-11] MEDS: ACETAMINOPHEN TAB 650MG DOSE (2X325MG) PO ×3 (00:55→23:29)
[2017-02-11 05:48] LABS: BASO % 0.1 % (0.0-1.0); IMMATURE GRANULOCYTE # 0.2 10^3/uL (0-0); IMMATURE GRANULOCYTE % 0.9 % (0-0); LYMPH # 0.9 10^3/uL (1.5-4.5); LYMPH % 5.7 % (24.0-44.0); MEAN CORPUSCULAR HGB CONC 33.9 g/dl (32.0-36.5); MEAN CORPUSCULAR VOLUME 85.6 fl (80.0-96.0); MONO # 1.1 10^3/uL (0.0-0.8); MONO % 6.8 % (0.0-5.0); NEUTROPHILS % 86.5 % (36.0-66.0); PLATELET COUNT, AUTOMATED 152 10^3/uL (150-450); RED CELL DISTRIBUTION WIDTH 14.2 % (11.5-14.5); WHITE BLOOD COUNT 16.1 10^3/uL (4.0-10.0)
[2017-02-11 05:58] LABS: ANION GAP 7 MEQ/L (8-16); BLOOD UREA NITROGEN 32 MG/DL (7-18); CALCIUM LEVEL 7.9 MG/DL (8.8-10.2); CARBON DIOXIDE LEVEL 23 MEQ/L (21-32); CHLORIDE LEVEL 112 MEQ/L (98-107); CREATININE FOR GFR 1.77 MG/DL (0.70-1.30); GLOMERULAR FILTRATION RATE 38.8 (>35); GLUCOSE, FASTING 101 MG/DL (83-110); SODIUM LEVEL 142 MEQ/L (136-145)
[2017-02-11] MEDS: LEVOTHYROXINE 50MCG TABLET (0.05MG) PO (06:00)
[2017-02-11] MEDS: NITROGLYCERIN 2% OINT 1 GM *U/D* PKT TOP ×6 (06:15→19:43)
[2017-02-11] MEDS: SYMBICORT 160/4.5MCG INHALER 6GM INH ×2 (08:21→20:36)
[2017-02-11] MEDS: levETIRAcetam INJection 1,000 MG in D5W 100 ML IV ×2 (08:48→19:43)
[2017-02-11] MEDS: LACTOBACILLUS ACIDOPHILUS CAP (BACID) PO ×3 (08:49→17:23)
[2017-02-11] MEDS: METHYLPHENIDATE 5 MG TAB PO (08:49)
[2017-02-11] MEDS: DULoxetine 30 MG CAP (CYMBALTA) PO (08:50)
[2017-02-11] MEDS: TAMSULOSIN 0.4 MG CAP PO (08:50)
[2017-02-11] MEDS: VITAMIN D 1,000 INTERNATIONAL UNITS TABLET PO (08:51)
[2017-02-11] MEDS: prednisoLONE ACET 1% OPHTH SUSP 5ML OS (08:51)
[2017-02-11] MEDS: POLYVINYL ALCOHOL OPHTH SOLN 15 ML(LIQUITEARS) OU ×4 (08:53→21:32)
[2017-02-11] MEDS: SOD CHLORIDE OD ×3 (08:53→21:32)
[2017-02-11] MEDS: LR 1,000 ML IV ×2 (08:54→12:20)
[2017-02-11] MEDS: LIDOCAINE 1% SDV INJ 30 ML VIAL As Ordered (11:39)
[2017-02-11] MEDS ORDERED: MIDAZOLAM INJ 2 MG/2 ML VIAL (J2250) As Ordered (11:54)
[2017-02-11] MEDS ORDERED: PROPOFOL 200 MG/20 ML VIAL As Ordered (11:54)
[2017-02-11] MEDS ORDERED: LIDOCAINE 2% INJ 100 MG/5 ML SDV (FOR ANES.) As Ordered (11:54)
[2017-02-11] MEDS ORDERED: ZOSYN 3.375 GM VIAL (J2543) As Ordered (12:22)
[2017-02-11] MEDS ORDERED: NORCO, ANEXSIA 5/325MG TABLET (HYDROcodone/ACETAMINOPHEN) As Ordered (12:45)
[2017-02-11] MEDS ORDERED: ONDANSETRON 4MG/2ML VIAL (J2405) IV (12:45)
[2017-02-11] MEDS: NORCO, ANEXSIA 5/325MG TABLET (HYDROcodone/ACETAMINOPHEN) PO (12:50)
[2017-02-11] MEDS: VANCOMYCIN HCL 1,000 MG, VIAL MATE ADAPTER 1 EACH in D5W 250 ML IV (14:07)
[2017-02-11] MEDS: CARVedilol 12.5 MG TAB PO ×2 (14:07→21:31)
[2017-02-11] MEDS: SIMVASTATIN 20 MG TAB PO (21:32)
[2017-02-12 00:06] LABS: Lyme Disease IgG/IgM Antibodie <0.91 ISR (0.00-0.90); Lyme Disease IgM Ab Quantitati <0.80 index (0.00-0.79)
[2017-02-12] MEDS: NITROGLYCERIN 2% OINT 1 GM *U/D* PKT TOP ×3 (00:26→08:09)
[2017-02-12] MEDS: PIPERACILLIN/TAZOBACTAM SOD 3.375 GM in APPROPRIATE DILUENT 1 EA IV ×5 (00:27→23:59)
[2017-02-12] MEDS: ACETAMINOPHEN TAB 650MG DOSE (2X325MG) PO ×3 (03:59→17:54)
[2017-02-12 06:00] LABS: BASO % 0.1 % (0.0-1.0); EOS % 0.1 % (0.0-3.0); IMMATURE GRANULOCYTE # 0.2 10^3/uL (0-0); IMMATURE GRANULOCYTE % 1.1 % (0-0); LYMPH % 6.4 % (24.0-44.0); MEAN CORPUSCULAR HEMOGLOBIN 28.8 pg (27.0-33.0); MEAN CORPUSCULAR HGB CONC 33.9 g/dl (32.0-36.5); MEAN CORPUSCULAR VOLUME 85.1 fl (80.0-96.0); MONO # 1.1 10^3/uL (0.0-0.8); MONO % 7.2 % (0.0-5.0); NEUTROPHILS # 12.6 10^3/uL (1.8-7.7); NEUTROPHILS % 85.1 % (36.0-66.0); PLATELET COUNT, AUTOMATED 180 10^3/uL (150-450); RED CELL DISTRIBUTION WIDTH 14.3 % (11.5-14.5); WHITE BLOOD COUNT 14.8 10^3/uL (4.0-10.0)
[2017-02-12] MEDS: LEVOTHYROXINE 50MCG TABLET (0.05MG) PO (06:07)
[2017-02-12 06:21] LABS: ANION GAP 8 MEQ/L (8-16); BLOOD UREA NITROGEN 28 MG/DL (7-18); CALCIUM LEVEL 8.2 MG/DL (8.8-10.2); CARBON DIOXIDE LEVEL 22 MEQ/L (21-32); CHLORIDE LEVEL 111 MEQ/L (98-107); CREATININE FOR GFR 1.54 MG/DL (0.70-1.30); GLOMERULAR FILTRATION RATE 45.6 (>35); GLUCOSE, FASTING 97 MG/DL (83-110); SODIUM LEVEL 141 MEQ/L (136-145)
[2017-02-12] MEDS: SYMBICORT 160/4.5MCG INHALER 6GM INH ×2 (07:32→21:26)
[2017-02-12] MEDS: METHYLPHENIDATE 5 MG TAB PO (08:06)
[2017-02-12] MEDS: VITAMIN D 1,000 INTERNATIONAL UNITS TABLET PO (08:07)
[2017-02-12] MEDS: DULoxetine 30 MG CAP (CYMBALTA) PO (08:07)
[2017-02-12] MEDS: LACTOBACILLUS ACIDOPHILUS CAP (BACID) PO ×3 (08:07→17:54)
[2017-02-12] MEDS: CARVedilol 12.5 MG TAB PO (08:08)
[2017-02-12] MEDS: TAMSULOSIN 0.4 MG CAP PO (08:08)
[2017-02-12] MEDS: prednisoLONE ACET 1% OPHTH SUSP 5ML OS (08:09)
[2017-02-12] MEDS: POLYVINYL ALCOHOL OPHTH SOLN 15 ML(LIQUITEARS) OU ×5 (08:09→21:20)
[2017-02-12] MEDS: SOD CHLORIDE OD ×3 (08:09→21:15)
[2017-02-12] MEDS: levETIRAcetam INJection 1,000 MG in D5W 100 ML IV (08:58)
[2017-02-12] MEDS ORDERED: ZOSYN 3.375 GM VIAL (J2543) (11:03)
[2017-02-12] MEDS: amLODIPine 10 MG TAB PO (12:48)
[2017-02-12] MEDS: VANCOMYCIN HCL 1,000 MG, VIAL MATE ADAPTER 1 EACH in D5W 250 ML IV (13:16)
[2017-02-12] MEDS ORDERED: SLF 3 ML SYR IV (13:30)
[2017-02-12] MEDS: SLF 3 ML SYR IV ×2 (14:21→21:16)
[2017-02-12] MEDS: levETIRAcetam 250MG TABLET (KEPPRA) PO (21:15)
[2017-02-12] MEDS: traZODone 50 MG TAB PO (21:15)
[2017-02-12] MEDS: SIMVASTATIN 20 MG TAB PO (21:15)
[2017-02-13] MEDS: CARVedilol 12.5 MG TAB PO ×5 (00:02→21:21)
[2017-02-13 00:07] LABS: ORGANISM ID Not indicated. (.); SPECIMEN SOURCE Urine (.)
[2017-02-13] MEDS: LEVOTHYROXINE 50MCG TABLET (0.05MG) PO (05:46)
[2017-02-13] MEDS: SLF 3 ML SYR IV ×3 (05:46→21:22)
[2017-02-13] MEDS: PIPERACILLIN/TAZOBACTAM SOD 3.375 GM in APPROPRIATE DILUENT 1 EA IV (05:46)
[2017-02-13 06:58] LABS: BASO % 0.3 % (0.0-1.0); EOS # 0.1 10^3/uL (0.0-0.50); EOS % 0.5 % (0.0-3.0); IMMATURE GRANULOCYTE # 0.2 10^3/uL (0-0); IMMATURE GRANULOCYTE % 1.8 % (0-0); LYMPH # 0.8 10^3/uL (1.5-4.5); LYMPH % 8.2 % (24.0-44.0); MEAN CORPUSCULAR HGB CONC 33.6 g/dl (32.0-36.5); MEAN CORPUSCULAR VOLUME 86.2 fl (80.0-96.0); MONO # 0.9 10^3/uL (0.0-0.8); MONO % 9.4 % (0.0-5.0); NEUTROPHILS # 7.4 10^3/uL (1.8-7.7); NEUTROPHILS % 79.8 % (36.0-66.0); PLATELET COUNT, AUTOMATED 178 10^3/uL (150-450); RED CELL DISTRIBUTION WIDTH 13.7 % (11.5-14.5); WHITE BLOOD COUNT 9.3 10^3/uL (4.0-10.0)
[2017-02-13 07:12] LABS: ANION GAP 10 MEQ/L (8-16); BLOOD UREA NITROGEN 22 MG/DL (7-18); CALCIUM LEVEL 8.4 MG/DL (8.8-10.2); CARBON DIOXIDE LEVEL 25 MEQ/L (21-32); CHLORIDE LEVEL 106 MEQ/L (98-107); CREATININE FOR GFR 1.37 MG/DL (0.70-1.30); GLOMERULAR FILTRATION RATE 52.2 (>35); GLUCOSE, FASTING 93 MG/DL (83-110); POTASSIUM SERUM 3.6 MEQ/L (3.5-5.1); SODIUM LEVEL 141 MEQ/L (136-145)
[2017-02-13] MEDS: SYMBICORT 160/4.5MCG INHALER 6GM INH ×2 (07:50→21:18)
[2017-02-13] MEDS: VITAMIN D 1,000 INTERNATIONAL UNITS TABLET PO (08:00)
[2017-02-13] MEDS: levETIRAcetam 250MG TABLET (KEPPRA) PO ×2 (08:00→21:20)
[2017-02-13] MEDS: TAMSULOSIN 0.4 MG CAP PO (08:00)
[2017-02-13] MEDS: DULoxetine 30 MG CAP (CYMBALTA) PO (08:00)
[2017-02-13] MEDS: POLYVINYL ALCOHOL OPHTH SOLN 15 ML(LIQUITEARS) OU ×4 (08:01→21:21)
[2017-02-13] MEDS: amLODIPine 10 MG TAB PO (08:01)
[2017-02-13] MEDS: LACTOBACILLUS ACIDOPHILUS CAP (BACID) PO ×3 (08:01→17:36)
[2017-02-13] MEDS: SOD CHLORIDE OD ×3 (08:01→21:21)
[2017-02-13] MEDS: METHYLPHENIDATE 5 MG TAB PO (08:01)
[2017-02-13] MEDS: prednisoLONE ACET 1% OPHTH SUSP 5ML OS (08:02)
[2017-02-13] MEDS: LevoFLOXacin 750 MG TABLET PO (11:13)
[2017-02-13] MEDS: ACETAMINOPHEN TAB 650MG DOSE (2X325MG) PO ×2 (11:18→19:32)
[2017-02-13] MEDS: FUROSEMIDE 20 MG/2 ML VIAL (J1940) IV (18:08)
[2017-02-13] MEDS: SIMVASTATIN 20 MG TAB PO (21:20)
[2017-02-13] MEDS: POTASSIUM CHLORIDE 10 MEQ SR TABLET PO (21:20)
[2017-02-13] MEDS: traZODone 50 MG TAB PO (21:28)
[2017-02-14 06:03] LABS: BASO % 0.4 % (0.0-1.0); EOS # 0.1 10^3/uL (0.0-0.50); EOS % 0.6 % (0.0-3.0); IMMATURE GRANULOCYTE # 0.3 10^3/uL (0-0); IMMATURE GRANULOCYTE % 3.9 % (0-0); LYMPH # 1.1 10^3/uL (1.5-4.5); LYMPH % 13.5 % (24.0-44.0); MEAN CORPUSCULAR HEMOGLOBIN 29.2 pg (27.0-33.0); MEAN CORPUSCULAR HGB CONC 34.8 g/dl (32.0-36.5); MEAN CORPUSCULAR VOLUME 83.9 fl (80.0-96.0); MONO # 1.1 10^3/uL (0.0-0.8); MONO % 13.7 % (0.0-5.0); NEUTROPHILS # 5.4 10^3/uL (1.8-7.7); NEUTROPHILS % 67.9 % (36.0-66.0); PLATELET COUNT, AUTOMATED 211 10^3/uL (150-450); RED CELL DISTRIBUTION WIDTH 13.6 % (11.5-14.5); WHITE BLOOD COUNT 7.9 10^3/uL (4.0-10.0)
[2017-02-14] MEDS: SLF 3 ML SYR IV (06:04)
[2017-02-14] MEDS: LEVOTHYROXINE 50MCG TABLET (0.05MG) PO (06:04)
[2017-02-14 06:28] LABS: ANION GAP 9 MEQ/L (8-16); BLOOD UREA NITROGEN 22 MG/DL (7-18); CALCIUM LEVEL 8.5 MG/DL (8.8-10.2); CARBON DIOXIDE LEVEL 25 MEQ/L (21-32); CHLORIDE LEVEL 108 MEQ/L (98-107); CREATININE FOR GFR 1.41 MG/DL (0.70-1.30); GLOMERULAR FILTRATION RATE 50.5 (>35); GLUCOSE, FASTING 114 MG/DL (83-110); POTASSIUM SERUM 3.3 MEQ/L (3.5-5.1); SODIUM LEVEL 142 MEQ/L (136-145)
[2017-02-14] MEDS: SYMBICORT 160/4.5MCG INHALER 6GM INH (07:53)
[2017-02-14] MEDS: levETIRAcetam 250MG TABLET (KEPPRA) PO (08:41)
[2017-02-14] MEDS: METHYLPHENIDATE 5 MG TAB PO (08:41)
[2017-02-14] MEDS: VITAMIN D 1,000 INTERNATIONAL UNITS TABLET PO (08:41)
[2017-02-14] MEDS: TAMSULOSIN 0.4 MG CAP PO (08:41)
[2017-02-14] MEDS: CARVedilol 12.5 MG TAB PO (08:42)
[2017-02-14] MEDS: TORSEMIDE 5MG TABLET PO (08:42)
[2017-02-14] MEDS: LACTOBACILLUS ACIDOPHILUS CAP (BACID) PO (08:43)
[2017-02-14] MEDS: DULoxetine 30 MG CAP (CYMBALTA) PO (08:43)
[2017-02-14] MEDS: POTASSIUM CHLORIDE 10 MEQ SR TABLET PO ×3 (08:43→10:52)
[2017-02-14] MEDS: amLODIPine 10 MG TAB PO (08:43)
[2017-02-14] MEDS: POLYVINYL ALCOHOL OPHTH SOLN 15 ML(LIQUITEARS) OU (08:43)
[2017-02-14] MEDS: prednisoLONE ACET 1% OPHTH SUSP 5ML OS (08:43)
[2017-02-14] MEDS: SOD CHLORIDE OD (08:49)
[2017-02-14] MEDS: ONDANSETRON 4MG/2ML VIAL (J2405) IV (09:10)
== END 2017-02-14 11:33 | DRG 871 ==
LOC: M ED 10:33 → M ED INP 12:13 → M PCU 16:44
PROC: 0JH606Z Insertion of Pacemaker, Dual Chamber into Chest Subcutaneous Tissue and Fascia, Open Approach (ICD-10-PCS; principal; 2017-02-11 10:00)
PROC: 02H63JZ Insertion of Pacemaker Lead into Right Atrium, Percutaneous Approach (ICD-10-PCS; 2017-02-11 10:00)
PROC: 02HK3JZ Insertion of Pacemaker Lead into Right Ventricle, Percutaneous Approach (ICD-10-PCS; 2017-02-11 10:00)
DX: A41.9 Sepsis, unspecified organism (principal); J18.9 Pneumonia, unspecified organism; I50.33 Acute on chronic diastolic (congestive) heart failure; N17.9 Acute kidney failure, unspecified; I44.2 Atrioventricular block, complete; I13.0 Hypertensive heart and chronic kidney disease with heart failure and stage 1 through stage 4 chronic kidney disease, or unspecified chronic kidney disease; A04.72 Enterocolitis due to Clostridium difficile, not specified as recurrent; G40.409 Other generalized epilepsy and epileptic syndromes, not intractable, without status epilepticus; K21.9 Gastro-esophageal reflux disease without esophagitis; F32.9 Major depressive disorder, single episode, unspecified; R65.20 Severe sepsis without septic shock; E78.5 Hyperlipidemia, unspecified; N18.3 Chronic kidney disease, stage 3 (moderate); E55.9 Vitamin D deficiency, unspecified; I67.1 Cerebral aneurysm, nonruptured; I34.0 Nonrheumatic mitral (valve) insufficiency; N40.0 Benign prostatic hyperplasia without lower urinary tract symptoms; R41.3 Other amnesia; Z87.891 Personal history of nicotine dependence; Z85.831 Personal history of malignant neoplasm of soft tissue; Z85.038 Personal history of other malignant neoplasm of large intestine; Z79.899 Other long term (current) drug therapy; Z88.5 Allergy status to narcotic agent; Y95 Nosocomial condition; Z87.820 Personal history of traumatic brain injury

== ENCOUNTER 2017-03-11 12:40 | Emergency (ER) | payer MEDICARE ==
[2017-03-11 14:43] LABS: BASO % 0.1 % (0.0-1.0); EOS # 0.1 10^3/uL (0.0-0.50); HEMATOCRIT 39.1 % (42.0-52.0); HEMOGLOBIN 13.3 g/dl (14.0-18.0); IMMATURE GRANULOCYTE % 0.5 % (0-0); LYMPH # 1.1 10^3/uL (1.5-4.5); LYMPH % 14.2 % (24.0-44.0); MEAN CORPUSCULAR VOLUME 85.4 fl (80.0-96.0); MONO # 0.8 10^3/uL (0.0-0.8); MONO % 9.9 % (0.0-5.0); NEUTROPHILS # 5.8 10^3/uL (1.8-7.7); NEUTROPHILS % 74.3 % (36.0-66.0); PLATELET COUNT, AUTOMATED 241 10^3/uL (150-450); RED BLOOD COUNT 4.58 10^6/uL (4.30-6.10); RED CELL DISTRIBUTION WIDTH 14.1 % (11.5-14.5); WHITE BLOOD COUNT 7.8 10^3/uL (4.0-10.0)
[2017-03-11 15:18] LABS: ANION GAP 4 MEQ/L (8-16); BLOOD UREA NITROGEN 25 MG/DL (7-18); CALCIUM LEVEL 8.7 MG/DL (8.8-10.2); CARBON DIOXIDE LEVEL 28 MEQ/L (21-32); CHLORIDE LEVEL 107 MEQ/L (98-107); CPK CREATINE PHOSPHOKINASE 23 U/L (39-308); CREATININE FOR GFR 1.59 MG/DL (0.70-1.30); GLOMERULAR FILTRATION RATE 43.9 (>35); GLUCOSE, FASTING 96 MG/DL (83-110); POTASSIUM SERUM 4.8 MEQ/L (3.5-5.1); SODIUM LEVEL 139 MEQ/L (136-145); TROPONIN I < 0.02 NG/ML (< 0.10)
[2017-03-11 15:19] LABS: MB/CK RELATIVE INDEX 4.34 (< OR =4)
== END 2017-03-11 16:37 | disposition home or self-care (01) ==
LOC: M ED 12:40
DX: I95.1 Orthostatic hypotension (principal); N18.3 Chronic kidney disease, stage 3 (moderate); I12.9 Hypertensive chronic kidney disease with stage 1 through stage 4 chronic kidney disease, or unspecified chronic kidney disease; K21.9 Gastro-esophageal reflux disease without esophagitis; E78.9 Disorder of lipoprotein metabolism, unspecified; Z85.038 Personal history of other malignant neoplasm of large intestine; Z79.899 Other long term (current) drug therapy; Z88.5 Allergy status to narcotic agent; Z95.0 Presence of cardiac pacemaker
CPT/HCPCS: 71045

== ENCOUNTER → 2017-03-25 | Outpatient (REF) | payer MEDICARE ==
[2017-03-25 11:38] LABS: HEMATOCRIT 41.9 % (42.0-52.0); HEMOGLOBIN 13.7 g/dl (14.0-18.0); MEAN CORPUSCULAR HGB CONC 32.7 g/dl (32.0-36.5); MEAN CORPUSCULAR VOLUME 88.6 fl (80.0-96.0); PLATELET COUNT, AUTOMATED 150 10^3/uL (150-450); RED BLOOD COUNT 4.73 10^6/uL (4.30-6.10); RED CELL DISTRIBUTION WIDTH 14.1 % (11.5-14.5)
[2017-03-25 12:16] LABS: ALBUMIN 3.7 GM/DL (3.2-5.2); ALBUMIN/GLOBULIN RATIO 1.23 (1.00-1.93); ALKALINE PHOSPHATASE 74 U/L (45-117); ALT/SGPT 14 U/L (12-78); ANION GAP 5 MEQ/L (8-16); AST/SGOT 13 U/L (7-37); BILIRUBIN,TOTAL 0.4 MG/DL (0.2-1.0); BLOOD UREA NITROGEN 30 MG/DL (7-18); CALCIUM LEVEL 8.9 MG/DL (8.8-10.2); CARBON DIOXIDE LEVEL 31 MEQ/L (21-32); CHLORIDE LEVEL 104 MEQ/L (98-107); CHOLESTEROL LEVEL 163 MG/DL (<200); CHOLESTEROL RISK RATIO 3.326 (<5); CREATININE FOR GFR 1.64 MG/DL (0.70-1.30); GLOMERULAR FILTRATION RATE 42.3 (>35); GLUCOSE, FASTING 72 MG/DL (70-100); HDL CHOLESTEROL 49 MG/DL (>40); MAGNESIUM LEVEL 2.3 MG/DL (1.8-2.4); NON-HDL-C 114 MG/DL; POTASSIUM SERUM 4.8 MEQ/L (3.5-5.1); SODIUM LEVEL 140 MEQ/L (136-145); TOTAL PROTEIN 6.7 GM/DL (6.4-8.2); TRIGLYCERIDES LEVEL 145 MG/DL (<150)
== END ==
DX: I10 Essential (primary) hypertension (principal); E78.00 Pure hypercholesterolemia, unspecified; K22.70 Barrett's esophagus without dysplasia
CPT/HCPCS: 83735

== ENCOUNTER → 2017-05-19 | Outpatient (CLI) | payer MEDICARE | LOC: M RAD 16:09 | DX: R55 Syncope and collapse (principal); R56.9 Unspecified convulsions; I67.1 Cerebral aneurysm, nonruptured; R90.89 Other abnormal findings on diagnostic imaging of central nervous system | CPT/HCPCS: 70450 ==

== ENCOUNTER 2017-09-11 12:05 | Emergency (ER) | payer MEDICARE ==
[2017-09-11] MEDS ORDERED: NEOSPORIN OINT 0.9 GM PKT (FLOOR STOCK) As Ordered (15:04)
== END 2017-09-11 15:12 | disposition home or self-care (01) ==
LOC: M ED 12:05
DX: S00.83XA Contusion of other part of head, initial encounter (principal); W19.XXXA Unspecified fall, initial encounter; Y92.129 Unspecified place in nursing home as the place of occurrence of the external cause; Y93.89 Activity, other specified; Y99.9 Unspecified external cause status; M47.812 Spondylosis without myelopathy or radiculopathy, cervical region; I10 Essential (primary) hypertension; K21.9 Gastro-esophageal reflux disease without esophagitis; F32.9 Major depressive disorder, single episode, unspecified; E78.5 Hyperlipidemia, unspecified; Z95.0 Presence of cardiac pacemaker; Z79.899 Other long term (current) drug therapy; Z88.5 Allergy status to narcotic agent; Z88.8 Allergy status to other drugs, medicaments and biological substances
CPT/HCPCS: 70450

== ENCOUNTER → 2017-12-01 | Outpatient (REF) | payer MEDICARE, MEDICAID ==
[2017-12-01 16:09] LABS: HEMATOCRIT 42.5 % (42.0-52.0); HEMOGLOBIN 13.7 g/dl (13.5-17.5); MEAN CORPUSCULAR HEMOGLOBIN 28.3 pg (27.0-33.0); MEAN CORPUSCULAR HGB CONC 32.2 g/dl (32.0-36.5); MEAN CORPUSCULAR VOLUME 87.8 fl (80.0-96.0); PLATELET COUNT, AUTOMATED 195 10^3/uL (150-450); RED BLOOD COUNT 4.84 10^6/uL (4.30-6.10); RED CELL DISTRIBUTION WIDTH 14.4 % (11.5-14.5); WHITE BLOOD COUNT 8.7 10^3/uL (4.0-10.0)
[2017-12-01 16:25] LABS: PTH INTACT 92.8 PG/ML (18.5-88.0)
[2017-12-01 16:26] LABS: ALBUMIN 3.8 GM/DL (3.2-5.2); ALBUMIN/GLOBULIN RATIO 1.19 (1.00-1.93); ALKALINE PHOSPHATASE 76 U/L (45-117); ALT/SGPT 19 U/L (12-78); ANION GAP 4 MEQ/L (8-16); AST/SGOT 12 U/L (7-37); BILIRUBIN,TOTAL 0.5 MG/DL (0.2-1.0); BLOOD UREA NITROGEN 28 MG/DL (7-18); CALCIUM LEVEL 8.4 MG/DL (8.8-10.2); CARBON DIOXIDE LEVEL 32 MEQ/L (21-32); CHLORIDE LEVEL 103 MEQ/L (98-107); CREATININE FOR GFR 1.96 MG/DL (0.70-1.30); GLOMERULAR FILTRATION RATE 34.5 (>35); GLUCOSE, FASTING 83 MG/DL (70-100); MAGNESIUM LEVEL 2.2 MG/DL (1.8-2.4); POTASSIUM SERUM 5.2 MEQ/L (3.5-5.1); SODIUM LEVEL 139 MEQ/L (136-145)
== END ==
LOC: M SFHCPLAZ 14:28
DX: N18.3 Chronic kidney disease, stage 3 (moderate) (principal); Z85.038 Personal history of other malignant neoplasm of large intestine; I12.9 Hypertensive chronic kidney disease with stage 1 through stage 4 chronic kidney disease, or unspecified chronic kidney disease; E03.9 Hypothyroidism, unspecified; E78.00 Pure hypercholesterolemia, unspecified
CPT/HCPCS: 83735

== ENCOUNTER → 2017-12-16 | Outpatient (REF) | payer MEDICARE, MEDICAID ==
[2017-12-16 10:21] LABS: HEMATOCRIT 44.4 % (42.0-52.0); HEMOGLOBIN 14.3 g/dl (13.5-17.5); MEAN CORPUSCULAR HEMOGLOBIN 28.7 pg (27.0-33.0); MEAN CORPUSCULAR HGB CONC 32.2 g/dl (32.0-36.5); PLATELET COUNT, AUTOMATED 201 10^3/uL (150-450); RED BLOOD COUNT 4.99 10^6/uL (4.30-6.10); RED CELL DISTRIBUTION WIDTH 14.6 % (11.5-14.5); WHITE BLOOD COUNT 6.8 10^3/uL (4.0-10.0)
[2017-12-16 10:52] LABS: ALBUMIN 3.9 GM/DL (3.2-5.2); ALBUMIN/GLOBULIN RATIO 1.22 (1.00-1.93); ALKALINE PHOSPHATASE 80 U/L (45-117); ALT/SGPT 15 U/L (12-78); ANION GAP 8 MEQ/L (8-16); AST/SGOT 13 U/L (7-37); BILIRUBIN,TOTAL 0.5 MG/DL (0.2-1.0); BLOOD UREA NITROGEN 32 MG/DL (7-18); CALCIUM LEVEL 9.2 MG/DL (8.8-10.2); CARBON DIOXIDE LEVEL 28 MEQ/L (21-32); CHLORIDE LEVEL 105 MEQ/L (98-107); CHOLESTEROL LEVEL 198 MG/DL (<200); CHOLESTEROL RISK RATIO 2.955 (<5); CREATININE FOR GFR 1.85 MG/DL (0.70-1.30); GLOMERULAR FILTRATION RATE 36.8 (>35); GLUCOSE, FASTING 151 MG/DL (70-100); HDL CHOLESTEROL 67 MG/DL (>40); LDL CHOLESTEROL 104 MG/DL (<100); MAGNESIUM LEVEL 2.2 MG/DL (1.8-2.4); NON-HDL-C 131 MG/DL; POTASSIUM SERUM 4.7 MEQ/L (3.5-5.1); SODIUM LEVEL 141 MEQ/L (136-145); TOTAL PROTEIN 7.1 GM/DL (6.4-8.2); TRIGLYCERIDES LEVEL 137 MG/DL (<150)
[2017-12-16 10:54] LABS: PTH INTACT 64.4 PG/ML (18.5-88.0)
[2017-12-16 12:35] LABS: GOLD SPEC TUBE RECIEVED
== END ==
DX: E78.00 Pure hypercholesterolemia, unspecified (principal); E03.9 Hypothyroidism, unspecified; N18.3 Chronic kidney disease, stage 3 (moderate); I12.9 Hypertensive chronic kidney disease with stage 1 through stage 4 chronic kidney disease, or unspecified chronic kidney disease; Z85.038 Personal history of other malignant neoplasm of large intestine
CPT/HCPCS: 83735

== ENCOUNTER 2017-12-27 10:08 | Observation (INO) | payer MEDICARE, MEDICAID ==
[2017-12-27] MEDS: methylPREDNISolone INJ 125 MG/2 ML VIAL (J2930) IV (11:16)
[2017-12-27] MEDS: IPRATROPIUM 0.5MG/ALBUTEROL 2.5MG INH SOL UD 3ML (DUONEB)(J7620) NEB (11:18)
[2017-12-27] MEDS: ALBUTEROL SULFATE 2.5 MG/0.5 ML INH NEB SOLN INH (11:19)
[2017-12-27 11:24] LABS: EOS % 0.2 % (0.0-3.0); HEMATOCRIT 42.6 % (42.0-52.0); HEMOGLOBIN 14.2 g/dl (13.5-17.5); IMMATURE GRANULOCYTE % 0.8 % (0-3.0); LYMPH # 1.1 10^3/uL (1.5-4.5); LYMPH % 17.4 % (24.0-44.0); MEAN CORPUSCULAR HEMOGLOBIN 28.2 pg (27.0-33.0); MEAN CORPUSCULAR HGB CONC 33.3 g/dl (32.0-36.5); MEAN CORPUSCULAR VOLUME 84.7 fl (80.0-96.0); MONO # 0.9 10^3/uL (0.0-0.8); MONO % 14.2 % (0.0-5.0); NEUTROPHILS # 4.4 10^3/uL (1.8-7.7); NEUTROPHILS % 67.4 % (36.0-66.0); PLATELET COUNT, AUTOMATED 183 10^3/uL (150-450); RED BLOOD COUNT 5.03 10^6/uL (4.30-6.10); RED CELL DISTRIBUTION WIDTH 15.2 % (11.5-14.5); WHITE BLOOD COUNT 6.6 10^3/uL (4.0-10.0)
[2017-12-27] MEDS ORDERED: METAL LOCK LOOP XX (11:45)
[2017-12-27 12:24] LABS: ALBUMIN/GLOBULIN RATIO 1.21 (1.00-1.93); ALKALINE PHOSPHATASE 69 U/L (45-117); ALT/SGPT 19 U/L (12-78); ANION GAP 6 MEQ/L (8-16); AST/SGOT 14 U/L (7-37); BILIRUBIN,DIRECT 0.1 MG/DL (0.0-0.2); BILIRUBIN,TOTAL 0.6 MG/DL (0.2-1.0); BLOOD UREA NITROGEN 29 MG/DL (7-18); CALCIUM LEVEL 9.2 MG/DL (8.8-10.2); CARBON DIOXIDE LEVEL 29 MEQ/L (21-32); CHLORIDE LEVEL 105 MEQ/L (98-107); CPK CREATINE PHOSPHOKINASE 105 U/L (39-308); CREATININE FOR GFR 1.82 MG/DL (0.70-1.30); FREE T4 1.14 NG/DL (0.76-1.46); GLOMERULAR FILTRATION RATE 37.5 (>35); GLUCOSE, FASTING 93 MG/DL (70-100); LIPASE 91 U/L (73-393); MB/CK RELATIVE INDEX 1.43 (< OR =4); NT-PRO BNP 419 PG/ML (<450); POTASSIUM SERUM 4.7 MEQ/L (3.5-5.1); SODIUM LEVEL 140 MEQ/L (136-145); TOTAL PROTEIN 7.3 GM/DL (6.4-8.2); TROPONIN I < 0.02 NG/ML (< 0.10)
[2017-12-27 13:53] LABS: CPK CREATINE PHOSPHOKINASE 97 U/L (39-308); MB/CK RELATIVE INDEX 1.34 (< OR =4); TROPONIN I < 0.02 NG/ML (< 0.10)
[2017-12-27] MEDS: NS 1,000 ML IV (14:45)
[2017-12-27 15:02] LABS: KETONE, URINE AUTO RFX NEGATIVE (NEGATIVE); MUCUS, URINE RFX SMALL (NEGATIVE); NITRITE, URINE AUTO RFX NEGATIVE (NEGATIVE); RBC, URINE AUTO RFX 2 /HPF (0-3); SPECIFIC GRAVITY UR AUTO RFX 1.011 (1.002-1.035); SQUAM EPITHELIAL CELL UR AURFX 0 /HPF (0-6); WBC, URINE AUTO RFX 5 /HPF (0-3)
[2017-12-27 15:26] LABS: LEUKOCYTE ESTERASE UR AUTO RFX TRACE (NEGATIVE)
[2017-12-27] MEDS ORDERED: IPRATROPIUM 0.5MG/ALBUTEROL 2.5MG INH SOL UD 3ML (DUONEB)(J7620) NEB (15:45)
[2017-12-27] MEDS ORDERED: ACETAMINOPHEN TAB 650MG DOSE (2X325MG) PO (15:45)
[2017-12-27] MEDS ORDERED: NAPROXEN 250 MG TAB PO (15:45)
[2017-12-27] MEDS ORDERED: TRIAMCINOLONE ACET 0.1% CREAM 80 GM TOP (15:45)
[2017-12-27] MEDS ORDERED: CALCIUM CARBONATE 500 MG CHEW U/D PO (15:45)
[2017-12-27] MEDS ORDERED: MOM 30ML SUSPENSION UDC PO (15:45)
[2017-12-27] MEDS: SOD CHLORIDE OD ×2 (16:00→20:49)
[2017-12-27] MEDS: GABAPENTIN 300 MG CAP PO (20:42)
[2017-12-27] MEDS: POTASSIUM CHLORIDE 10 MEQ SR TABLET PO (20:42)
[2017-12-27] MEDS: levETIRAcetam 250MG TABLET (KEPPRA) PO (20:42)
[2017-12-27] MEDS: traZODone 50 MG TAB PO (20:43)
[2017-12-27] MEDS: SIMVASTATIN 20 MG TAB PO (20:43)
[2017-12-27] MEDS: methylPREDNISolone INJ 40 MG/1 ML VIAL (J2920) IV (20:43)
[2017-12-28] MEDS: methylPREDNISolone INJ 40 MG/1 ML VIAL (J2920) IV ×5 (00:53→23:39)
[2017-12-28] MEDS: LEVOTHYROXINE 50MCG TABLET (0.05MG) PO (05:47)
[2017-12-28 08:00] LABS: MEAN CORPUSCULAR HEMOGLOBIN 28.4 pg (27.0-33.0); MEAN CORPUSCULAR HGB CONC 33.3 g/dl (32.0-36.5); MEAN CORPUSCULAR VOLUME 85.3 fl (80.0-96.0); PLATELET COUNT, AUTOMATED 182 10^3/uL (150-450); RED BLOOD COUNT 4.57 10^6/uL (4.30-6.10); RED CELL DISTRIBUTION WIDTH 14.6 % (11.5-14.5); WHITE BLOOD COUNT 11.1 10^3/uL (4.0-10.0)
[2017-12-28 08:29] LABS: ANION GAP 6 MEQ/L (8-16); BLOOD UREA NITROGEN 32 MG/DL (7-18); CALCIUM LEVEL 8.4 MG/DL (8.8-10.2); CARBON DIOXIDE LEVEL 24 MEQ/L (21-32); CHLORIDE LEVEL 106 MEQ/L (98-107); CREATININE FOR GFR 1.56 MG/DL (0.70-1.30); GLOMERULAR FILTRATION RATE 44.8 (>35); GLUCOSE, FASTING 146 MG/DL (70-100); POTASSIUM SERUM 4.6 MEQ/L (3.5-5.1); SODIUM LEVEL 136 MEQ/L (136-145)
[2017-12-28] MEDS: GABAPENTIN 300 MG CAP PO ×2 (08:51→21:38)
[2017-12-28] MEDS: DULoxetine 30 MG CAP (CYMBALTA) PO (08:51)
[2017-12-28] MEDS: POTASSIUM CHLORIDE 10 MEQ SR TABLET PO ×2 (08:52→21:37)
[2017-12-28] MEDS: VITAMIN D 1,000 INTERNATIONAL UNITS TABLET PO (08:52)
[2017-12-28] MEDS: levETIRAcetam 250MG TABLET (KEPPRA) PO ×2 (08:52→21:37)
[2017-12-28] MEDS: TAMSULOSIN 0.4 MG CAP PO (08:52)
[2017-12-28] MEDS: SOD CHLORIDE OD ×3 (09:00→21:39)
[2017-12-28] MEDS: TORSEMIDE 5MG TABLET PO (09:00)
[2017-12-28] MEDS: prednisoLONE ACET 1% OPHTH SUSP 5ML OS (11:01)
[2017-12-28] MEDS: FLUTICASONE PROP 0.05% NASAL SPRAY 16 GM (FLONASE) NARES (11:01)
[2017-12-28] MEDS: TRIAMCINOLONE ACET 0.1% CREAM 15 GM TOP (11:02)
[2017-12-28] MEDS: HEPARIN SOD (PORCINE) 5000 UNITS/ML VIAL SQ ×2 (14:00→21:38)
[2017-12-28] MEDS: traZODone 50 MG TAB PO (21:38)
[2017-12-28] MEDS: SIMVASTATIN 20 MG TAB PO (21:38)
[2017-12-29] MEDS: LEVOTHYROXINE 50MCG TABLET (0.05MG) PO (06:21)
[2017-12-29] MEDS: HEPARIN SOD (PORCINE) 5000 UNITS/ML VIAL SQ (06:22)
[2017-12-29] MEDS: methylPREDNISolone INJ 40 MG/1 ML VIAL (J2920) IV (06:22)
[2017-12-29 06:58] LABS: HEMATOCRIT 39.5 % (42.0-52.0); HEMOGLOBIN 12.9 g/dl (13.5-17.5); MEAN CORPUSCULAR HEMOGLOBIN 28.5 pg (27.0-33.0); MEAN CORPUSCULAR HGB CONC 32.7 g/dl (32.0-36.5); MEAN CORPUSCULAR VOLUME 87.2 fl (80.0-96.0); PLATELET COUNT, AUTOMATED 185 10^3/uL (150-450); RED BLOOD COUNT 4.53 10^6/uL (4.30-6.10); RED CELL DISTRIBUTION WIDTH 14.8 % (11.5-14.5); WHITE BLOOD COUNT 11.7 10^3/uL (4.0-10.0)
[2017-12-29 07:16] LABS: ANION GAP 7 MEQ/L (8-16); BLOOD UREA NITROGEN 33 MG/DL (7-18); CALCIUM LEVEL 8.4 MG/DL (8.8-10.2); CARBON DIOXIDE LEVEL 24 MEQ/L (21-32); CHLORIDE LEVEL 107 MEQ/L (98-107); CREATININE FOR GFR 1.52 MG/DL (0.70-1.30); GLOMERULAR FILTRATION RATE 46.2 (>35); GLUCOSE, FASTING 138 MG/DL (70-100); POTASSIUM SERUM 4.4 MEQ/L (3.5-5.1); SODIUM LEVEL 138 MEQ/L (136-145)
[2017-12-29] MEDS: TORSEMIDE 5MG TABLET PO (08:26)
[2017-12-29] MEDS: POTASSIUM CHLORIDE 10 MEQ SR TABLET PO (08:26)
[2017-12-29] MEDS: TAMSULOSIN 0.4 MG CAP PO (08:26)
[2017-12-29] MEDS: VITAMIN D 1,000 INTERNATIONAL UNITS TABLET PO (08:26)
[2017-12-29] MEDS: GABAPENTIN 300 MG CAP PO (08:27)
[2017-12-29] MEDS: DULoxetine 30 MG CAP (CYMBALTA) PO (08:27)
[2017-12-29] MEDS: levETIRAcetam 250MG TABLET (KEPPRA) PO (08:27)
[2017-12-29] MEDS: FLUTICASONE PROP 0.05% NASAL SPRAY 16 GM (FLONASE) NARES (08:28)
[2017-12-29] MEDS: prednisoLONE ACET 1% OPHTH SUSP 5ML OS (08:28)
[2017-12-29] MEDS: SOD CHLORIDE OD (08:28)
[2017-12-29] MEDS ORDERED: methylPREDNISolone INJ 40 MG/1 ML VIAL (J2920) IV (18:00)
== END 2017-12-29 12:23 | disposition home or self-care (01) ==
LOC: M MSPAV 12-29 02:17 → M ED 10:08 → M ED INP 15:37 → M MSPAV 17:20
PROVIDERS: Internal Medicine
DX: J44.1 Chronic obstructive pulmonary disease with (acute) exacerbation (principal); I12.9 Hypertensive chronic kidney disease with stage 1 through stage 4 chronic kidney disease, or unspecified chronic kidney disease; N18.9 Chronic kidney disease, unspecified; E03.9 Hypothyroidism, unspecified; F41.9 Anxiety disorder, unspecified; F32.9 Major depressive disorder, single episode, unspecified; E78.5 Hyperlipidemia, unspecified; Z95.0 Presence of cardiac pacemaker; Z79.52 Long term (current) use of systemic steroids; Z79.899 Other long term (current) drug therapy; Z88.8 Allergy status to other drugs, medicaments and biological substances
CPT/HCPCS: J2930